=== PATIENT | female | born 1950 | race Caucasian/White ===

== ENCOUNTER 2019-10-03 09:49 | Outpatient (CLI) | payer MEDICARE, SELFPAY ==
--- NOTE | 2019-10-03 10:06 | ECG_ITS ---
Measurements Intervals [place] Rate: 62 P: 72 KS: 206 QRS: -22 QRSD: 94 T: 24 QT: 408 QTc: 417 Interpretive Statements SINUS RHYTHM BORDERLINE AV CONDUCTION DELAY BORDERLINE ST-T WAVE ABNORMALITY- ANT/INF LEADS BASELINE ARTIFACT- I, II, AVR BORDERLINE ECG Electronically Signed On 10-03-2019 10:35:05 DIRECTOR OPERATING ROOM by Mario Encarnacion D.O.
== END 2019-10-03 09:50 | disposition home or self-care (01) ==
PROVIDERS: PCP Family Medicine; Visit Provider Family Medicine
DX: R07.89 Other chest pain (principal); I45.9 Conduction disorder, unspecified
CPT/HCPCS: 93005

== ENCOUNTER 2020-03-27 08:29 | Outpatient (CLI) | payer MEDICARE, SELFPAY ==
--- NOTE | ~2020-03-27 | MM_ITS ---
EXAMINATION: MM screening genesis BI w frank HISTORY: Screening mammogram TECHNIQUE: Craniocaudal and mediolateral oblique 3-D tomosynthesis images were obtained and synthetic 2-D images were generated. CAD analysis was submitted and interpreted. COMPARISON: 6 01/19/2019, 12/24/2017, 11/30/2016 bilateral digital screening mammogram examinations BREAST PARENCHYMAL COMPOSITION: There are scattered areas of fibroglandular density. FINDINGS: Stable mild fibroglandular asymmetry. There is no evidence of suspicious mass, calcificatio n, or architectural distortion to suggest malignancy in either breast. There has been no suspicious i nterval change. IMPRESSION: 1. No mammographic evidence of malignancy. 2. Recommend routine screening mammography in one year. BI-RADS Category 2: Benign finding(s). Reviewed, dictated and finalized at location A.
--- NOTE | ~2020-03-27 | DEXA_ITS ---
Bone Density Report Name: Cornelia Busby Age: 70 Sex: Female Ethnicity: White Date of : 1950 Indication: postmenopausal; Referring Provider: CHRISTIANA JOSEPH Study: Bone densitometry was performed. Exam Date: March 27, 2020 Accession number: [id number] Bone Density: Region BMD T-score Z-score Classification AP Spine (L1-L4) 0.912 -1.2 1.0 Osteopenia Femoral Neck (Left) 0.687 -1.5 0.5 Osteopenia Total Hip (Left) 0.894 -0.4 1.2 Normal Total Hip Bilateral Avg 0.923 -0.2 1.5 Normal Femoral Neck (Right) 0.731 -1.1 0.9 Osteopenia Total Hip (Right) 0.951 0.1 1.7 Normal World Health Organization criteria for BMD impression classify patients as: Normal (T-score at or above -1.0), Osteopenia (T-score between -1.0 and -2.5), or Osteoporosis (T-score at or below -2.5). 10-year Fracture Risk(1): Major Osteoporotic Fracture 9.9% Hip Fracture 1.5% Reported Risk Factors: [place] (), Neck BMD=0.687, BMI=31.0 (1) FRAX(R) Version 3.08. Fracture probability calculated for an untreated patient. Fracture probability may be lower if the patient has received treatment. Previous Exams: Region Exam Age BMD T-score BMD Change BMD Change Date g/cm2 vs Baseline vs Previous AP Spine(L1-L4) 03/27/2020 70 0.912 -1.2 -0.131(-12.6%) -0.077(-7.8%)* 11/30/2016 66 0.989 -0.5 -0.054(-5.2%)# 0.062(6.7%)# 08/22/2013 63 0.927 -1.1 -0.116(-11.1%) 0.027(3.0%)* 07/20/2011 61 0.900 -1.3 -0.143(-13.7%) -0.060(-6.3%)# 05/07/2008 58 0.960 -0.8 -0.083(-7.9%)* -0.083(-7.9%)* 02/23/2005 55 1.043 0.0 Total Hip(Left) 03/27/2020 70 0.894 -0.4 -0.042(-4.5%)# -0.050(-5.3%)* 11/30/2016 66 0.944 0.0 0.009(0.9%)# 0.004(0.4%)# 08/22/2013 63 0.940 0.0 0.005(0.5%)# -0.011(-1.2%) 07/20/2011 61 0.952 0.1 0.016(1.7%)# 0.035(3.9%)# 05/07/2008 58 0.916 -0.2 -0.019(-2.1%) -0.019(-2.1%) 02/23/2005 55 0.935 -0.1 Total Hip(Right) 03/27/2020 70 0.951 0.1 -0.009(-0.9%)# -0.035(-3.6%)* 11/30/2016 66 0.987 0.4 0.026(2.7%)# 0.005(0.5%)# 08/22/2013 63 0.982 0.3 0.021(2.2%)# 0.006(0.6%) 07/20/2011 61 0.976 0.3 0.015(1.6%)# 0.035(3.8%)# 05/07/2008 58 0.941 0.0 -0.020(-2.1%) -0.020(-2.1%) 02/23/2005 55 0.961 0.2 *Denotes significance at 95% confidence level, LSC for AP Spine = 0.022 g/cm2, LSC for Total Hip = 0.027 g/cm2 Clinical Information Provided by Patient: Has used the following medications: V
== END 2020-03-27 08:30 | disposition home or self-care (01) ==
LOC: ANHIMG 08:30
PROVIDERS: PCP Family Medicine; Visit Provider Family Medicine
DX: Z12.31 Encounter for screening mammogram for malignant neoplasm of breast (principal); Z78.0 Asymptomatic menopausal state; M85.88 Other specified disorders of bone density and structure, other site; M85.852 Other specified disorders of bone density and structure, left thigh; M85.851 Other specified disorders of bone density and structure, right thigh
CPT/HCPCS: 77063; 77067; 77080

== ENCOUNTER 2021-06-03 09:56 | Outpatient (CLI) | payer MEDICARE, SELFPAY ==
--- NOTE | ~2021-06-03 | MM_ITS ---
EXAMINATION: MM screening genesis BI w frank HISTORY: Screening mammogram TECHNIQUE: Craniocaudal and mediolateral oblique 3-D tomosynthesis images were obtained and synthetic 2-D images were generated. CAD analysis was submitted and interpreted. COMPARISON: 03/27/2020, 01/19/2019, 12/14/2017 bilateral digital screening mammogram examinations BREAST PARENCHYMAL COMPOSITION: There are scattered areas of fibroglandular density. FINDINGS: There is no evidence of suspicious mass, calcification, or architectural distortion to sugg est malignancy in either breast. There has been no suspicious interval change. IMPRESSION: 1. No mammographic evidence of malignancy. 2. Recommend routine screening mammography in one year. BI-RADS Category 1: Negative Reviewed, dictated and finalized at location A.
== END 2021-06-03 09:57 | disposition home or self-care (01) ==
LOC: ANHIMG 09:58
PROVIDERS: PCP Family Medicine; Visit Provider Family Medicine
DX: Z12.31 Encounter for screening mammogram for malignant neoplasm of breast (principal)
CPT/HCPCS: 77063; 77067

== ENCOUNTER 2021-09-30 09:32 | Outpatient (CLI) | payer MEDICARE, SELFPAY ==
--- NOTE | ~2021-09-30 | XR_ITS ---
EXAMINATION: XR hip RT min 3V w AP pelvis INDICATION: Right hip pain TECHNIQUE: AP view of the pelvis and three views of the right hip are obtained. COMPARISON: 11/21/2012 FINDINGS: Bone alignment is normal. There is no fracture. There is moderate osteoarthritis of the hip s. The soft tissues are unremarkable. IMPRESSION: 1. Moderate osteoarthritis of the hips. Reviewed, dictated and finalized at location F. TED HISTORY TOUR GUIDE
== END 2021-09-30 09:33 | disposition home or self-care (01) ==
LOC: ANHIMG 09:33
PROVIDERS: PCP Family Medicine; Visit Provider Family Medicine
DX: M16.0 Bilateral primary osteoarthritis of hip (principal)
CPT/HCPCS: 73502

== ENCOUNTER 2022-09-08 09:44 | Outpatient (CLI) | payer MEDICARE, SELFPAY ==
--- NOTE | ~2022-09-08 | MM_ITS ---
EXAMINATION: MM screening genesis BI w frank HISTORY: Screening TECHNIQUE: Craniocaudal and mediolateral oblique 3-D tomosynthesis images were obtained and synthetic 2-D images were generated. CAD analysis was submitted and interpreted. COMPARISON: Comparison to multiple prior studies sequentially, with oldest reviewed study dated 09/20. BREAST PARENCHYMAL COMPOSITION: Breast composed of scattered areas of fibroglandular density FINDINGS: There is a new partially obscured low density mass in the central aspect of the right breas t. The left breast is stable without evidence for malignancy. IMPRESSION: 1. New obscured right breast mass located centrally. 2. Additional mammographic views and possible breast ultrasound are recommended. BI-RADS Category 0: Incomplete: Needs additional imaging evaluation. Reviewed, dictated and finalized at location A. LEIZER IMPRESSION: 1. New obscured right breast mass located centrally. 2. Additional mammographic views and possible breast ultrasound are recommended . BI-RADS Category 0: Incomplete: Needs additional imaging evaluation.
== END 2022-09-08 09:45 | disposition home or self-care (01) ==
PROVIDERS: PCP Family Medicine; Visit Provider Family Medicine
DX: Z12.31 Encounter for screening mammogram for malignant neoplasm of breast (principal); R92.8 Other abnormal and inconclusive findings on diagnostic imaging of breast
CPT/HCPCS: 77063; 77067

== ENCOUNTER 2022-09-25 12:40 | Outpatient (CLI) | payer MEDICARE, SELFPAY ==
--- NOTE | ~2022-09-25 | MMUS_ITS ---
EXAMINATION: MM diagnostic genesis RT w frank, US breast RT complete HISTORY: New obscured right central breast mass reported on 09/08/2022 screening mammogram TECHNIQUE: Additional 3-D tomosynthesis images of the right breast were performed and synthetic 2-D i mages were generated. CAD analysis was submitted and interpreted. High resolution complete right iron st ultrasound examination including all 4 quadrants and subareolar area was performed. COMPARISON: 09/08/2022 bilateral screening mammogram BREAST PARENCHYMAL COMPOSITION: The breasts are heterogeneously dense, which may obscure small masses . FINDINGS: MAMMOGRAPHIC FINDINGS: No suspicious mass, architectural distortion, malignant calcification, skin thickening or retraction is detected. The heterogeneously dense stroma may obscure a mass. Ultrasound examination therefore was performed. ULTRASOUND: No suspicious mass or shadowing, cyst or other significant sonographic finding is noted in the right breast. IMPRESSION: 1. No mammographic evidence of right breast malignancy 2. Routine annual mammographic screening is recommended BI-RADS Category 1: Negative Reviewed, dictated and finalized at location A. CHASER IMPRESSION: 1. No mammographic evidence of right breast malignancy 2. Routine annual mammographic screening is recommended BI-RADS Category 1: Negative
== END 2022-09-25 12:41 | disposition home or self-care (01) ==
LOC: ANHIMG 12:41
PROVIDERS: PCP Family Medicine; Visit Provider Physician Assistant
DX: R92.8 Other abnormal and inconclusive findings on diagnostic imaging of breast (principal)
CPT/HCPCS: 76641; 77061; 77065; G0279

== ENCOUNTER 2023-10-30 15:58 | Emergency (ER) | payer MEDICARE, SELFPAY ==
[2023-10-30 16:07] VITALS: BP 133/62; PULSE 71; RESP 16; TEMP 36.2; O2SAT 100
--- NOTE | 2023-10-30 16:19 | ED.FEMALEGU ---
HPI - Female Genitourinary General Chief complaint: Urogenital-Female Stated complaint: uti Time Seen by Provider: 10/30/23 16:08 Source: patient and RN notes reviewed Mode of arrival: ambulatory Limitations: no limitations History of Present Illness HPI Narrative: Patient presents today complaining of lower abdominal pressure and urinary frequency. Symptoms began today. Denies any additional symptoms to include dysuria, hematuria, back pain, fever. No ogkd-bbh-dliyrag treatment prior to arrival. Related Data Home Medications Medication Instructions Recorded Confirmed biotin-chromium 2 mg-600 mcg 1 cap PO DAILY 11/11/21 10/30/23 capsule famotidine 20 mg tablet 20 mg PO BID 02/22/23 10/30/23 magnesium 250 mg tablet 250 mg PO DAILY 02/22/23 10/30/23 losartan 25 mg tablet 25 mg PO DAILY 07/07/23 10/30/23 amitriptyline 25 mg tablet 25 mg PO DAILY 10/30/23 10/30/23 Allergies Allergy/AdvReac Type Severity Reaction Status Date / Time hydrocodone AdvReac Intermediate Hyperactive Verified 10/30/23 16:15 Review of Systems Review of Systems: CONSTITUTIONAL: Denies body aches, fever, chills, or sweats. EYES: Denies visual changes, redness, or discharge. ENT: Denies rhinorrhea, congestion, sore throat, or otalgia. CARDIOVASCULAR: Denies chest pain, palpitations, or edema. RESPIRATORY: Denies cough or dyspnea. GASTROINTESTINAL: Denies abdominal pain, nausea, vomiting, or diarrhea. GENITOURINARY: Denies dysuria or hematuria.+ frequency, lower abdominal pressure SKIN: Denies rash, itching, or wounds. MUSCULOSKELETAL: Denies back pain, joint pain, or myalgia. NEUROLOGIC: Denies headache, numbness, tingling, or weakness. PSYCH: Denies depression or anxiety. [facility] Past Medical History Medical History Anxiety Arthritis of shoulder region, right Chronic cholecystitis with calculus Encounter for immunization Essential (primary) hypertension Gastroesophageal reflux disease Insomnia Pure hypercholesterolemia Vitamin D deficiency Surgical History Surgical History History of bilateral tubal ligation History of cholecystectomy History of tonsillectomy Family History Family History Father Hypertension Family history of thyroid disease Family history of coronary artery disease Mother Hypertension Family history of diabetes mellitus in first degree relative Family history of malignant neoplasm of brain Family history of heart disease in male family member before age 55 Diabetes mellitus Family history of hypercholesterolemia Family history of coronary artery disease, Onset Age: 70 Sibling Patient's sister is in good health Patient's brother is in good health Social History Social History Smoking status: Never smoker Second hand tobacco smoke exposure: No Alcohol intake: current Alcohol use details: rare Substance use: never Substance use type: does not use Lack of Transportation: No Lack of Food: Never True Current Housing: I Have Housing Concerned About Future Housing: No Difficulty Paying Gas/Electric Bills: No Difficulty Paying for Meds: Decline to Answer Currently Unemployed: No Education: Associate Degree Difficulty w/ Childcare or Family Care: No Living arrangements: with family Occupation/Education: retired Gender identity (if verbalized by the patient): Female Sexual Orientation (if Verbalized by the Patient): Straight or Heterosexual Spiritual care concerns: No Agree to blood products: Yes Comments At time of signature, I have reviewed and agree with nursing past medical, surgical, social and family history unless otherwise noted. Please see nursing chart for further information. There is no relevant family histo
== END 2023-10-30 16:21 | disposition home or self-care (01) ==
PROVIDERS: Emergency Provider Nurse Practitioner; PCP Family Medicine
DX: N39.0 Urinary tract infection, site not specified (principal); B96.20 Unspecified Escherichia coli [E. coli] as the cause of diseases classified elsewhere; I10 Essential (primary) hypertension; K21.9 Gastro-esophageal reflux disease without esophagitis; E78.00 Pure hypercholesterolemia, unspecified; M19.011 Primary osteoarthritis, right shoulder
CPT/HCPCS: 81003; 87077; 87086; 87088; 87186; 99213; G0463

== ENCOUNTER 2024-01-14 08:48 | Outpatient (CLI) | payer MEDICARE, SELFPAY ==
--- NOTE | ~2024-01-14 | MM_ITS ---
EXAMINATION: MM screening genesis BI w frank HISTORY: Screening TECHNIQUE: Craniocaudal and mediolateral oblique 3-D tomosynthesis images were obtained and synthetic 2-D images were generated. CAD analysis was submitted and interpreted. COMPARISON: Comparison to multiple prior studies sequentially, with oldest reviewed study dated 03/2018. BREAST PARENCHYMAL COMPOSITION: The breasts are heterogeneously dense, which may obscure small masses . FINDINGS: There is no evidence of suspicious mass, calcification, or architectural distortion to sugg est malignancy in either breast. There has been no suspicious interval change. IMPRESSION: 1. No mammographic evidence of malignancy. 2. Recommend routine screening mammography in one year. BI-RADS Category 1: Negative Reviewed, dictated and finalized at location B.
== END 2024-01-14 08:49 | disposition home or self-care (01) ==
PROVIDERS: PCP Family Medicine; Visit Provider Physician Assistant Medical
DX: Z12.31 Encounter for screening mammogram for malignant neoplasm of breast (principal)
CPT/HCPCS: 77063; 77067

== ENCOUNTER 2024-03-18 08:44 | Outpatient (CLI) | payer MEDICARE, SELFPAY ==
--- NOTE | ~2024-03-18 | DEXA_ITS ---
Bone Density Report Name: NABOR JAVED Age: 74 Sex: Female Ethnicity: White Date of : 1950 Indication: osteopenia; Referring Provider: CHRISTIANA JOSEPH Study: Bone densitometry was performed. Exam Date: March 18, 2024 Accession number: [id number] Bone Density: Region BMD T-score Z-score Classification AP Spine(L1-L4) 0.973 -0.7 1.8 Normal Femoral Neck (Left) 0.714 -1.2 0.9 Osteopenia Total Hip (Left) 0.901 -0.3 1.5 Normal Femoral Neck (Right) 0.719 -1.2 1.0 Osteopenia Total Hip (Right) 0.947 0.0 1.9 Normal Total Hip Mean 0.924 -0.2 1.7 Normal World Health Organization criteria for BMD impression classify patients as: Normal (T-score at or above -1.0), Osteopenia (T-score between -1.0 and -2.5), or Osteoporosis (T-score at or below -2.5). 10-year Fracture Risk(1): Major Osteoporotic Fracture 10% Hip Fracture 1.8% Reported Risk Factors: [place] (), Neck BMD=0.714, BMI=31.6 (1) FRAX(R) Version 3.08. Fracture probability calculated for an untreated patient. Fracture probability may be lower if the patient has received treatment. Previous Exams: Region Exam Age BMD T-score BMD Change BMD Change Date g/cm2 vs Baseline vs Previous AP Spine (L1-L4) 03/18/2024 74 0.973 -0.7 0.046 (5.0%)# 0.061 (6.7%)* 03/27/2020 70 0.912 -1.2 -0.015 (-1.6%) -0.077 (-7.8%) 11/30/2016 66 0.989 -0.5 0.062 (6.7%)# 0.062 (6.7%)# 08/22/2013 63 0.927 -1.1 Total Hip(Left) 03/18/2024 74 0.901 -0.3 -0.039 (-4.1%) 0.008 (0.9%) 03/27/2020 70 0.894 -0.4 -0.047 (-4.9%) -0.050 (-5.3%) 11/30/2016 66 0.944 0.0 0.004 (0.4%)# 0.004 (0.4%)# 08/22/2013 63 0.940 0.0 Total Hip(Right) 03/18/2024 74 0.947 0.0 -0.035 (-3.6%) -0.005 (-0.5%) 03/27/2020 70 0.951 0.1 -0.030 (-3.1%) -0.035 (-3.6%) 11/30/2016 66 0.987 0.4 0.005 (0.5%)# 0.005 (0.5%)# 08/22/2013 63 0.982 0.3 *Denotes significance at 95% confidence level, LSC for AP Spine = 0.022 g/cm2, LSC for Total Hip = 0.027 g/cm2 # Denotes dissimilar scan types or analysis methods Clinical Information Provided by Patient: Has used the following medications: Vitamin D, Calcium Patient maximum height was 63 Menopause Age: 53 Drinks caffeinated beverages Onset of menses at age 13 Number of children 4 Impression: The patient has low bone mass, based on the Left Femoral Neck T-score. The patient has an estimate
== END 2024-03-18 08:45 | disposition home or self-care (01) ==
LOC: ANHIMG 08:45
PROVIDERS: PCP Family Medicine; Visit Provider Family Medicine
DX: Z78.0 Asymptomatic menopausal state (principal); M85.852 Other specified disorders of bone density and structure, left thigh; M85.851 Other specified disorders of bone density and structure, right thigh
CPT/HCPCS: 77080

== ENCOUNTER 2024-08-21 08:02 | Emergency (ER) | payer MEDICARE, SELFPAY ==
--- NOTE | 2024-08-21 08:06 | ED.FEMALEGU ---
HPI - Female Genitourinary General Chief complaint: Urogenital-Female Stated complaint: uti symptoms Time Seen by Provider: 08/21/24 08:05 Source: patient, RN notes reviewed and old records reviewed Mode of arrival: ambulatory Limitations: no limitations History of Present Illness HPI Narrative: patient presents with complaints of urinary frequency and burning. She reports that she began with some pressure and frequency couple of days ago, but awakened this morning with increased pressure and dysuria. Reports that she last had a UTI over the summer, does not get them frequently. She denies any back pain or belly pain. She denies any fever, chills, sweats. She denies any nausea or vomiting. Denies any jaqueline hematuria Related Data Home Medications ?Medication ?Instructions ?Recorded ?Confirmed ?Last Taken ?Type famotidine 20 mg tablet 20 mg PO BID 02/22/23 10/30/23 Unknown History losartan 25 mg tablet 25 mg PO DAILY 07/07/23 10/30/23 Unknown History amitriptyline 25 mg tablet 25 mg PO DAILY 10/30/23 10/30/23 Unknown History melatonin 1 mg tablet 1 mg PO DAILY 08/21/24 Unknown History Allergies Allergy/AdvReac Type Severity Reaction Status Date / Time hydrocodone AdvReac Intermediate Hyperactive Verified 08/21/24 08:54 shrimp AdvReac Intermediate Nausea Verified 08/21/24 08:54 Review of Systems Review of Systems: All systems reviewed & are unremarkable except as noted in HPI and below Constitutional: Constitutional: Reports no additional constitutional complaints ENT: Reports system reviewed and no additional complaints, except as documented Cardiovascular: Cardiovascular: Reports no additional cardiovascular complaints Respiratory: Respiratory: Reports no additional respiratory complaints Gastrointestinal: Gastrointestinal: Reports no additional gastrointestinal complaints Genitourinary: Genitourinary: Reports nocturia, Reports dysuria, Reports urinary hesitancy and Reports urinary urgency [facility] Past Medical History Medical History Insomnia Encounter for immunization Arthritis of shoulder region, right Anxiety Chronic cholecystitis with calculus Essential (primary) hypertension Gastroesophageal reflux disease Pure hypercholesterolemia Vitamin D deficiency Surgical History Surgical History History of bilateral tubal ligation History of tonsillectomy History of cholecystectomy Family History Family History Father Hypertension Family history of thyroid disease Family history of coronary artery disease Mother Hypertension Family history of diabetes mellitus in first degree relative Family history of malignant neoplasm of brain Family history of heart disease in male family member before age 55 Diabetes mellitus Family history of hypercholesterolemia Family history of coronary artery disease, Onset Age: 70 Sibling Patient's sister is in good health Patient's brother is in good health Social History Social History Smoking status: Never smoker Second hand tobacco smoke exposure: No Alcohol intake: current Alcohol use details: rare Substance use: never Substance use type: does not use Lack of Transportation: No Lack of Food: Never True Current Housing: I Have Housing Concerned About Future Housing: No Difficulty Paying Gas/Electric Bills: No Difficulty Paying for Meds: Decline to Answer Currently Unemployed: No Education: Associate Degree Difficulty w/ Childcare or Family Care: No Living arrangements: with family Occupation/Education: retired Gender identity (if verbalized by the patient): Female Sexual Orientation (if Verbalized by the Patient): Straight or Heterosexual Spiritual care concerns: No Agree to blood products: Yes Comments At the time of my signature, I reviewed and agree with the nursing past medical, surgical, social, and family history. There is no relevant family history pertinent to the patient complaint. Exam Const: General: cooperative, no acute distress, alert and awake Orientation/consciousness: oriented to person, oriented to place and oriented to time HENMT: Head: normal to inspection Resp: Effort & Inspection: normal respiratory effort and able to speak in complete sentences Auscultation: clear to auscultation bilaterally, no crackles, no rales, no rhonchi and no wheezes Cardio: Palpation: normal PMI Rate: regular rate Rhythm: regular rhythm Heart sounds: S1 normal heart sound present and S2 normal heart sound present : General: Yes bladder normal to palpation and Yes no CVA tenderness Neuro: General: oriented to person, oriented to place and oriented to time Cranial nerves: Yes CN's II-XII intact bilaterally Psych: Appearance: grossly normal Thought process: Normal thought process present Insight: Good insight present (Psych) Judgement: Good judgement present (Psych) Course Course Level of Care: Express Care Visit Vital Signs Vital signs: Reviewed MDM - Female Genitourinary MDM Narrative Medical decision making narrative: UA concerning for UTI. Treat with Macrobid, culture sent. Patient nontoxic appearing stable for discharge home on p.o. antibiotic therapy. Discharge instructions reviewed with patient, as well as provided in writing per nursing staff. The instructions also include specific and strict return/GO TO THE ER as well as f/u information. All questions have been answered, and the patient deny any further questions with discharge and discharge plan. Some parts of this dictation were generated by voice recognition software and may contain typographical and/or grammatical inaccuracies. Differential Diagnosis Differential diagnosis: Likely urinary tract infection and cystitis Medical Records Attestation: I reviewed the patient's medical records. Lab Data Attestation: I reviewed the patient's lab results. Discharge Plan Discharge Clinical Impression: UTI (urinary tract infection), bacterial Patient Disposition: Home, Self-Care Condition: Stable Instructions: Antibiotic Form, Urinary Tract Infection in Women (ED) Additional Instructions: take medications as prescribed. Follow-up with primary care provider. Emergency department for any new or worsening symptoms Patient Language: Kinyarwanda Prescriptions: New nitrofurantoin monohyd/m-cryst [Macrobid] 100 mg capsule 100 mg PO Q12H 5 Days Qty: 10 0RF Rx Instructions: must administer with a meal/food No Action amitriptyline 25 mg tablet 25 mg PO DAILY metoprolol succinate 25 mg tablet extended release 24 hr 25 mg PO DAILY Qty: 90 3RF famotidine 20 mg tablet 20 mg PO BID magnesium 250 mg tablet 250 mg PO DAILY tramadol 50 mg tablet 50 mg PO Q6H PRN (Reason: pain) Qty: 20 0RF calcium citrate-vitamin D3 [Calcium Citrate + D] 315-200 mg-unit tablet 1 tablet PO DAILY Qty: 30 0RF biotin-chromium 2-600 mg-mcg capsule 1 cap PO DAILY zolpidem [Ambien] 5 mg tablet 2.5 mg PO QHS PRN (Reason: insomnia) Qty: 30 1RF losartan 25 mg tablet 25 mg PO DAILY fluoxetine 10 mg capsule 10 mg PO DAILY Qty: 90 2RF Rx Instructions: in the evening ergocalciferol (vitamin D2) 1,250 mcg (50,000 unit) capsule 1,250 mcg PO WEEKLY Qty: 12 3RF simvastatin 20 mg tablet See Rx Instructions .ROUTE .COMPLEX Qty: 90 3RF Dose Instruction: TAKE 1 TABLET BY MOUTH EVERY DAY IN THE EVENING Rx Instructions: TAKE 1 TABLET BY MOUTH EVERY DAY IN THE EVENING Follow-up/Referrals: Meera Hurt MD [Primary Care Provider] - 2 Weeks Time of Disposition: 08:57
[2024-08-21 08:12] VITALS: BP 147/74; PULSE 82; RESP 18; TEMP 36.4; O2SAT 100
[2024-08-21 08:49] LABS: EDUAAPPEAR Cloudy; EDUABILI Negative (Negative); EDUABLOOD 2+ (Negative); EDUACOLOR1 Light/Pale; EDUAGLUCOSE Negative (Negative); EDUAKETONE Negative (Negative); EDUALEUKO 3+ (Negative); EDUANITRATE Negative (Negative); EDUAPROTEIN Negative (Negative); EDUASPGRAVITY 1.015; EDUAUROBILI 0.2
== END 2024-08-21 09:02 | disposition home or self-care (01) ==
PROVIDERS: Emergency Provider Nurse Practitioner Family; PCP Family Medicine
DX: N39.0 Urinary tract infection, site not specified (principal); B96.20 Unspecified Escherichia coli [E. coli] as the cause of diseases classified elsewhere; I10 Essential (primary) hypertension; K21.9 Gastro-esophageal reflux disease without esophagitis; E78.00 Pure hypercholesterolemia, unspecified; M19.011 Primary osteoarthritis, right shoulder
CPT/HCPCS: 81003; 87086; 87186; 99213; G0463

== ENCOUNTER 2025-02-13 08:28 | Outpatient (CLI) | payer MEDICARE, SELFPAY ==
--- NOTE | ~2025-02-13 | MM_ITS ---
EXAMINATION: MM screening genesis BI w frank HISTORY: Screening TECHNIQUE: Craniocaudal and mediolateral oblique 3-D tomosynthesis images were obtained and synthetic 2-D images were generated. CAD analysis was submitted and interpreted. COMPARISON: Comparison to multiple prior studies sequentially, with oldest reviewed study dated 01/19. BREAST PARENCHYMAL COMPOSITION: Dense: The breasts are heterogeneously dense, which may obscure small masses FINDINGS: The right breast is stable without evidence for malignancy. There is a new cluster of pleom orphic calcifications in the upper outer quadrant of the left breast, posterior third. IMPRESSION: 1. New cluster of pleomorphic calcifications upper outer quadrant of the left breast posterior third. 2. Magnification views are recommended. BI-RADS Category 0: Incomplete: Needs additional imaging evaluation. Reviewed, dictated and finalized at location A. IMPRESSION: 1. New cluster of pleomorphic calcifications upper outer quadrant of the left b reast posterior third. 2. Magnification views are recommended. BI-RADS Category 0: Incomplete: Needs additional imaging evaluation.
--- OUTSIDE RECORDS SUMMARY | 2025-02-13 08:30 | XMS_ITS | Encounter Summary ---
Author Organization [facility] Address [facility] access hospital[address] [place] [address] Care Team Providers Care Transit Man Name Role Phone Meera Hurt MD Primary Care Provider [phone] Felipe Day MD Unavailable [phone] Encounter Details Date Type Department Care Team (Late st Contact Info) Description 12/06/2019 Abstract [facility], [address] [address] Jan Quintana MA Social History Tobacco Use Types Packs/Day Years Used Date Smoking Tobacco: Never Smokeless Tobacco: Never Alcohol Use Standard Drinks/Week Comments No 0 (1 standard drink = 0.6 oz pur e alcohol) AUDIT-C Answer Date Recorded Frequency of Alcohol Consumption Never 08/16/2018 Average Number of Drinks Not on file 019 Frequency of Binge Drinking Not on file 03/2019 Comments No Sex and Gender Information Value Date Recorded Sex Assigned at Not on file Legal Sex Female 8:24 PM CDT Gender Identity Not on file Sexual Orientation Not on file COVID-19 Exposure Response Date Recorded In the last month, have you been in contact with someone who was confirmed or suspected to have Coronavirus / COVID-19? No / Unsure 12/04/2019 2:49 PM CDT documented as of this encounter Plan of Treatment Upcoming Encounters Date Type Department Care Team (Late st Contact Info) Description 03/09/2025 11:45 AM CDT Office Visit [facility] [address] [place] [phone] Albaro Drew MD [address] [facility] [address] [place] [address] documented as of this encounter Procedures Procedure Name Priority Date/Time Associated Diagnosis Comments CBC (OUTSIDE LAB) Routine 11/09/2019 COMPREHENSIVE METABOLIC PANEL Routine 11/09/2019 LIPID PANEL Routine 11/09/2019 THYROID STIM HORMONE TSH Routine 11/09/2019 VITAMIN D, 25 OH Routine 11/09/2019 documented in this encounter Results * VITAMIN D, 25 OH (11/09/2019) VITAMIN D 25 HYDROXY S/P/B 37 11/09/2019 [facility] LABORATORY Final Result * THYROID STIM HORMONE, TSH (11/09/2019) TSH 2.10 11/09/2019 us [facility] LABORATORY Final Result * CBC (OUTSIDE LAB) (11/09/2019) WBC 4.6 HGB 13.6 HCT 40.7 PLT 249 11/09/2019 us [facility] Abstract LAB-OUTSIDE/ABSTRACTED Final Result * (ABNORMAL) COMPREHENSIVE METABOLIC PANEL (11/09/2019) SODIUM S/P/B 139 POTASSIUM S/P/B 4.1 CO2 25 CHLORIDE S/P/B 102 GLUCOSE 102 mg/dL CALCIUM S/P/B 9.5 BUN 11 CREATININE S/P/B 0.66 0.5 - 1.0 EGFR AFR. AMER. 103(A) <=90 EGFR NON-AFR. AMER. 89 <=90 ALKALINE PHOSPHATASE S/P/B 65 ALT 13 AST 16 BILIRUBIN TOTAL S/P/B 1.1 ALBUMIN S/P/B 4.4 3.5 - 5.0 TOTAL PROTEIN S/P/B 6.6 GLOBULIN 2.2 11/09/2019 us [facility] LAB[facility]AT[facility] Final Result * LIPID PANEL (11/09/2019) CHOLESTEROL 175 HDL 54 TRIGLYCERIDES 104 LDL (CALCULATED) 101 11/09/2019 [facility] LAB[facility]AT[facility] Final Result documented in this encounter Visit Diagnoses Not on filedocumented in this encounter Care Teams Transit Man Relationship Specialty Start Date End Date Meera Hurt MD PCP - General FAMILY PRACTICE 07/12/18 Felipe Day MD GASTROENTEROLOGY 08/16/18 documented as of this encounter
--- OUTSIDE RECORDS SUMMARY | 2025-02-13 08:30 | XMS_ITS | Encounter Summary ---
Author Organization [facility] Address [facility] [place] [address] Care Team Providers Care Health Science Writer Name Role Phone Meera Hrut MD Primary Care Provider [phone] Felipe Day MD Unavailable [phone] Encounter Details Date Type Department Care Team (Late st Contact Info) Description 05/26/2017 Abstract [facility] [address] [facility] [place] [address] , Shyanne Barbour MD Social History Tobacco Use Types Packs/Day Years Used Date Smoking Tobacco: Never Assessed Comments Unknown Sex and Gender Information Value Date Recorded Sex Assigned at Not on file Legal Sex Female 8:24 PM CDT Gender Identity Not on file Sexual Orientation Not on file documented as of this encounter Plan of Treatment Upcoming Encounters Date Type Department Care Team (Late st Contact Info) Description 03/09/2025 11:45 AM CDT Office Visit [facility] [address] [facility] [place] [phone] Albaro Drew MD [address] [address] documented as of this encounter Visit Diagnoses Not on filedocumented in this encounter Care Teams Health Science Writer Relationship Specialty Start Date End Date Meera Hurt MD PCP - General FAMILY PRACTICE 07/12/18 Felipe Day MD GASTROENTEROLOGY 08/16/18 documented as of this encounter
--- OUTSIDE RECORDS SUMMARY | 2025-02-13 08:30 | XMS_ITS | Encounter Summary ---
Author Organization [facility] Address [facility] [place] [address] Care Team Providers Care Airplane Refueler Name Role Phone Meera Hurt MD Primary Care Provider [phone] Felipe Day MD Unavailable [phone] Encounter Details Date Type Department Care Team (Late st Contact Info) Description 05/09/2013 Abstract [facility] CONVERSION [address] [place] [address] , Shyanne Barbour MD Social History Tobacco [...] Description 03/09/2025 11:45 AM CDT Office Visit [facility] [address] [place] [phone] Albaro Drew MD [address] [address] documented as of this encounter Visit Diagnoses Not on filedocumented in this encounter Care Teams Airplane Refueler Relationship Specialty Start Date End Date Meera Hurt MD PCP - General FAMILY PRACTICE 07/12/18 Felipe Day MD GASTROENTEROLOGY 08/16/18 documented as of this encounter
--- OUTSIDE RECORDS SUMMARY | 2025-02-13 08:30 | XMS_ITS | Encounter Summary ---
Author Organization [facility] Address [facility] [place] [address] Care Team Providers Care Sheetmetal Worker Name Role Phone Meera Hurt MD Primary Care Provider [phone] Felipe Day MD Unavailable [phone] Encounter Details Date Type Department Care Team (Latest Contact Info) Description 01/07/2023 [employer] Message Enc [facility] - [facility] [address] [facility] [place] [phone] Annamarie Lugo NP [address] [facility] [place] [address] Medication update Social History Tobacco Use Types Packs/Day Years Used Date Smoking Tobacco: Never Smokeless Tobacco: Never Alcohol Use Standard Drinks/Week Comments No 0 (1 standard drink = 0.6 oz pur e alcohol) AUDIT-C Answer Date Recorded Frequency of Alcohol Consumption Never 08/16/2018 Average Number of Drinks Not on file 019 Frequency of Binge Drinking Not on file 03/2019 PHQ-2 Answer Date Recorded Patient Health Questionnaire-2 Score 1 11/25/2022 Comments No Sex and Gender Information Value Date Recorded Sex Assigned at Not on file Legal Sex Female 8:24 PM CDT Gender Identity Not on file Sexual Orientation Not on file documented as of this encounter Plan of Treatment Upcoming Encounters Date Type Department Care Team (Late st Contact Info) Description 03/09/2025 11:45 AM CDT [facility] [address] [place] [phone] Albaro Drew MD [facility]. [facility] [address] [place] [address] documented as of this encounter Visit Diagnoses Not on filedocumented in this encounter Care Teams Sheetmetal Worker Relationship Specialty Start Date End Date Meera Hurt MD PCP - General FAMILY PRACTICE 07/12/18 Felipe Day MD GASTROENTEROLOGY 08/16/18 documented as of this encounter
--- OUTSIDE RECORDS SUMMARY | 2025-02-13 08:30 | XMS_ITS | Clinical Summary ---
Author Organization [facility] Address [address] [place] [address] Care Team Providers Care Rf Manager Name Role Phone Meera Hurt MD Primary Care Provider [phone] Felipe Day MD Unavailable [phone] Allergies Active Allergy Reactions Criticality Noted Date Comments Hydrocodone-Acetaminophen Hyperactive 0 Couldn't sleep Lisinopril Cough 07/24/2022 Shellfish Allergy Nausea and Vomiting 0 Medications simvastatin 20 MG tablet Take 1 tablet (20 mg total) by mouth daily. 2 06/04/2018 Active calcium carbonate-vitami n D 600-400 MG-UNIT tabletIndication s:PT HOLDING 01-04-2020 Take 1 tablet by mouth 2 (two) times daily. Indications: PT HOLDING 01-04-2020 Active melatonin 1 MG tablet Take 2 tablets (2 mg total) by mouth nightly at bedtime. Active vitamin D2, ergocalciferol, (DRISDOL) 1.25 mg capsule Take 1 capsule (1.25 mg total) by mouth once a week. 02/05/2024 Active metoprolol succinate ER (TOPROL-XL) 25 MG 24 hr tablet TAKE 1 TABLET (25 MG TOTAL) BY MOUTH DAILY. 90 tablet 3 05/15/2024 Active losartan (COZAAR) 25 MG tablet TAKE 1 TABLET (25 MG TOTAL) BY MOUTH DAILY. 90 tablet 2 07/10/2024 Active amitriptyline (ELAVIL) 25 MG tabletIndication s:Gastroesophage al reflux disease, unspecified whether esophagitis present,Epigastr ic pain Take 1 tablet (25 mg total) by mouth nightly at bedtime. 90 tablet 1 10/09/2024 Active famotidine (PEPCID) 20 MG tabletIndication s:Epigastric pain TAKE 1 TABLET BY MOUTH 2 TIMES DAILY NEEDED FOR HEARTBURN. 180 tablet 1 10/09/2024 Active Active Problems Problem Noted Date Diagnosed Date Class 1 obesity due to exces s calories without serious comorbidity with body mass index (BMI) of 31.0 to 31.9 in adult 02/18/2024 Assessment & Plan (02/18/2024 9:51 AM CDT): She is obese with a Body mass index is 31 kg/m . She was educated on lifestyle modifications including diet and exercise. She exercises 4-5 hours a week doing land and water aerobics. Encouraged continuation of workout regimen Gastroesophageal reflux dise ase, unspecified whether esophagitis present 09/23/2023 Epigastric pain 09/23/2023 Esophageal pain 09/23/2023 Bile salt gastritis 09/23/2023 Low back pain 07/19/2023 Bilateral hip pain 07/19/2023 Essential (primary) hypertension 07/18/2021 Assessment & Plan (02/18/2024 9:47 AM CDT): Blood pressure well controlled at 126/70 mmHg in office today. Patient monitors blood pressure every few days at home with consistent readings. Continue losartan 25 mg and toprol-XL 25 mg daily. Assessment & Plan (07/24/2022 9:18 AM CORPORATE COMMUNICATIONS SPECIALIST): Well controlled on current regimen Although due to cough - could be due to lisinopril - we will switch to losartan Assessment & Plan (07/18/2021 10:12 AM CORPORATE COMMUNICATIONS SPECIALIST): Her blood pressure is well controlled according to her home readings, even though her blood pressure in the office today is elevated. Continue lisinopril 10 mg daily. Palpitations 07/18/2021 Assessment & Plan (07/24/2022 8:49 AM CORPORATE COMMUNICATIONS SPECIALIST): Well controlled No issues Assessment & Plan (07/18/2021 10:12 AM CORPORATE COMMUNICATIONS SPECIALIST): Her palpitations are well controlled. Continue metoprolol succinate 25 mg daily. Hyperlipidemia, mixed 07/18/2021 Assessment & Plan (02/18/2024 9:49 AM CDT): Recent lipid panel in August with LDL of 93. Continue Simvastatin 20mg. Assessment & Plan (07/24/2022 9:19 AM CORPORATE COMMUNICATIONS SPECIALIST): 06/12/22 Total cholesterol 154 Triglycerides 1822 HDL 48 LDL 78 Continued on simvastatin 20mg daily Assessment & Plan (07/18/2021 10:13 AM CORPORATE COMMUNICATIONS SPECIALIST): Her total cholesterol has been between 160 and 180 per her report. We can continue to monitor and pursue lifestyle changes. She is currently not on statin therapy. Impingement syndrome of right shoulder Assessment & Plan (05/13/2021 11:52 AM CDT): Celebrex was giving relatively good relief until she forgot to take it for 3 days. She also stopped doing her exercises. Increased shoulder discomfort. Patient will get back on her Celebrex. Would like to avoid steroid injections. If pain increases consider steroid injection. Further evaluation with MRI if needed. Assessment & Plan (04/01/2021 10:04 AM CDT): We discussed the risks, benefits and alternatives. She is already been through 2 rounds of formal physical therapy. Would still encourage her to continue with home excise. Even with her history of a duodenal ulcer we will try a short round 1 month of Celebrex as an anti-inflammatory. She would like to avoid steroids at this time. Although we did offer injection versus Medrol Dosepak. We will also try to get her set up for a TENS unit to help with the discomfort. If there is no significant improvement may consider MRI of the shoulder. She does have a history of neck pain without numbness and tingling. If no significant pathology noted in the shoulder may need to consider further work-up of the cervical spine. Neck pain 04/01/2021 Assessment & Plan (04/01/2021 10:05 AM CDT): Hopefully more aggravation with the impingement syndrome of the shoulder than it is pathology to the cervical spine. History of duodenal ulcer 04/01/2021 Assessment & Plan (04/01/2021 10:05 AM CDT): Therefore we will only do a short round of nonsteroidal anti-inflammatories Right shoulder pain 07/09/2020 Chest pain in adult 11/24/2019 Other tear of meniscus of ri ght knee as current injury, unspecified meniscus, initial encounter 09/04/2019 Tear of meniscus of right knee 05/12/2019 Knee pain, right 01/25/2019 Overview (01/25/2019): Physical Therapy Visit Note: Patient Name: Cornelia Busby Diagnosis: No primary diagnosis found. SUBJECTIVE OBJECTIVE Treatment provided today: ASSESSMENT PLAN Arthritis Resolved Problems Problem Noted Date Diagnosed Date Resolved Date Encounter for screening colonoscopy 09/23/2023 09/27/2023 Encounter for screening colonoscopy 09/23/2023 10/18/2023 Encounter for screening colonoscopy 09/23/2023 11/08/2023 Immunizations Immunization Administration Dates Next Due Fluzone High Dose - >Age 65 (Prefilled Syringe) 05/07/2020,05/26/2019,05/02/2017,2015,05/28/2015 MODERNA COVID-19 (12+) MRNA, LNP-S, PF, 100 MCG/ 0.5 ML DOSE 10/03/2020,09/05/2020 Pneumococcal (Pneumovax 23) 05/24/2019 Pneumococcal (Prevnar 13) 05/23/2018 Shingrix 02/22/2020,10/10/2019 Zoster (Zostavax) 47528 Unt/0.65Ml 03/04/2013 Family History Medical History Relation Comments Heart Attack Mother Open Heart Mother glioblastoma Mother Relation Status Comments Brother 1 (Age 70) Brother 2 Alive Father (Age 86) Maternal Grandfather Maternal Grandmother Mother (Age 86) Paternal Grandfather Paternal Grandmother Sister 1 Alive Sister 2 Alive Social History Tobacco Use Types Packs/Day Years Used Date Smoking Tobacco: Never Smokeless Tobacco: Never Tobacco Cessation:Counseling Given: No Alcohol Use Standard Drinks/Week Comments No 0 (1 standard drink = 0.6 oz pur e alcohol) AUDIT-C Answer Date Recorded Frequency of Alcohol Consumption Never 08/16/2018 Average Number of Drinks Not on file 019 Frequency of Binge Drinking Not on file 03/2019 PHQ-2 Answer Date Recorded Patient Health Questionnaire-2 Score 0 10/09/2024 Comments No Sex and Gender Information Value Date Recorded Sex Assigned at Not on file Legal Sex Female 8:24 PM CDT Gender Identity Not on file Sexual Orientation Not on file Last Filed Vital Signs Vital Sign Reading Time Taken Comments Blood Pressure 121/70 10/09/2024 3:25 PM CORPORATE COMMUNICATIONS SPECIALIST Pulse 78 10/09/2024 3:25 PM CORPORATE COMMUNICATIONS SPECIALIST Temperature 36.4 C (97.6 F) 10/09/2024 3:25 PM CORPORATE COMMUNICATIONS SPECIALIST Respiratory Rate 18 10/09/2024 3:25 PM CORPORATE COMMUNICATIONS SPECIALIST Oxygen Saturation 98% 10/09/2024 3:25 PM CORPORATE COMMUNICATIONS SPECIALIST Inhaled Oxygen Concentration - - Weight 77.1 kg (170 lb) 10/09/2024 3:25 PM CORPORATE COMMUNICATIONS SPECIALIST Height 160 cm (5' 3) 10/09/2024 3:25 PM CORPORATE COMMUNICATIONS SPECIALIST Body Mass Index 30.11 10/09/2024 3:25 PM CORPORATE COMMUNICATIONS SPECIALIST Plan of Treatment Upcoming Encounters Date Type Department Care Team (Late st Contact Info) Description 03/09/2025 11:45 AM CDT [facility] [address] [place] [id number] Albaro Drew MD [facility]. [address] [phone] Health Maintenance Due Date Last Done Comments Hepatitis C 01/12/1966 DTaP, Tdap and Td Vaccines ( 1 - Tdap) 01/12/1967 Annual Medicare Wellness Visit 01/12/2013 Dexa Scan (General) 01/12/2013 RSV Immunization or 60+ Years (1 - 1-dose 75+ series) 01/12/2023 COVID-19 Vaccine (2023- 5 season) 2024 10/03/2020, 09/05/2020 Pneumococcal Vaccine: 50+ Years Completed 05/24/2019, 05/23/2018 Zoster Vaccines Completed 02/22/2020, 10/10/2019, 03/04/2013 Colorectal Cancer Screening Colonoscopy (10 Years) Discontinued 11/03/2023 PHQ-2 (Physician [place]) Completed 10/09/2024 Meningococcal B Vaccine Aged Out No l onger eligible based on patient's age to complete this topic Meningococcal Vaccine Aged Out No sheila catina eligible based on patient's age to complete this topic RSV Immunizations Under 20 Months Aged Out No longer eligible based on patient's age to complete this topic Insurance MEDICARE [facility] INSURANCE MEDICARE [facility] INSURANCE Care Teams Rf Manager Relationship Specialty Start Date End Date Meera Hurt MD PCP - General FAMILY PRACTICE 07/12/18 Felipe Day MD GASTROENTEROLOGY 08/16/18
--- OUTSIDE RECORDS SUMMARY | 2025-02-13 08:30 | XMS_ITS | Encounter Summary ---
Author Organization [facility] Address [facility] [place] [address] Care Team Providers Care Patient Care Specialist Name Role Phone Meera Hurt MD Primary Care Provider [phone] Felipe Day MD Unavailable [phone] Encounter Details Date Type Department Care Team (Latest Contact Info) Description 03/15/2024 [place] Message Enc [facility] Multispecialty [facility] - [facility] [address] [facility], [address] [place] [phone] Oj Bills MD [address] [facility] [address] [place] [address] Refill Famotidine Social History Tobacco Use Types Packs/Day Years [...] Date Recorded Patient Health Questionnaire-2 Score 0 10/13/2023 Comments No Sex and Gender Information Value Date Recorded Sex Assigned at Not on file Legal Sex Female 8:24 PM CDT Gender Identity Not on file Sexual Orientation Not on file documented as of this encounter Plan of Treatment Upcoming Encounters Date Type Department Care Team (Late st Contact Info) Description 03/09/2025 11:45 AM CDT [facility] [address] [place] [address] Albaro Drew MD [facility]. [facility] [address] [place] [address] documented as of this encounter Visit Diagnoses Not on filedocumented in this encounter Care Teams Patient Care Specialist Relationship Specialty Start Date End Date Meera Hurt MD PCP - General FAMILY PRACTICE 07/12/18 Felipe Day MD GASTROENTEROLOGY 08/16/18 documented as of this encounter
--- OUTSIDE RECORDS SUMMARY | 2025-02-13 08:30 | XMS_ITS | Data Portability ---
Author Organization [facility] [place] Address [address] [place] [address] [place] [address] Assessment Encounter Date Assessment Date Assessment LastModified by Organization Details LastModified Time 07/24/2020 07/24/2020 Annual gynecological exam performed. Patient will come back in a year unless there are new symptoms. Not available 07/24/2020 10:55:52 Plan of Treatment Reminders Order Date Submit Date Provider Last Modified By Organization Details Last Modified Time Details Appointments SURG Total Lap Hyst 2024 07:30A Kristan OROZCO MD Not available Not available Not available Lab None recorded. Referral None recorded. Procedures None recorded. Surgeries None recorded. Imaging DEXA, axial skeleton + vertebral fracture assessmen t 2019 [facility], [address], [place], [address], 12/12/2020 12:09:46 Medication Orders Premarin 0.625 mg/gram vaginal cream 2019 020 [id number], [address] [place] [address], [id number], 12/26/2024 09:48:28 alclometa sone 0.05 % topical ointment 2019 020 [id number], [address] [place] [address], [id number], 12/26/2024 09:46:21 Patient TargetsNo targets recorded. Patient Instructions Encounter Date Encounter Id Patient Instructions Last Modified By Organization Details Last Modified Time 07/24/2020 [id number] [email or web address] Not available 11:15:57 Reason for Referral None Reported. Problems Name Problem SNOMED Code Status Onset Date Resolution Date Notes Provider Name and Address Organization Details Recorded Time Adult health examinati on Active 2012 Routine general medical examinatio n at a health care facility;P ractice ID: 0001 Not Available [facility] 0 21:52:50 Specializ ed medical examinati on Active 2012 Routine gynecologi lakeisha examinatio n;Practice ID: 0001 Not Available [facility] 0 21:52:50 Screening for malignant neoplasm of cervix Active 2012 Pap Smear;Prac gavin ID: 0001 Not Available [facility] 0 21:52:50 Screening for malignant neoplasm of rectum Active 2012 Screening for malignant neoplasms of the rectum;Pra ctice ID: 0001 Not Available [facility] 0 21:52:50 Vaginitis and vulvovagi nitis Active 2012 Vaginitis and vulvovagin itis, unspecifie d;Practice ID: 0001 Not Available [facility] 0 21:52:50 Atrophic vaginitis 89346156 Active 2013 Vaginitis Atrophic Perimenopa usal;Pract ice ID: 0001 Not Available [facility] 0 21:52:[address] Concept Active 2015 Encntr for general adult medical exam w/o abnormal findings;P ractice ID: 0001 Not Available [facility] 0 21:52:[address] Concept Active 2015 Encntr for policy advisor exam (general) (routine) w abnormal findings;P ractice ID: 0001 [facility] Available [facility] Concept Active 2015 Encntr for policy advisor exam (general) (routine) w/o abn findings;P ractice ID: 0001 Not Available [facility] 0 21:52:50 Abdominal bloating 156467111 Active 2017 Abdominal distension (gaseous); Recorded Elsewhere: No Locatio n: [facility] rce: EHR Chroni c: N Practice ID: 0001 Billa ble Time: 08:45:00 AM Not Available [facility] 0 21:52:51 Microscop ic hematuria 661130631 Active 2011 MICROSCOPI C HEMATURIA; Recorded Elsewhere: No Locatio n: [facility] rce: EHR Chroni c: N Practice ID: 0001 Billa ble Time: 08:45:00 AM Not Available [facility] 0 21:52:51 Michael hematuria 610419080 Active 2012 GROSS HEMATURIA; Recorded Elsewhere: No Locatio n: [facility] rce: EHR Chroni c: N Practice ID: 0001 Billa ble Time: 11:15:00 AM Not Available [facility] 0 21:52:52 Leukocyto sis 375199177 Active 2012 LEUKOCYTOS IS NOS;Record ed Elsewhere: No Locatio n: [facility] rce: EHR Chroni c: N Practice ID: 0001 Billa ble Time: 11:15:00 AM Not Available [facility] 0 21:52:52 Problem Notes None recorded. Procedures Surgical History Date Name Laterality Status Provider Name and Address Organization Details Recorded Time 07/09/20 24 Date of Last Mammogram completed Judy [facility] 12/26/2024 09:49:47 09/09/19 23 Date of Last Colonoscopy completed Judy [facility] 12/26/2024 09:50:34 12/20/19 19 Date of Last Pap Smear completed Judy Schwab [facility] 12/26/2024 10:00:30 08/09/19 19 arthroscopy of knee completed Judy Schwab [facility] 12/26/2024 09:56:34 09/17/19 18 Cholecystectomy completed Layla Nino [facility] 07/24/2020 10:56:35 01/01/19 80 Dilation and Curettage completed Judy Stallingser [facility] 12/26/2024 09:55:33 [facility] 09:55:49 Imaging Results None recorded. Procedure Notes None recorded. Medical Equipment None Reported. Allergies Allergen ID Allergen Name Allergen Category Reaction Reaction Severity Criticality Documentation Date Start Date Code Code System Note Provider Name and Address Organization Details Recorded Time 65454 Iodine and/or iodine compound (substanc e) Not available Not available Not available Not available 07/26/2020 79628 6004 SNOMED Comme nt: [facility]at [facility]; Not Available [facility] 0 14:20:48 2988 shrimp allergeni c extract food Not available Not available Not available 07/24/2020 93531 2 RxNorm Layla jackson [facility] 0 10:57:10 Medications Name Sig Start Date Stop Date Status Note LastModified by Organization Details LastModified Time celecoxib 200 mg capsule TAKE 1 CAPSULE BY MOUTH EVERY DAY 12/26 completed Not Available Not Available Not Available Prometriu m 200 mg capsule take 1 capsule by oral route every day for 10 days. If bleeding occurs, pt. is to contact office. If no bleeding , pt. will repeat in 6-8 mos 08/28 completed Prescrib ed Elsewher e: No [facility] odify By: austyn morris DateTime : 08/17/19 19 05:18:19 PM Not Available Not Available Not Available amoxicill in 500 mg capsule take 1 capsule (500MG) by oral route 3 times every day for 10 days 09/04 completed Prescrib ed Elsewher e: No Locat ion: Fernando torres [facility] odify By: marianna Padilla er DateTime : 08/26/19 13 02:37:38 PM Not Available Not Available Not Available vitamin E 670 mg (1,000 unit) capsule 06/02 completed Prescrib ed Elsewher e: Yes Loca tion: Fernando torres [facility] odify By: mikal chambers DateTime : 05/30/20 11 03:36:51 PM Not Available Not Available Not Available Cholestyr amine 4 g oral powder Take 1 scoop every day by oral route. 12/26 completed Not Available Not Available Not Available meloxicam 15 mg tablet take 1 tablet (15MG) by oral route every day 06/21 completed Prescrib ed Elsewher e: Yes Loca tion: Fernando torres [facility] odify By: andrés morris DateTime : 06/13/20 10:30:00 AM Not Available Not Available Not Available alclometa sone 0.05 % topical cream apply by topical route every day a thin layer to the affected area(s) 12/26 completed Prescrib ed Elsewher e: No Locat ion: Fernando torres [facility] odify By: melvihappel l Sol morris DateTime : 12/22/19 04:04:29 PM Not Available Not Available Not Available clobetaso l 0.05 % topical cream apply by topical route every day a thin layer to the affected area(s) 09/03 completed Prescrib ed Elsewher e: No Locat ion: Fernando torres [facility] odify By: dayna chambers DateTime : 09/06/19 10:59:57 AM Not Available Not Available Not Available Zithromax Z-Mario 250 mg tablet take 2 tablet (500MG) by oral route every day for 1 day then 1 tablet (250 mg) by oral route once daily for 4 days 08/29 completed Prescrib ed Elsewher e: No Locat ion: Fernando torres [facility] odify By: cmedical Encount er DateTime : 08/25/19 02:55:32 PM Not Available Not Available Not Available tramadol 50 mg tablet TAKE 1 TABLET BY MOUTH EVERY 6 HOURS NEEDED FOR PAIN 12/26 completed Not Available Not Available Not Available ketorolac 0.5 % eye drops PLACE 1 DROP INTO SURGICAL EYE 3 TIMES DAILY STARTING 2 DAYS BEFORE AND CONTINUE 2 WEEKS AFTER 12/26 completed Not Available Not Available Not Available Metrogel Vaginal 0.75 % (37.5 mg/5 gram) insert 1 applicat orful (37.5MG) by vaginal route every day at bedtime 06/13 completed Prescrib ed Elsewher e: No Locat ion: Fernando torres [facility] odify By: andrés morris DateTime : 08/25/19 13 02:55:32 PM Not Available Not Available Not Available famotidin e 20 mg tablet TAKE 1 TABLET BY MOUTH 2 TIMES DAILY NEEDED FOR HEARTBUR N. active Not Available Not Available No t Available amitripty line 25 mg tablet TAKE 1 TABLET BY MOUTH NIGHTLY AT BEDTIME. active Not Available Not Available No t Available prednisol one acetate 1 % eye drops,kelechi pension INSERT 1 DROP 3X PER DAY STARTING AFTER SURGERY, CONTINUE FOR 3 WEEKS 12/26 completed Not Available Not Available Not Available lorazepam 0.5 mg tablet TAKE 1 TABLET BY MOUTH TWICE A DAY NEEDED FOR ANXIETY 12/26 completed Not Available Not Available Not Available ranitidin e 75 mg tablet take 1 tablet by oral route 2 times every day with glass of water 12/26 completed Prescrib ed Elsewher e: Yes Loca tion: [facility] odify By: [email or web address] chambers DateTime : 12/20/19 19 01:00:00 PM Not Available Not Available Not Available ciproflox acin 0.3 % eye drops INSTILL 1 DROP 3 TIMES PER DAY STARTING 2 DAYS PRIOR TO SURGERY, CONTINUE FOR 1 WEEK AFTER SURGERY 12/26 completed Not Available Not Available Not Available simvastat in 20 mg tablet TAKE 1 TABLET BY MOUTH EVERY DAY IN THE EVENING 12/26 completed Not Available Not Available Not Available lisinopri l 10 mg tablet TAKE 1 TABLET BY MOUTH EVERY DAY 12/26 completed Not Available Not Available Not Available losartan 25 mg tablet TAKE 1 TABLET (25 MG TOTAL) BY MOUTH DAILY. active Not Available Not Available No t Available magnesium 100 mg capsule 11/18 completed Prescrib ed Elsewher e: Yes Loca tion: [facility] odify By: lsloan Melissa ncounter DateTime : 08/22/19 13 11:15:00 AM Not Available Not Available Not Available hydrochlo rothiazid e 12.5 mg capsule take 2 capsule by oral route every day 06/21 completed Prescrib ed Elsewher e: Yes Loca tion: Fernando torres [facility] odify By: andrés morris DateTime : 06/13/20 13 10:30:00 AM Not Available Not Available Not Available Glucosami ne 500 mg tablet 11/18 completed Prescrib ed Elsewher e: Yes Loca tion: Fernando torres [facility] odify By: dayna chambers DateTime : 05/30/20 11 03:36:51 PM Not Available Not Available Not Available Prevalite 4 gram powder for suspensio n in a packet TAKE 1 PACKET BY MOUTH 2 TIMES DAILY WITH MEALS 12/26 completed Not Available Not Available Not Available docusate sodium 100 mg capsule TAKE 1 CAPSULE BY MOUTH TWICE A DAY NEEDED FOR CONSTIPA TION 12/26 completed Not Available Not Available Not Available omeprazol e 20 mg capsule,d elayed release TAKE 1 CAPSULE BY MOUTH EVERY DAY 12/26 completed Not Available Not Available Not Available aspirin 81 mg chewable tablet CHEW AND SWALLOW 1 TABLET BY MOUTH DAILY 12/26 completed Not Available Not Available Not Available Provera 10 mg tablet take 1 tablet by oral route every day for 10 days and repeat every 3 months 11/18 completed Prescrib ed Elsewher e: No Locat ion: Fernando [facility] odify By: dayna chambers DateTime : 07/05/20 17 03:14:11 PM Not Available Not Available Not Available metoprolo l succinate ER 25 mg tablet,ex tended release 24 hr TAKE 1 TABLET (25 MG TOTAL) BY MOUTH DAILY. active Not Available Not Available No t Available ergocalci ferol (vitamin D2) 1,250 mcg (50,000 unit) capsule TAKE 1 CAPSULE BY MOUTH WEEKLY active Not Available Not Available No t Available alclometa sone 0.05 % topical ointment APPLY A THIN LAYER TO THE AFFECTED AREA(S) BY TOPICAL ROUTE 2 TIMES PER DAY as needed. Use sparingl y 12/26 completed Not Available Not Available Not Available estradiol 0.01% (0.1 mg/gram) vaginal cream INSERT (1G) BY VAGINAL ROUTE EVERY WEEK 12/26 completed Not Available Not Available Not Available Zocor 5 mg tablet take 1 tablet by oral route every day in the evening 08/22 completed Prescrib ed Elsewher e: Yes Loca tion: Fernando torres [facility] odify By: andrés morris DateTime : 05/30/20 03:36:51 PM Not Available Not Available Not Available ondansetr on 4 mg disintegr ating tablet DISSOLVE 1 TABLET ON THE TONGUE EVERY 6 HOURS NEEDED FOR NAUSEA/V OMITING 12/26 completed Not Available Not Available Not Available glucosami ne-chondr oitin 500 mg-400 mg tablet 12/26 completed Prescrib ed Elsewher e: Yes Loca tion: Fernando torres [facility] odify By: finesse Torres ncounter DateTime : 12/20/19 01:00:00 PM Not Available Not Available Not Available Tums 200 mg (as calcium carbonate 500 mg) chewable tablet 12/26 completed Prescrib ed Elsewher e: Yes Loca tion: Fernando torres [facility] odify By: finesse Torres ncounter DateTime : 12/20/19 01:00:00 PM Not Available Not Available Not Available Calcium Citrate + D 315 mg-5 mcg (200 unit) tablet active Not Available Not Available Not Available Bactrim DS 800 mg-160 mg tablet take 1 tablet by oral route every 12 hours 06/13 completed Prescrib ed Elsewher e: No Locat ion: Fernando [facility] odify By: andrés morris DateTime : 09/21/19 09:38:30 AM Not Available Not Available Not Available Vitamin D3 25 mcg (1,000 unit) tablet 12/26 completed Prescrib ed Elsewher e: Yes Loca tion: Fernando [facility] odify By: finesse Torres ncounter DateTime : 12/20/19 01:00:00 PM Not Available Not Available Not Available Premarin 0.625 mg/gram vaginal cream Insert 0.5 g every 2 weeks by vaginal route for 30 days. 12/26 completed Not Available Not Available Not Available cholestyr amine (with sugar) 4 gram oral powder TAKE 1 SCOOPFUL BY MOUTH 2 TIMES DAILY WITH MEALS. 12/26 completed Not Available Not Available Not Available melatonin 1 mg tablet 2 tablets every 24 hours by oral route. active Not Available Not Available No t Available melatonin 1 mg/4 mL oral drops 11/18 completed Prescrib ed Elsewher e: Yes Loca tion: Fernando torres [facility] odify By: dayna chambers DateTime : 08/22/19 13 11:15:00 AM Not Available Not Available Not Available Azo 95 mg tablet 06/21 completed Prescrib ed Elsewher e: Yes [facility] By: andrés morris DateTime : 06/13/20 13 10:30:00 AM Not Available Not Available Not Available nitrofura ntoin monohydra te/macroc rystals 100 mg capsule TAKE 1 CAPSULE ORALLY EVERY 12 HOURS FOR 5 DAYS MUST ADMINIST ER WITH A MEAL/MARIA ESTHER D 12/26 completed Not Available Not Available Not Available Infuvite Adult 3300 unit-150 mcg/10 mL intraveno us solution 11/18 completed Prescrib ed Elsewher e: Yes Loca tion: Lee melissa [facility] odify By: dayna chambers DateTime : 05/30/20 11 03:36:51 PM Not Available Not Available Not Available Vitamin D3 10 mcg (400 unit) capsule 08/22 completed Prescrib ed Elsewher e: Yes [facility] odify By: andrés morris DateTime : 06/02/20 11 09:30:00 AM Not Available Not Available Not Available diclofena c 1 % topical gel APPLY 4 GM TO SINGLE KNEE, ANKLE, OR FOOT (INCLUDI NG SOLE/TOE S/TOP OF FOOT) 4 TIMES A DAY 12/26 completed Not Available Not Available Not Available Fish Oil 360 mg-1,200 mg capsule 11/18 completed Prescrib ed Elsewher e: Yes [facility] By: dayna chambers DateTime : 06/02/20 11 09:30:00 AM Not Available Not Available Not Available Citracal Plus Bone Density Builder 300 mg-200 unit-13.5 mg tablet 11/18 completed Prescrib ed Elsewher e: Yes Loca tion: [facility] odify By: dayna chambers DateTime : 05/30/20 11 03:36:51 PM Not Available Not Available Not Available Zolpimist 5 mg/spray (0.1 mL) oral spray spray 2 spray by translin gual route every day into the mouth, over the tongue at bedtime 12/19 completed Prescrib ed Elsewher e: Yes Loca tion: [facility] odify By: finesse chambers DateTime : 06/02/20 11 09:30:00 AM Not Available Not Available Not Available Vitamin D3 50 mcg (2,000 unit) capsule Take 1 capsule every day by oral route. 12/26 completed Not Available Not Available Not Available turmeric root extract 12/26 completed Not Available Not Available Not Available Shingrix (PF) 50 mcg/0.5 mL intramusc ular suspensio n, kit TO BE ADMINIST ERED BY PHARMACI ST FOR IMMUNIZA TION 12/26 completed Not Available Not Available Not Available Fluzone High-Dose Quad (PF) 240 mcg/0.7 mL IM syringe PHARMACI ST ADMINIST ERED IMMUNIZA TION ADMINIST ERED AT TIME OF DISPENSI NG 12/26 completed Not Available Not Available Not Available Vitals Date Recorded Body height Body mass index (BMI) Body weight Systolic And Diastolic Provider Name and Address Organization Details Last Updated DateTime 12/26/2024 161.29 cm 29.8 kg/m2 03832.3 g 138/75 mm[Hg] Judy Schwab [facility] 12/26/2024 09:46:02 Date Recorded Body height Body mass index (BMI) Body weight Systolic And Diastolic Provider Name and Address Organization Details Last Updated DateTime 07/24/2020 160.02 cm 31.4 kg/m2 87411.85 g 125/74 mm[Hg] Layla Nino [facility] 07/24/2020 10:56:17 Social History Question Answer Notes LastModified by Organizat ion Details LastModified Time Tobacco Smoking Status Never Smoker Judy Schwab [facility], [facility] 12/26/2024 09:53:27 Do You Have An Advance Directive? Yes Information n ot available 07/24/2020 Are You Blind Or Do You Have Difficulty Seeing? No Information n ot available 12/26/2024 What Is Your Level Of Caffeine Consumption? Moderate Information not available 12/26/2024 In The 14 Days Before Symptom Onset, Have You Had Close Contact With A Laboratory-confirm ed COVID-19 While That Case Was Ill? No Information n ot available 12/26/2024 In The 14 Days Before Symptom Onset, Have You Had Close Contact With A Person Who Is Under Investigation For COVID-19 While That Person Was Ill? No Information not available 12/26/2024 Have You Been To An Area Known To Be High Risk For COVID-19? No Information not available 12/26/2024 Are You Deaf Or Do You Have Serious Difficulty Hearing? No Information not available 12/26/2024 What Type Of Diet Are You Following? REGULAR Information n ot available 12/26/2024 What Is The Highest Grade Or Level Of School You Have Completed Or The Highest Degree You Have Received? [id number] Information not available 12/26/2024 Are There Any Guns Present In Your Home? No Information not available 12/26/2024 Do You Use Your Seat Belt Or Car Seat Routinely? Yes Information not available 12/26/2024 Are You Sexually Active? No Information not available 12/26/2024 Do You Have Smoke And Carbon Monoxide Detectors In Your Home? Yes Information not available 12/26/2024 Do You Use Sunscreen Routinely? Yes Information not available 12/26/2024 Do You Have Difficulty Walking Or Climbing Stairs? No Information not available 12/26/2024 Sex: Unknown Functional Status Question Answer Note LastModified by Organizat ion Details LastModified Time Do you use any illicit or recreational drugs? No Information not available 12/26/2024 What is your level of alcohol consumption? Occasional Information not available 12/26/2024 Are you currently employed? No Information not available 12/26/2024 Are you able to walk? YESWOREST Information not available 12/26/2024 Are you able to care for yourself? Yes Information n ot available 12/26/2024 Do you have difficulty dressing or bathing? No Information not available 12/26/2024 What is your exercise level? Moderate Information not available 12/26/2024 Mental Status Question Answer Note LastModified by Organization D etails LastModified Time Do you feel stressed (tense, restless, nervous, or anxious, or unable to sleep at night)? [id number] Information not available 12/26/2024 Family History Relationship Description Onset Age of this Age Resolved Age Notes LastModified by Organization Details LastModified Time Maternal Grandmother Heart disease [email or web address] Not available 2019 10:56:48 Maternal Grandmother Hypertensive disorder [email or web address] Not available 2019 10:56:48 Mother Myocardial infarction [email or web address] Not available 07/24 10:56:48 Mother Hypercholest erolemia [email or web address] Not available 2019 10:56:48 Mother Hypertensive disorder [email or web address] Not available 2019 10:56:48 Mother Diabetes mellitus [email or web address] Not available 2019 10:56:48 Mother Heart disease [email or web address] Not available 2019 10:56:48 Maternal Grandfather Diabetes mellitus [email or web address] Not available 2019 10:56:48 Maternal Grandfather Hypercholest erolemia [email or web address] Not available 2019 10:56:48 Brother Hypercholest erolemia [email or web address] Not available 2019 10:56:48 Brother Heart disease [email or web address] Not available 2019 10:56:48 Notes:Brother: Hypertension, Hyperlipidemia Father: Thyroid disease, Hypertension, arrythmia Maternal grandfather: Hypertension, Diabetes mellitus Maternal grandmother: Hypertension Mother: Hyperlipidemia, gleoblastoma, Hypertension, brain cancer, Diabetes mellitus Paternal grandfather: Hyperlipidemia Medical History Condition Response Acid Reflux (GERD) Y Arthritis Y Hypertension Y GI Problems Y High Cholesterol Y Gynecological History Statement/Question Response Abnormal Pap N Date of Last Mammogram 07/09/2024 Was last menstrual period normal Y STIs/STDs N HPV Vaccine N Current Control Method Menopause If Post Menopausal, Age at Menopause 51 Are cycles usually normal Y Date of Last Colonoscopy 09/09/2022 Sexually Active? N Menses Monthly N Date of DEXA bone scan Age of first menstrual cycle 10 Date of Last Pap Smear 12/19/2018 Sexual Problems? N LMP Unknown Obstetrics History GPAL:G 6 P 0 0 2 4 Type Value Spontaneous 2 Living 4 Total 6 Past Encounters Encounter ID Performer Location Encounter Start Date Encounter Closed Date Diagnosis/Indication Diagnosis SNOMED-CT Code Diagnosis ICD10 Code Diagnosis Note [id number] Sofia Peguero , [facility] [address] [address] 07/24/2020 10:45:30 07/24/2020 11:17:12 Gynecologic examination 09533171 Z01.419 Take Calcium with Vitamin D 12-1500mg daily. Do monthly self breast exams. It is advised to get annual flu shot in the fall and she could obtain at [facility] or [facility] care clinic. If you haven't received the Tdap vaccine in the last 10 years you should obtain one as well. Have mammogram yearly, bone density every 2-3 years and colonoscop y every 5-10 years depending on findings and history. Engage in daily exercise of low impact aerobic exercise 45-60 minutes 4-5 times weekly. Avoid tobacco and illicit drugs as well as using moderation with alcohol intake less than 1-2 8 oz beverages daily. This lifestyle behavior pattern will lead to less health conditions and longer life span. If BMI greater than 25 weight watchers or dietary consult advised. Questions have been answered. Patient appears to understand instructio ns, but if you have any further questions call or respond to this email Normal pap/hpv hx Monogamous x 50yrs Not current SA spouse has dementia [place] [id number] Dexa wnl per pt 01/2020 PCP: dr. jhonathan Hurt UTD colonoscop y USPSTF recommends against screening for cervical cancer in women older than 65yo who have had adequate prior screening & are not otherwise at high risk for cervical cancer. Pt verbalized understand ing and agreeable. RTO for med check yearly. Postmenopa usal osteopenia [id number] M85.80 Atrophic vaginitis 24310 000 N95.2 [id number] Alvarado Orozco MD [facility] [address] [address] 12/26/2024 09:08:40 12/26/2024 10:29:01 Prolapse of female genital organs [id number] N81.9 this patient is a 74-year-ol d female who reports a bulge at the introitus of her vagina. She also reports some urinary symptoms. She has trouble emptying her bladder. She has a low force of stream and makes frequent trips to the bathroom during the day. She denies any trouble with bowel movements. She was examined. There is a grade 3 cystocele. There is a grade 1 rectocele and little vaginal apical descent. She will be referred to Urogynecol bertha. This may require sacral colpopexy. We will likely cooperate with Dr. Winston on that surgery. Health Concerns Section Related Observation LastModified by Organization Detai ls LastModified Time None Recorded Concern Status LastModified by Organization Details LastModified Time None Recorded Advance Directives Directive Y: Payers Insurance Date Sequence Insurance Name Policy Number Policy Malin Covered Member ID Malin Member ID Guarantor Name 12/26/2024 1 [place] Cornelia Busby [id number] 12/26/2024 2 COUNTRY [employer]AN[employer] (MEDICARE SUPPLEMENT) Cornelia Busby [id number] 12/26/2024 1 [place] Cornelia Busby [id number] Notes Date Note Type Note Provider Name and Address Organization Details Recorded Time 07/24/2020 text/html Annual GYNReport ed bypatient.History: no gynecologic complaints Menstrual cycle:postmenopaus al Urinary symptoms:No hematuria; No incontinence Vulva:No genital lesion Vagina:Normal vaginal discharge Breast:No breast pain; No breast lump; No nipple discharge Current Contraception:Castro gamous relationship Sexual complaints:No sexual complaints; No pain during intercourse; Normal libido Menopausal Symptoms:No menopausal symptoms; Normal vaginal lubrication Psychological symptoms:No depression; No anxiety; No PMDD Preventive measures:Encourage self breast examination; Encourage regular exercise; Encourage no tobacco use; Encourage regular mammograms starting age 40; Mammogram performed within the past year; Up to date on colonoscopy screening Sofia Peguero [facility] [address], [place], [address], [facility] 07/24/2020 11:17:10 12/26/2024 text/html this patient is a 74-year-old female who reports a bulge at the introitus of her vagina. She also reports some urinary symptoms. She has trouble emptying her bladder. She has a low force of stream and makes frequent trips to the bathroom during the day. She denies any trouble with bowel movements. She was examined. There is a grade 3 cystocele. There is a grade 1 rectocele and little vaginal apical descent. She will be referred to Urogynecology. This may require sacral colpopexy. We will likely cooperate with Dr. Winston on that surgery. Alvarado Orozco MD [address], [place], [address], [facility] 12/26/2024 10:26:01 OBGyn Episode Ob Episode Information Episode Created Date Number of Fetuses Patient Bloodtype Patient rh Status Prepregnancy Weight lbs Domestic Partner Domestic Partner Phone Father Name Cloth Calender Status 12/27/19 25 1 CLOSED Fetus Data First Name Last Name Admitted to NICU Weight (g) Sex Living Outcome Pediatric Complications Fetus ID Race Codes Race Delivery Type Full Term [id number] Vaginal Delivery Romie Calculation Initial Romie Date Initial Exam Date Initial Exam Provider Initial Ultrasound Date Last Menstrual Period Date Ultra Sound Weeks Gestation 0 Eighteen To Twenty Week Romie Update Ultra Sound Date Fundal Height At Umbil Quickening Date Ultra Sound Latest Weeks Gestation Final Romie Confirmed By Final Romie Confirmed Date Final Romie Date Ultra Sound Latest Days Gestation 0 0 Menstrual History Last Menstrual Date Menses Monthly On Bcp Conception Prior Menses Frequency Hcg Plus Date Menarche Onset Age Delivery Information Delivery Date Delivery Type Labor Anesthesia Weeks Gestation Incision Type Labor Labor Length Hrs Delivered By Post Complications Tubal Sterilization Discharge Date Comments 2 Discharge Information Feeding Method Contraceptive Method Maternal HG B and HCT Levels Ob Episode Information Episode Created Date Number of Fetuses Patient Bloodtype Patient rh Status Prepregnancy Weight lbs Domestic Partner Domestic Partner Phone Father Name Cloth Calender Status 12/27/19 1 CLOSED Fetus Data First Name Last Name Admitted to NICU Weight (g) Sex Living Outcome Pediatric Complications Fetus ID Race Codes Race Delivery Type Full Term [id number] Vaginal Delivery Romie Calculation Initial Romie Date Initial Exam Date Initial Exam Provider Initial Ultrasound Date Last Menstrual Period Date Ultra Sound Weeks Gestation 0 Eighteen To Twenty Week Romie Update Ultra Sound Date Fundal Height At Umbil Quickening Date Ultra Sound Latest Weeks Gestation Final Romie Confirmed By Final Romie Confirmed Date Final Romie Date Ultra Sound Latest Days Gestation 0 0 Menstrual History Last Menstrual Date Menses Monthly On Bcp Conception Prior Menses Frequency Hcg Plus Date Menarche Onset Age Delivery Information Delivery Date Delivery Type Labor Anesthesia Weeks Gestation Incision Type Labor Labor Length Hrs Delivered By Post Complications Tubal Sterilization Discharge Date Comments 2 Discharge Information Feeding Method Contraceptive Method Maternal HG B and HCT Levels Ob Episode Information Episode Created Date Number of Fetuses Patient Bloodtype Patient rh Status Prepregnancy Weight lbs Domestic Partner Domestic Partner Phone Father Name Cloth Calender Status 12/27/19 1 CLOSED Fetus Data First Name Last Name Admitted to NICU Weight (g) Sex Living Outcome Pediatric Complications Fetus ID Race Codes Race Delivery Type Full Term [id number] Vaginal Delivery Romie Calculation Initial Romie Date Initial Exam Date Initial Exam Provider Initial Ultrasound Date Last Menstrual Period Date Ultra Sound Weeks Gestation 0 Eighteen To Twenty Week Romie Update Ultra Sound Date Fundal Height At Umbil Quickening Date Ultra Sound Latest Weeks Gestation Final Romie Confirmed By Final Romie Confirmed Date Final Romie Date Ultra Sound Latest Days Gestation 0 0 Menstrual History Last Menstrual Date Menses Monthly On Bcp Conception Prior Menses Frequency Hcg Plus Date Menarche Onset Age Delivery Information Delivery Date Delivery Type Labor Anesthesia Weeks Gestation Incision Type Labor Labor Length Hrs Delivered By Post Complications Tubal Sterilization Discharge Date Comments 5 Discharge Information Feeding Method Contraceptive Method Maternal HG B and HCT Levels Ob Episode Information Episode Created Date Number of Fetuses Patient Bloodtype Patient rh Status Prepregnancy Weight lbs Domestic Partner Domestic Partner Phone Father Name Cloth Calender Status 12/27/19 1 CLOSED Fetus Data First Name Last Name Admitted to NICU Weight (g) Sex Living Outcome Pediatric Complications Fetus ID Race Codes Race Delivery Type , [place] [id number] Romie Calculation Initial Romie Date Initial Exam Date Initial Exam Provider Initial Ultrasound Date Last Menstrual Period Date Ultra Sound Weeks Gestation 0 Eighteen To Twenty Week Romie Update Ultra Sound Date Fundal Height At Umbil Quickening Date Ultra Sound Latest Weeks Gestation Final Romie Confirmed By Final Romie Confirmed Date Final Romie Date Ultra Sound Latest Days Gestation 0 0 Menstrual History Last Menstrual Date Menses Monthly On Bcp Conception Prior Menses Frequency Hcg Plus Date Menarche Onset Age Delivery Information Delivery Date Delivery Type Labor Anesthesia Weeks Gestation Incision Type Labor Labor Length Hrs Delivered By Post Complications Tubal Sterilization Discharge Date Comments 0 Discharge Information Feeding Method Contraceptive Method Maternal HG B and HCT Levels Ob Episode Information Episode Created Date Number of Fetuses Patient Bloodtype Patient rh Status Prepregnancy Weight lbs Domestic Partner Domestic Partner Phone Father Name Cloth Calender Status 12/27/19 25 1 CLOSED Fetus Data First Name Last Name Admitted to NICU Weight (g) Sex Living Outcome Pediatric Complications Fetus ID Race Codes Race Delivery Type Full Term [id number] Vaginal Delivery Romie Calculation Initial Romie Date Initial Exam Date Initial Exam Provider Initial Ultrasound Date Last Menstrual Period Date Ultra Sound Weeks Gestation 0 Eighteen To Twenty Week Romie Update Ultra Sound Date Fundal Height At Umbil Quickening Date Ultra Sound Latest Weeks Gestation Final Romie Confirmed By Final Romie Confirmed Date Final Romie Date Ultra Sound Latest Days Gestation 0 0 Menstrual History Last Menstrual Date Menses Monthly On Bcp Conception Prior Menses Frequency Hcg Plus Date Menarche Onset Age Delivery Information Delivery Date Delivery Type Labor Anesthesia Weeks Gestation Incision Type Labor Labor Length Hrs Delivered By Post Complications Tubal Sterilization Discharge Date Comments 4 Discharge Information Feeding Method Contraceptive Method Maternal HG B and HCT Levels Ob Episode Information Episode Created Date Number of Fetuses Patient Bloodtype Patient rh Status Prepregnancy Weight lbs Domestic Partner Domestic Partner Phone Father Name Cloth Calender Status 12/27/19 25 1 CLOSED Fetus Data First Name Last Name Admitted to NICU Weight (g) Sex Living Outcome Pediatric Complications Fetus ID Race Codes Race Delivery Type , [place] [id number] Romie Calculation Initial Romie Date Initial Exam Date Initial Exam Provider Initial Ultrasound Date Last Menstrual Period Date Ultra Sound Weeks Gestation 0 Eighteen To Twenty Week Romie Update Ultra Sound Date Fundal Height At Umbil Quickening Date Ultra Sound Latest Weeks Gestation Final Romie Confirmed By Final Romie Confirmed Date Final Romie Date Ultra Sound Latest Days Gestation 0 0 Menstrual History Last Menstrual Date Menses Monthly On Bcp Conception Prior Menses Frequency Hcg Plus Date Menarche Onset Age Delivery Information Delivery Date Delivery Type Labor Anesthesia Weeks Gestation Incision Type Labor Labor Length Hrs Delivered By Post Complications Tubal Sterilization Discharge Date Comments 0 Discharge Information Feeding Method Contraceptive Method Maternal HG B and HCT Levels
--- OUTSIDE RECORDS SUMMARY | 2025-02-13 08:30 | XMS_ITS | Encounter Summary ---
Author Organization [facility] Address [facility] [place] [address] Care Team Providers Care Deli Associate Name Role Phone Meera Hurt MD Primary Care Provider Felipe Day MD Unavailable [phone] Encounter Details Date Type Department Care Team (Late st Contact Info) Description 10/11/2023 [email or web address] Message Enc [facility] Multispecialty Care - [facility] [address], [address] [place] [id number] Oj Bills MD [address] [facility] [address] [place], [place] [id number] Medication Social History Tobacco Use Types Packs/Day Years [...] as of this encounter Functional Status * Over the past 2 weeks, how often have you been bothered by any of the following problems? Question Answer Date of Assessment Author Status Little interest or pleasure in doing things Not at all 10/13/2023 8:47 AM Emi Lala MA Active Feeling down, depressed, or hopeless Not at all 10/13/2023 8:47 AM Mendy Lala MA Active Patient Health Questionnaire-2 Score 0 10/13/2023 8:47 AM Bartolo Lala MA Active documented as of this encounter Plan of Treatment Upcoming Encounters Date Type Department Care Team (Late st Contact Info) Description 03/09/2025 11:45 AM CDT Office Visit [facility] [address] [place] [id number] Albaro Drew MD [address] [address] documented as of this encounter Visit Diagnoses Not on filedocumented in this encounter Care Teams Deli Associate Relationship Specialty Start Date End Date Meera Hurt MD PCP - General FAMILY PRACTICE 07/12/18 Felipe Day MD GASTROENTEROLOGY 08/16/18 documented as of this encounter
--- OUTSIDE RECORDS SUMMARY | 2025-02-13 08:30 | XMS_ITS | Clinical Summary ---
Author Organization [facility] Address [address] [place] [address] Care Team Providers Care Educational Manager Name Role Phone Meera Hurt MD Primary Care Provider [phone] Source Comments [facility],non-owned Affiliates and Associated Physician Practices is amultiple site organization consisting of ambulatory clinics and hospital sitesin [place], [place], [place] and [place]. This disclosure is being madepursuant to the Care Everywhere program and may not contain all information available regarding this patient. Last updated 18.[facility] Allergies Active Allergy Reactions Criticality Noted Date Comments Lisinopril Cough 07/24/2022 Shellfish Allergy Nausea and/or Vomiting 2019 Hydrocodone-Acetaminoph en Other 08/15/2019 Couldn't sleep Medications * Be aware that medications may not be up to date on this document. Alwaysverify current medications with the patient. simvastatin (ZOCOR) 20 MG tablet Take 1 tablet by mouth at bedtime 3 9 Active metoprolol succinate XL 24hr (TOPROL XL) 25 MG tablet Take 25 mg by mouth once daily 9 Active melatonin 1 MG tablet Take 1 mg by mouth at bedtime Active zolpidem (AMBIEN) 2.5 MG tablet Take 5 mg by mouth nightly as needed for Insomnia Active ondansetron, disintegrating, (ZOFRAN ODT) 4 MG tablet Take 1 tablet by mouth every 6 hours as needed for Nausea/Vomiting Allow tablet to dissolve on the tongue 10 tablet 0 Active diclofenac sodium (VOLTAREN) 1 % gel diclofenac 1 % topical gel APPLY 4 GM TO SINGLE KNEE, ANKLE, OR FOOT (INCLUDING SOLE/TOES/TOP OF FOOT) 4 TIMES A DAY Active vitamin D, ergocalciferol, (DRISDOL) 1.25 MG (01243 UT) capsule 1 Active famotidine (PEPCID) 20 MG tablet Take 20 mg by mouth once daily as needed 1 Active Influenza Vac High-Dose Quad (FLUZONE HIGH-DOSE QUADRIVALENT) 0.7 ML CLAUDY injection Fluzone High-Dose Quad (PF) 240 mcg/0.7 mL IM syringe PHARMACIST ADMINISTERED IMMUNIZATION ADMINISTERED AT TIME OF DISPENSING Active lisinopril (PRINIVIL; ZESTRIL) 10 MG tablet lisinopril 10 mg tablet TAKE 1 TABLET BY MOUTH EVERY DAY 1 Active LORazepam (ATIVAN) 0.5 MG tablet lorazepam 0.5 mg tablet TAKE 1 TABLET BY MOUTH TWICE A DAY NEEDED FOR ANXIETY Active zoster vaccine recombinant adjuvanted (SHINGRIX) 50 MCG/0.5ML SUSR injection Shingrix (PF) 50 mcg/0.5 mL intramuscular suspension, kit TO BE ADMINISTERED BY PHARMACIST FOR IMMUNIZATION Active celecoxib (CELEBREX) 200 MG capsuleIndicati ons:Left knee pain, unspecified chronicity Take 1 (one) capsule by mouth once daily 30 capsule 5 1 Active losartan (Cozaar) 25 MG tablet Take 1 (one) tablet by mouth once daily 2 Active Active Problems Problem Noted Date Diagnosed Date Trochanteric bursitis of left hip 07/21/2021 Primary osteoarthritis of left knee 07/21/2021 Essential (primary) hypertension 07/18/2021 Overview (07/21/2021): Last Assessment & Plan: Her blood pressure is well controlled according to her home readings, even though her blood pressure in the office today is elevated. Continue lisinopril 10 mg daily. Hyperlipidemia, mixed 07/18/2021 Overview (07/21/2021): Last Assessment & Plan: Her total cholesterol has been between 160 and 180 per her report. We can continue to monitor and pursue lifestyle changes. She is currently not on statin therapy. Palpitations 07/18/2021 Overview (07/21/2021): Last Assessment & Plan: Her palpitations are well controlled. Continue metoprolol succinate 25 mg daily. History of duodenal ulcer 04/01/2021 Overview (07/21/2021): Last Assessment & Plan: Therefore we will only do a short round of nonsteroidal anti-inflammatories Impingement syndrome of right shoulder Overview (07/21/2021): Last Assessment & Plan: Celebrex was giving relatively good relief until she forgot to take it for 3 days. She also stopped doing her exercises. Increased shoulder discomfort. Patient will get back on her Celebrex. Would like to avoid steroid injections. If pain increases consider steroid injection. Further evaluation with MRI if needed. Tear of meniscus of right knee 05/12/2019 Social History Tobacco Use Types Packs/Day Years Used Date Smoking Tobacco: Never Smokeless Tobacco: Never Alcohol Use Standard Drinks/Week Comments Yes 0 (1 standard drink = 0.6 oz pur e alcohol) rare Comments Unknown Sex and Gender Information Value Date Recorded Sex Assigned at Not on file Legal Sex Female 2:05 PM COMPRESSOR OPERATOR ADJUSTER Gender Identity Not on file Sexual Orientation Not on file Last Filed Vital Signs Vital Sign Reading Time Taken Comments Blood Pressure 149/81 08/15/2019 9:41 AM COMPRESSOR OPERATOR ADJUSTER Pulse 67 08/15/2019 9:41 AM COMPRESSOR OPERATOR ADJUSTER Temperature 36.3 C (97.4 F) 08/15/2019 9:41 AM COMPRESSOR OPERATOR ADJUSTER Respiratory Rate 18 08/15/2019 9:41 AM COMPRESSOR OPERATOR ADJUSTER Oxygen Saturation 98% 08/15/2019 9:41 AM COMPRESSOR OPERATOR ADJUSTER Inhaled Oxygen Concentration - - Weight 77.6 kg (171 lb) 08/15/2019 5:58 AM COMPRESSOR OPERATOR ADJUSTER Height 162.6 cm (5' 4) 08/15/2019 5:58 AM COMPRESSOR OPERATOR ADJUSTER Body Mass Index 29.35 08/15/2019 5:58 AM COMPRESSOR OPERATOR ADJUSTER Plan of Treatment Health Maintenance Due Date Last Done Comments BONE DENSITY TESTING 1950 MEDICARE AWV 12 MONTHS 1950 HEPATITIS C SCREENING 01/08/1966 DTAP/TDAP/TD VACCINES (1 - Tdap) 01/12/1967 PNEUMOCOCCAL VACCINE 50+ (1 of 1 - PCV) 01/12/1998 ZOSTER VACCINE (1 of 2) 01/12/1998 Respiratory Syncytial Virus (RSV) Vaccine Pt: or over 60 yrs (1 - 1-dose 75+ series) 01/12/2023 COVID-19 VACCINE (3 - 2023-2 5 season) 2024 10/03/2020, 09/05/2020 DEPRESSION SCREENING 08/09/2024 INFLUENZA VACCINE (Season Ended) 2025 05/26/2019 HEPATITIS B VACCINE Aged Out No longe r eligible based on patient's age to complete this topic HIB VACCINE Aged Out No longer eligi ble based on patient's age to complete this topic HPV VACCINE Aged Out No longer eligi ble based on patient's age to complete this topic MENINGOCOCCAL (Group B) VACCINE SHARED DECISION-MAKING Aged Out No longer eligible based on patient's age to complete this topic MENINGOCOCCAL GROUPS A/C/Y/W VACCINE Aged Out No longer eligible b ased on patient's age to complete this topic Insurance MEDICARE SUPPLEMENT PAYOR GENERIC MEDICARE MEDICARE Care Teams Educational Manager Relationship Specialty Start Date End Date Meera Hurt MD [address] [place] [address] PCP - General Family Medicine 05/09/19
--- OUTSIDE RECORDS SUMMARY | 2025-02-13 08:30 | XMS_ITS | Encounter Summary ---
Author Organization [facility] Address [facility] [place] [address] Care Team Providers Care Marketing Proposal Coordinator Name Role Phone Meera Hurt MD Primary Care Provider [phone] Felipe Day MD Unavailable [phone] Encounter Details Date Type Department Care Team (Late st Contact Info) Description 07/22/2021 Abstract [facility] [address] Jan Quintana MA Social History Tobacco Use [...] have Coronavirus / COVID-19? No / Unsure 07/17/2021 10:19 AM MANAGER SITE documented as of this encounter Plan of Treatment Upcoming Encounters Date Type Department Care Team (Late st Contact Info) Description 03/09/2025 11:45 AM CDT Office Visit [facility] [address] [place] [phone] Albaro Drew MD [facility]. [facility] [address] [place] [address] documented as of this encounter Procedures Procedure Name Priority Date/Time Associated Diagnosis Comments COMPREHENSIVE METABOLIC PANEL Routine 08/17/2023 LIPID PANEL Routine 08/17/2023 CBC, MANUAL DIFF Routine 08/17/2023 THYROID STIM HORMONE TSH Routine 08/17/2023 VITAMIN D, 25 OH Routine 08/17/2023 COMPREHENSIVE METABOLIC PANEL Routine 06/12/2022 LIPID PANEL Routine 06/12/2022 THYROID STIM HORMONE TSH Routine 06/12/2022 VITAMIN D, 25 OH Routine 06/12/2022 CBC (OUTSIDE LAB) Routine 05/23/2021 COMPREHENSIVE METABOLIC PANEL Routine 05/23/2021 documented in this encounter Results * VITAMIN D, 25 OH (08/17/2023) VITAMIN D 25 HYDROXY S/P/B 97 08/17/2023 us Default History Genericprovider LABORATORY Final Result * COMPREHENSIVE METABOLIC PANEL (08/17/2023) SODIUM S/P/B 138 GLUCOSE 107 mg/dL AST 15 BUN 10 CREATININE S/P/B 0.58 0.5 - 1.0 CALCIUM S/P/B 9.4 POTASSIUM S/P/B 3.8 CHLORIDE S/P/B 102 ALT 14 GFR ESTIMATE 94 us Default History Genericprovider LABORATORY Final Result * LIPID PANEL (08/17/2023) Pathologist [facility] CHOLESTEROL 166 TRIGLYCERIDES 157 HDL 48 LDL (CALCULATED) 93 NON HDL CHOLESTEROL 118 Default History Genericprovider LABORATORY Final Result * CBC, MANUAL DIFF (08/17/2023) [facility] WBC 5.2 HGB 13.5 HCT 40.2 PLT 248 Default History Genericprovider LABORATORY Final Result * THYROID STIM HORMONE TSH (08/17/2023) [facility] TSH 1.94 Default History Genericprovider LABORATORY Final Result * VITAMIN D, 25 OH (06/12/2022) [facility] VITAMIN D 25 HYDROXY S/P/B 70 06/12/2022 Default History Genericprovider LABORATORY Final Result * THYROID STIM HORMONE, TSH (06/12/2022) [facility] TSH 1.67 06/12/2022 Default History Genericprovider LABORATORY Final Result * (ABNORMAL) COMPREHENSIVE METABOLIC PANEL (06/12/2022) [facility] SODIUM S/P/B 136 POTASSIUM S/P/B 4.6 CO2 29 CHLORIDE S/P/B 100 GLUCOSE 91 mg/dL CALCIUM S/P/B 9.5 BUN 17 CREATININE S/P/B 0.69 0.5 - 1.0 EGFR NON-AFR. AMER. 91(A) <=90 ALKALINE PHOSPHATASE S/P/B 54 ALT 14 AST 14 BILIRUBIN TOTAL S/P/B 0.8 ALBUMIN S/P/B 4.3 3.5 - 5.0 TOTAL PROTEIN S/P/B 6.4 GLOBULIN 2.1 06/12/2022 us Default History Genericprovider LABORATORY Final Result * LIPID PANEL (06/12/2022) CHOLESTEROL 154 HDL 48 TRIGLYCERIDES 182 NON HDL CHOLESTEROL 106 LDL (CALCULATED) 78 06/12/2022 us Default History Genericprovider LABORATORY Edited Result - Final * CBC (OUTSIDE LAB) (05/23/2021) Pathologist [facility] WBC 5.5 HGB 13.4 HCT 40.1 PLT 222 05/23/2021 us Doc [facility] Abstract LAB-OUTSIDE/ABSTRACTED Final Result * (ABNORMAL) COMPREHENSIVE METABOLIC PANEL (05/23/2021) Pathologist [facility] SODIUM S/P/B 138 POTASSIUM S/P/B 4.1 CO2 28 CHLORIDE S/P/B 100 GLUCOSE 97 mg/dL CALCIUM S/P/B 9.3 BUN 14 CREATININE S/P/B 0.63 0.5 - 1.0 EGFR AFR. AMER. 103(A) <=90 EGFR NON-AFR. AMER. 89 <=90 ALKALINE PHOSPHATASE S/P/B 61 ALT 14 AST 16 BILIRUBIN TOTAL S/P/B 1.2 ALBUMIN S/P/B 4.4 3.5 - 5.0 TOTAL PROTEIN S/P/B 6.3 GLOBULIN 1.9 05/23/2021 us Doc [facility] LABORATORY Final Result documented in this encounter Visit Diagnoses Not on filedocumented in this encounter Care Teams Marketing Proposal Coordinator Relationship Specialty Start Date End Date Meera Hurt MD PCP - General FAMILY PRACTICE 07/12/18 Felipe Day MD GASTROENTEROLOGY 08/16/18 documented as of this encounter
== END 2025-02-13 08:29 | disposition home or self-care (01) ==
LOC: ANHIMG 08:28
PROVIDERS: PCP Family Medicine; Visit Provider Family Medicine
DX: Z12.31 Encounter for screening mammogram for malignant neoplasm of breast (principal); R92.8 Other abnormal and inconclusive findings on diagnostic imaging of breast
CPT/HCPCS: 77063; 77067

== ENCOUNTER 2025-03-06 12:51 | Outpatient (CLI) | payer MEDICARE, SELFPAY ==
--- NOTE | ~2025-03-06 | MM_ITS ---
EXAMINATION: MM diagnostic genesis LT w frank HISTORY: Follow-up left breast calcifications TECHNIQUE: Additional 3-D tomosynthesis images of the left breast were performed and synthetic 2-D im ages were generated. CAD analysis was submitted and interpreted. COMPARISON: Comparison to multiple prior studies sequentially, with oldest reviewed study dated Flavio rison to multiple prior studies sequentially, with oldest reviewed study dated 03/27/2020. . BREAST PARENCHYMAL COMPOSITION: Not dense: There are scattered areas of fibroglandular density. FINDINGS: There is a pleomorphic cluster of calcifications upper outer quadrant of the left breast, p osterior third. There are no suspicious masses or architectural distortion. IMPRESSION: 1. Clustered pleomorphic branching calcification upper outer quadrant of the left breast posteriorly. 2. Stereotactic left breast biopsy recommended. BI-RADS category 4, suspicious findings. Reviewed, dictated and finalized at location B. IMPRESSION: 1. Clustered pleomorphic branching calcification upper outer quadrant of the le ft breast posteriorly. 2. Stereotactic left breast biopsy recommended. BI-RADS category 4, suspicious findings.
--- OUTSIDE RECORDS SUMMARY | 2025-03-06 12:59 | XMS_ITS | Data Portability ---
Author Organization [facility] [place] Address [address] [place] [address] Assessment Encounter Date Assessment Date Assessment LastModified [...] skeleton + vertebral fracture assessmen t 2019 [facility], [address], [place], [address], 12/12/2020 12:09:46 Medication Orders Premarin 0.625 mg/gram vaginal cream 2019 020 [id number], [address] [place] [address], [id number], 12/26/2024 09:48:28 alclometa sone 0.05 % topical ointment 2019 020 [id number], [address] [place] [address], [id number], 12/26/2024 09:46:21 Patient TargetsNo targets recorded. Patient Instructions Encounter Date Encounter Id Patient Instructions Last Modified By Organization Details Last Modified Time 07/24/2020 [id number] [email or web address] Not available 11:15:57 Reason for Referral None Reported. Problems Name Problem SNOMED Code Status Onset Date Resolution Date Notes Provider Name and Address Organization Details Recorded Time Microscop ic hematuria 561740870 Active 2011 MICROSCOPI C HEMATURIA; Recorded Elsewhere: No Locatio n: [facility] rce: EHR Chroni c: N Practice ID: 0001 Billa ble Time: 08:45:00 AM Not Available [facility] 0 21:52:51 Michael hematuria 560275829 Active 2012 GROSS HEMATURIA; Recorded Elsewhere: No Locatio n: [facility] rce: EHR Chroni c: N Practice ID: 0001 Billa ble Time: 11:15:00 AM Not Available [facility] 0 21:52:52 Leukocyto sis 676433909 Active 2012 LEUKOCYTOS IS NOS;Record ed Elsewhere: No Locatio n: [facility] rce: EHR Chroni c: N Practice ID: 0001 Billa ble Time: 11:15:00 AM Not Available [facility] 0 21:52:52 Adult health examinati on Active 2012 Routine general medical examinatio n at a health care facility;Brandt badillo ID: 0001 Not Available [facility] 0 21:52:50 Specializ ed medical examinati on Active 2012 Routine gynecologi lakeisha examinatio n;Practice ID: 0001 Not Available [facility] 0 21:52:50 Screening for malignant neoplasm of cervix Active 2012 Pap Smear;Prac gavin ID: 0001 Not Available [facility] 0 21:52:50 Screening for malignant neoplasm of rectum Active 2012 Screening for malignant neoplasms of the rectum;Pra ctice ID: 0001 Not Available [facility] 0 21:52:50 Vaginitis and vulvovagi nitis Active 2012 Vaginitis and vulvovagin itis, unspecifie d;Practice ID: 0001 Not Available [facility] 0 21:52:50 Atrophic vaginitis 94202506 Active 2013 Vaginitis Atrophic Perimenopa usal;Pract ice ID: 0001 Not Available [facility] 0 21:52:[address] Concept Active 2015 Encntr for general adult medical exam w/o abnormal findings;P ractice ID: 0001 Not Available [facility] 0 21:52:[address] Concept Active 2015 Encntr for obstetrics gyn physician exam (general) (routine) w abnormal findings;P ractice ID: 0001 Not Available [facility] 0 21:52:[address] Concept Active 2015 Encntr for obstetrics gyn physician exam (general) (routine) w/o abn findings;P ractice ID: 0001 Not Available [facility] 0 21:52:50 Abdominal bloating 127630058 Active 2017 Abdominal distension (gaseous); Recorded Elsewhere: No Locatio n: [facility] Diane rce: EHR Chroni c: N Practice ID: 0001 Billa ble Time: 08:45:00 AM Not Available [facility] 0 21:52:51 Problem Notes None recorded. Procedures Surgical History Date Name Laterality Status Provider Name and Address Organization Details Recorded Time 07/09/20 24 [facility] 12/26/2024 09:49:47 09/09/19 23 Date of Last Colonoscopy completed Judy [facility] 12/26/2024 09:50:34 12/20/19 19 Date of Last Pap Smear completed Judy [facility] 12/26/2024 10:00:30 08/09/19 19 arthroscopy of knee completed Judy [facility] 12/26/2024 09:56:34 09/17/19 18 Cholecystectomy completed Layla Nino [facility] 07/24/2020 10:56:35 01/01/19 80 Dilation and Curettage completed Judy Stallingser [facility] 12/26/2024 09:55:33 [facility] 12/26/2024 09:55:49 Imaging Results None recorded. Procedure Notes None recorded. Medical Equipment None Reported. Allergies Allergen ID Allergen Name Allergen Category Reaction Reaction Severity Criticality Documentation Date Start Date Code Code System Note Provider Name and Address Organization Details Recorded Time 69996 Iodine and/or iodine compound (substanc e) Not available Not available Not available Not available 07/26/2020 62661 6004 SNOMED Comme nt: [facility]at [facility]; Not Available [facility] 0 14:20:48 2988 shrimp allergeni c extract food Not available Not available Not available 07/24/2020 91594 2 RxNorm Layla jackson [facility] 0 10:57:10 Medications Name Sig Start [...] Elsewher e: No [facility] odify By: austyn morris DateTime : 08/17/19 19 05:18:19 PM Not Available Not Available Not Available amoxicill in 500 mg capsule take 1 capsule (500MG) by oral route 3 times every day for 10 days 09/04 completed Prescrib ed Elsewher e: No Locat ion: Fernando torres [facility] odify By: marianna Padilla er DateTime : 08/26/19 13 02:37:38 PM Not Available Not Available Not Available vitamin E 670 mg (1,000 unit) capsule 06/02 completed Prescrib ed Elsewher e: Yes Loca tion: Fernando torres [facility] odify By: mikal chambers DateTime : 05/30/20 11 03:36:51 PM Not Available Not Available Not Available Cholestyr amine 4 g oral powder Take 1 scoop every day by oral route. 12/26 completed Not Available Not Available Not Available meloxicam 15 mg tablet take 1 tablet (15MG) by oral route every day 06/21 completed Prescrib ed Elsewher e: Yes Loca tion: Fernando torres [facility] odify By: andrés morris DateTime : 06/13/20 10:30:00 AM Not Available Not Available Not Available alclometa sone 0.05 % topical cream apply by topical route every day a thin layer to the affected area(s) 12/26 completed Prescrib ed Elsewher e: No Locat ion: Fernando torres [facility] odify By: melvihappel l Sol morris DateTime : 12/22/19 04:04:29 PM Not Available Not Available Not Available clobetaso l 0.05 % topical cream apply by topical route every day a thin layer to the affected area(s) 09/03 completed Prescrib ed Elsewher e: No Locat ion: Fernando torres [facility] odify By: dayna chambers DateTime : 09/06/19 10:59:57 AM Not Available Not Available Not Available Zithromax Z-Mario 250 mg tablet take 2 tablet (500MG) by oral route every day for 1 day then 1 tablet (250 mg) by oral route once daily for 4 days 08/29 completed Prescrib ed Elsewher e: No Locat ion: Fernando torres [facility] odify By: cmedical Encount er DateTime [...] Elsewher e: No Locat ion: Fernando torres [facility] odify By: andrés morris DateTime : [...] Prescrib ed Elsewher e: Yes Loca tion: [facility] odify By: amkdiallo chambers DateTime : [...] Prescrib ed Elsewher e: Yes Loca tion: [facility] odify By: lsloan Melissa ncounter DateTime : 08/22/19 13 11:15:00 AM Not Available Not Available Not Available hydrochlo rothiazid e 12.5 mg capsule take 2 capsule by oral route every day 06/21 completed Prescrib ed Elsewher e: Yes Loca tion: Fernando torres [facility] odify By: andrés morris DateTime : 06/13/20 13 10:30:00 AM Not Available Not Available Not Available Glucosami ne 500 mg tablet 11/18 completed Prescrib ed Elsewher e: Yes Loca tion: Fernando torres [facility] odify By: dayna chambers DateTime : [...] Elsewher e: Yes Loca tion: Fernando torres [facility] odify By: andrés morris DateTime : 05/30/20 03:36:51 PM Not Available Not Available Not Available ondansetr on 4 mg disintegr ating tablet DISSOLVE 1 TABLET ON THE TONGUE EVERY 6 HOURS NEEDED FOR NAUSEA/V OMITING 12/26 completed Not Available Not Available Not Available glucosami ne-chondr oitin 500 mg-400 mg tablet 12/26 completed Prescrib ed Elsewher e: Yes Loca tion: Fernando torres [facility] odify By: finesse Torres ncounter DateTime : 12/20/19 01:00:00 PM Not Available Not Available Not Available Tums 200 mg (as calcium carbonate 500 mg) chewable tablet 12/26 completed Prescrib ed Elsewher e: Yes Loca tion: Fernando torres [facility] odify By: finesse Torres ncounter DateTime [...] Elsewher e: Yes Loca tion: Fernando torres [facility] odify By: dayna chambers DateTime : 08/22/19 13 11:15:00 AM Not Available Not Available Not Available Azo 95 mg tablet 06/21 completed Prescrib ed Elsewher e: Yes [facility] By: andrés morris DateTime : [...] Elsewher e: Yes Loca tion: Lee melissa [facility] odify By: dayna chambers DateTime : 05/30/20 11 03:36:51 PM Not Available Not Available Not Available Vitamin D3 10 mcg (400 unit) capsule 08/22 completed Prescrib ed Elsewher e: Yes Loca [facility]ion: [facility] odify By: andrés morris DateTime : [...] Prescrib ed Elsewher e: Yes [facility] By: dayna chambers DateTime : 06/02/20 11 09:30:00 AM Not Available Not Available Not Available Citracal Plus Bone Density Builder 300 mg-200 unit-13.5 mg tablet 11/18 completed Prescrib ed Elsewher e: Yes Loca tion: [facility] odify By: dayna chambers DateTime : 05/30/20 11 03:36:51 PM Not Available Not Available Not Available Zolpimist 5 mg/spray (0.1 mL) oral spray spray 2 spray by translin gual route every day into the mouth, over the tongue at bedtime 12/19 completed Prescrib ed Elsewher e: Yes Loca tion: [facility] odify By: finesse chambers DateTime : [...] Updated DateTime 12/26/2024 161.29 cm 29.8 kg/m2 52690.3 g 138/75 mm[Hg] Judy Schwab [facility] 12/26/2024 09:46:02 Date Recorded Body height Body mass index (BMI) Body weight Systolic And Diastolic Provider Name and Address Organization Details Last Updated DateTime 07/24/2020 160.02 cm 31.4 kg/m2 73403.85 g 125/74 mm[Hg] Layla Nino [facility] 07/24/2020 10:56:17 Social History Question Answer Notes LastModified by Organizat ion Details LastModified Time Tobacco Smoking Status Never Smoker Judy Schwab [facility], [facility] 12/26/2024 09:53:27 Do You Have An [...] Or The Highest Degree You Have Received? [id number] Information not available 12/26/2024 Are There Any [...] 12/26/2024 Are you able to care for yourself independently? Yes Information not available 12/26/2024 Do you have difficulty dressing, bathing, grooming, or toileting? No Information not available 12/26/2024 What is your exercise level? Moderate Information not available 12/26/2024 Mental Status Question Answer Note LastModified by Organization D etails LastModified Time Do you feel stressed (tense, restless, nervous, or anxious, or unable to sleep at night)? [id number] Information not available 12/26/2024 Family History Relationship [...] Paternal grandfather: Hyperlipidemia Medical History Condition Response Arthritis Y Acid Reflux (GERD) Y High Cholesterol Y GI Problems Y Hypertension Y Gynecological History Statement/Question Response Abnormal Pap [...] SNOMED-CT Code Diagnosis ICD10 Code Diagnosis Note [id number] Sofia Peguero [facility] [address] [address] 07/24/2020 10:45:30 07/24/2020 11:17:12 Gynecologic examination 70513959 Z01.419 Take Calcium with Vitamin D 12-1500mg daily. Do monthly self breast exams. It is advised to get annual flu shot in the fall and she could obtain at [facility] or [facility] clinic. If you haven't received the Tdap [...] current SA spouse has dementia [place]ammo w[place] 54037 Dexa wnl per pt 01/2020 PCP: dr. jhonathan Hurt UTD colonoscop y USPSTF recommends against screening for cervical cancer in women older than 65yo who have had adequate prior screening & are not otherwise at high risk for cervical cancer. Pt verbalized understand ing and agreeable. RTO for med check yearly. Postmenopa usal osteopenia 438150441 M85.80 Atrophic vaginitis 13440 000 N95.2 [id number] Alvarado Orozco MD [place] [address] [address] 12/26/2024 09:08:40 12/26/2024 10:29:01 Prolapse of female genital organs 30854734 N81.9 this patient is a 74-year-ol d [...] Name 12/26/2024 1 [place] Cornelia Busby [id number] 12/26/2024 2 [employer]TRY [employer]CIAL (MEDICARE SUPPLEMENT) Cornelia Busby [id number] 12/26/2024 1 [place] Cornelia Busby [id number] OBGyn Episode Ob Episode Information Episode Created Date Number of Fetuses Patient Bloodtype Patient rh Status Prepregnancy Weight lbs Domestic Partner Domestic Partner Phone Father Name Sewer Pipe Sorter Status 12/27/19 25 1 CLOSED Fetus Data First Name Last Name Admitted to NICU Weight (g) Sex Living Outcome Pediatric Complications Fetus ID Race Codes Race Delivery Type Full Term 08395 Vaginal Delivery Romie Calculation Initial Romie Date [...] Domestic Partner Domestic Partner Phone Father Name Sewer Pipe Sorter Status 12/27/19 25 1 CLOSED Fetus Data First Name Last Name Admitted to NICU Weight (g) Sex Living Outcome Pediatric Complications Fetus ID Race Codes Race Delivery Type Full Term 10009 Vaginal Delivery Romie Calculation Initial Romie Date [...] Domestic Partner Domestic Partner Phone Father Name Sewer Pipe Sorter Status 12/27/19 25 1 CLOSED Fetus Data First Name Last Name Admitted to NICU Weight (g) Sex Living Outcome Pediatric Complications Fetus ID Race Codes Race Delivery Type Full Term 46081 Vaginal Delivery Romie Calculation Initial Romie Date [...] Domestic Partner Domestic Partner Phone Father Name Sewer Pipe Sorter Status 12/27/19 1 CLOSED Fetus Data First Name Last Name Admitted to NICU Weight (g) Sex Living Outcome Pediatric Complications Fetus ID Race Codes Race Delivery Type , Spontane ous 20403 Romie Calculation Initial Romie Date Initial Exam [...] Domestic Partner Domestic Partner Phone Father Name Sewer Pipe Sorter Status 12/27/19 1 CLOSED Fetus Data First Name Last Name Admitted to NICU Weight (g) Sex Living Outcome Pediatric Complications Fetus ID Race Codes Race Delivery Type Full Term 87317 Vaginal Delivery Romie Calculation Initial Romie Date [...] Domestic Partner Domestic Partner Phone Father Name Sewer Pipe Sorter Status 12/27/19 1 CLOSED Fetus Data First Name Last Name Admitted to NICU Weight (g) Sex Living Outcome Pediatric Complications Fetus ID Race Codes Race Delivery Type , Spontane ous 65567 Romie Calculation Initial Romie Date Initial Exam [...]
--- OUTSIDE RECORDS SUMMARY | 2025-03-06 12:59 | XMS_ITS | Clinical Summary ---
Author Organization [facility] Address [address] [place] [address] Care Team Providers Care Corn Picker Name Role Phone Meera Hurt MD Primary Care Provider [phone] Source Comments [facility],non-owned Affiliates and Associated Physician Practices is amultiple site organization consisting of ambulatory clinics and hospital sitesin [place], [place], [place] and [place]. This disclosure is being madepursuant to the Care Everywhere program and may not contain all information available regarding this patient. Last updated 04/29/18.[facility] Allergies Active Allergy Reactions Criticality Noted Date [...] Active vitamin D, ergocalciferol, (DRISDOL) 1.25 MG (87550 UT) capsule 1 Active famotidine (PEPCID) 20 [...] on file Legal Sex Female 2:05 PM [employer] [facility] Gender Identity Not on file Sexual Orientation Not on file Last Filed Vital Signs Vital Sign Reading Time Taken Comments Blood Pressure 149/81 08/15/2019 9:41 AM [facility] Pulse 67 08/15/2019 9:41 AM [facility] Temperature 36.3 C (97.4 F) 08/15/2019 9:41 AM [facility] Respiratory Rate 18 08/15/2019 9:41 AM [facility] Oxygen Saturation 98% 08/15/2019 9:41 AM [facility] Inhaled Oxygen Concentration - - Weight 77.6 kg (171 lb) 08/15/2019 5:58 AM [facility] Height 162.6 cm (5' 4) 08/15/2019 5:58 AM [facility] Body Mass Index 29.35 08/15/2019 5:58 AM [facility] Plan of Treatment Health Maintenance Due Date [...] 10/03/2020, 09/05/2020 DEPRESSION SCREENING 08/09/2024 INFLUENZA VACCINE (#1) 2025 05/26/2019 HEPATITIS B VACCINE Aged Out [...] SUPPLEMENT PAYOR GENERIC MEDICARE MEDICARE Care Teams Corn Picker Relationship Specialty Start Date End Date Meera Hurt MD [address] [place] [address] PCP - General Family Medicine 05/09/19
== END 2025-03-06 12:52 | disposition home or self-care (01) ==
LOC: ANHIMG 12:52
PROVIDERS: PCP Family Medicine; Visit Provider Family Medicine
DX: R92.8 Other abnormal and inconclusive findings on diagnostic imaging of breast (principal)
CPT/HCPCS: 77061; 77065; G0279

== ENCOUNTER 2025-05-17 11:50 | Outpatient (CLI) | payer MEDICARE, SELFPAY ==
--- NOTE | 2025-05-17 12:50 | ECG_ITS ---
Test Date: 2025-05-17 13:00:59 Measurements Intervals Blanch Rate: 69 P: 54 MO: 200 QRS: -40 QRSD: 91 T: 17 QT: 392 QTc: 422 Interpretive Statements SINUS RHYTHM LEFT AXIS DEVIATION INCOMPLETE RIGHT BUNDLE BRANCH BLOCK LOW QRS VOLTAGE IN PRECORDIAL LEADS PATTERN CONSISTENT WITH PULMONARY DISEASE BORDERLINE T WAVE ABNORMALITY- ANT/INF LEADS BORDERLINE ECG No previous ECG available for comparison Electronically Signed On 05-17-2025 14:08:45 CDT by Mario Encarnacion D.O.
[2025-05-17 13:21] LABS: INR 1.1; Partial Thromboplastin Time 30.4 Seconds (22.3-36.8); Prothrombin Time 13.9 Seconds (11.1-14.7)
== END 2025-05-17 11:51 | disposition home or self-care (01) ==
LOC: ANHSURGERY 11:55
PROVIDERS: PCP Family Medicine; Visit Provider Urology
DX: N81.4 Uterovaginal prolapse, unspecified (principal); I10 Essential (primary) hypertension; Z01.818 Encounter for other preprocedural examination
CPT/HCPCS: 36415; 85610; 85730; 86850; 86900; 86901; 93005

== ENCOUNTER 2025-05-28 02:20 | Day surgery (SDC) | payer MEDICARE, SELFPAY ==
--- NOTE | 2025-05-17 11:54 | PC.NURSE ---
[facility] has started construction of its new state of the art ER which will open Spring 2026. With this, we anticipate parking may be a challenge for some our surgical patients and families. Parking spaces are limited but are available for all Surgical, obstetrics, and ER patients sharing this lot. If you arrive and find you are having a hard time finding a parking space, please note that we understand the challenges, please drive around the hospital and park near Hospital Entrance 1. When you enter this entrance, you can ask a volunteer to direct or take you back to the surgical waiting area to check in. We appreciate everyone?s understanding of these expected challenges while we build for your future. Report to the Outpatient Waiting Room, entrance under the green pavilion located off [address], at time __6 am on date _05/28/25 . Planned Procedure Time: __7:30 am .? Time changes happen often and if your time is changed the preop area will call you the afternoon before. - You and your visitor will be asked to self-screen and do not enter if you have any COVID symptoms. Please call surgeon if you need to reschedule. - A mask is optional within the hospital at this time. Patients may have clear liquids (water, carbonated beverages, clear teas, apple juice) until 3 hours prior to surgery ( 4:30 am) with a maximum of 20 ounces. - No food from midnight until time of surgery and no smoking, or chewing tobacco (or any form of nicotine). No chewing gum, candy or mints. - Take only the following medications with a SIP of water on the morning of surgery: ____METOPROLOL DO NOT STOP ANY OF YOUR OTHER PRESCRIPTION MEDICATIONS PRIOR TO SURGERY EXCEPT THE FOLLOWING Hold all vitamins and supplements for 3 days per anesthesiologist.LAST DOSE 05/24/25 Medications to discontinue per physician NONE Please no make-up, nail syrian, hairspray, perfume, deodorant, or body powder the day of surgery.? No jewelry (including any body piercings) or valuables the day of surgery, leave them at home.? Please take a shower or bath the night before, or the morning of, surgery with an antibacterial soap.? Wear comfortable, loose fitting clothing.? Children are encouraged to wear pajamas. - Jewelry must be removed prior to entering the operating room.? Rings and piercings that are not removed may be cut off. - The hospital will not accept responsibility for valuables.? - Please leave all valuables, including medications, at home the day of surgery. If you are going home after surgery, a licensed route cdl driver must drive you home.? - NO public transportation without another adult if you receive anesthesia. - We recommend that an adult stay with you for 24 hours following discharge. - We also recommend that you do not drive, make important decision, drink alcoholic beverages, or take any drugs that were not prescribed by your health care provider for at least 24 hours after your discharge time. For Pediatric surgeries, we recommend two adults accompany the child home. Follow any additional instructions given to you from your surgeon. VERBAL AND WRITTEN instructions given to ___PATIENT and asked if any additional questions and then verbalized understanding. Patient advised to call surgeon office or pre surgery nurse liaison [phone] if any additional questions.
[2025-05-17 11:58] VITALS: BMI 31.5
[2025-05-17 12:37] VITALS: BP 139/69; PULSE 72; RESP 18; TEMP 36.9; O2SAT 99
--- NOTE | 2025-05-25 08:55 | PM.IMHP ---
H&P: HPI History of Present Illness Date/Time: 05/25/25 08:55 Chief Complaint: surgery Narrative: uterine prolapse occult MEKA Review of Systems Review of Systems: All systems reviewed & are unremarkable except as noted in HPI and below PMFSH Past Medical History Medical History Insomnia Encounter for immunization Arthritis of shoulder region, right Anxiety Chronic cholecystitis with calculus Essential (primary) hypertension Gastroesophageal reflux disease Pure hypercholesterolemia Vitamin D deficiency Surgical History Surgical History History of bilateral tubal ligation History of tonsillectomy History of cholecystectomy Family History Family History Father Hypertension Family history of thyroid disease Family history of coronary artery disease Mother Hypertension Family history of diabetes mellitus in first degree relative Family history of malignant neoplasm of brain Family history of heart disease in male family member before age 55 Diabetes mellitus Family history of hypercholesterolemia Family history of coronary artery disease, Onset Age: 70 Sibling Patient's sister is in good health Patient's brother is in good health Social History Social History Smoking status: Never smoker Second hand tobacco smoke exposure: No Alcohol intake: current Alcohol use details: rare Substance use: never Substance use type: does not use Lack of Transportation: No Lack of Food: Never True Current Housing: I Have Housing Concerned About Future Housing: No Difficulty Paying Gas/Electric Bills: No Difficulty Paying for Meds: Decline to Answer Currently Unemployed: No Education: Associate Degree Difficulty w/ Childcare or Family Care: No Living arrangements: alone Occupation/Education: retired Gender identity (if verbalized by the patient): Female Sexual Orientation (if Verbalized by the Patient): Straight or Heterosexual Spiritual care concerns: No Agree to blood products: Yes Meds Home Medications and Allergies Home Medications ?Medication ?Instructions ?Recorded ?Confirmed ?Type calcium 315 mg (as 1 tablet PO DAILY #30 tabs 09/28/19 05/17/25 Rx citrate)-vitamin D3 5 mcg (200 unit) tablet (Calcium Citrate + D) metoprolol succinate 25 mg 25 mg PO DAILY #90 tabs 03/29/20 05/17/25 Rx tablet,extended release 24 hr losartan 25 mg tablet 25 mg PO DAILY 07/07/23 05/17/25 History melatonin 1 mg tablet 1 mg PO DAILY 08/21/24 05/17/25 History ergocalciferol (vitamin D2) 1,250 1,250 mcg PO WEEKLY #12 caps 10/12/24 05/17/25 Rx mcg (50,000 unit) capsule simvastatin 20 mg tablet See Rx Instructions .Route 10/12/24 05/17/25 Rx .COMPLEX #90 tabs famotidine 20 mg tablet 20 mg PO BID #180 tabs 03/08/25 05/17/25 Rx amitriptyline 25 mg tablet 25 mg PO HS 05/17/25 05/17/25 History Allergies Allergy/AdvReac Type Severity Reaction Status Date / Time hydrocodone AdvReac Intermediate Hyperactive Verified 05/17/25 12:00 shrimp AdvReac Intermediate Nausea Verified 05/17/25 12:00 lisinopril AdvReac Unknown Cough Verified 05/17/25 12:00 Exam Narrative: + urethral mobility apex -1 Assessment and Plan Assessment and plan (1) Uterine prolapse: Code(s): N81.4 - Uterovaginal prolapse, unspecified Status: Acute (2) MEKA (stress urinary incontinence, female): Code(s): N39.3 - Stress incontinence (female) (male) Status: Acute Plan robotic colpopexy, urethral sling
[2025-05-28] VITALS (14 sets, daily range): BP systolic 107–154; BP diastolic 53–83; PULSE 67–88; RESP 10–17; TEMP 36.1–36.6; O2SAT 94–100; BMI 30.8
[2025-05-28] MEDS: ACETAMINOPHEN 500 MG TABLET 1000 MG PO (07:00)
--- NOTE | 2025-05-28 07:00 | WPDANESEPPF ---
Anes - Initial Pre Proc Eval Procedure: Operation Date: 05/28/25 07:30 Proposed Procedures p Robotic Sacrocolpopexy, Urethral Sling - David Winston MD s Robotic Assisted Laparoscopic Supracervical Hysterectomy with Bilateral Salpingo-Oophorectomy - Alvarado Orozco MD Date/Time: 05/28/25 07:00 Surgeon: David Winston MD Pre Op Diagnosis: complete uterovaginal prolapse Patient Data Age: 75 Gender: F Height: 1.61 m Weight: 82.1 kg Last Vital Signs Temp 36.9 C 05/17/25 12:37 Pulse 72 05/17/25 12:37 Resp 18 05/17/25 12:37 BP 139/69 05/17/25 12:37 Pulse Ox 99 05/17/25 12:37 O2 Del Method Room Air 05/17/25 12:37 Allergies Allergy/AdvReac Type Severity Reaction Status Date / Time hydrocodone AdvReac Intermediate Hyperactive Verified 05/17/25 12:00 shrimp AdvReac Intermediate Nausea Verified 05/17/25 12:00 lisinopril AdvReac Unknown Cough Verified 05/17/25 12:00 Home Medications ?Medication ?Instructions ?Recorded ?Confirmed ?Type calcium 315 mg (as 1 tablet PO DAILY #30 tabs 09/28/19 05/17/25 Rx citrate)-vitamin D3 5 mcg (200 unit) tablet (Calcium Citrate + D) metoprolol succinate 25 mg 25 mg PO DAILY #90 tabs 03/29/20 05/17/25 Rx tablet,extended release 24 hr losartan 25 mg tablet 25 mg PO DAILY 07/07/23 05/17/25 History melatonin 1 mg tablet 1 mg PO DAILY 08/21/24 05/17/25 History ergocalciferol (vitamin D2) 1,250 1,250 mcg PO WEEKLY #12 caps 10/12/24 05/17/25 Rx mcg (50,000 unit) capsule simvastatin 20 mg tablet See Rx Instructions .Route 10/12/24 05/17/25 Rx .COMPLEX #90 tabs famotidine 20 mg tablet 20 mg PO BID #180 tabs 03/08/25 05/17/25 Rx amitriptyline 25 mg tablet 25 mg PO HS 05/17/25 05/17/25 History Patient hx anesthesia problems: none Family hx anesthesia problems: none Results Review: All pre-operative results and documents have been reviewed as part of the pre-operative evaluation. [facility] Past Medical History Medical History Insomnia Encounter for immunization Arthritis of shoulder region, right Anxiety Chronic cholecystitis with calculus Essential (primary) hypertension Gastroesophageal reflux disease Pure hypercholesterolemia Vitamin D deficiency Surgical History Surgical History History of bilateral tubal ligation History of tonsillectomy History of cholecystectomy Family History Family History Father Hypertension Family history of thyroid disease Family history of coronary artery disease Mother Hypertension Family history of diabetes mellitus in first degree relative Family history of malignant neoplasm of brain Family history of heart disease in male family member before age 55 Diabetes mellitus Family history of hypercholesterolemia Family history of coronary artery disease, Onset Age: 70 Sibling Patient's sister is in good health Patient's brother is in good health Social History Social History Smoking status: Never smoker Second hand tobacco smoke exposure: No Alcohol intake: current Alcohol use details: rare Substance use: never Substance use type: does not use Lack of Transportation: No Lack of Food: Never True Current Housing: I Have Housing Concerned About Future Housing: No Difficulty Paying Gas/Electric Bills: No Difficulty Paying for Meds: Decline to Answer Currently Unemployed: No Education: Associate Degree Difficulty w/ Childcare or Family Care: No Living arrangements: with family Occupation/Education: retired Gender identity (if verbalized by the patient): Female Sexual Orientation (if Verbalized by the Patient): Straight or Heterosexual Spiritual care concerns: No Agree to blood products: Yes Anes - Eval Final PreProcedure Day of Procedure 05/28/25 07:00 Patient weight: obese Heart: regular rate and rhythm Lungs: clear to auscultation Airway: Mallampati scale class II Neurological: alert and oriented Last oral intake: >/= 8 hours ASA classification: III Emergent: no Anesthetic plan: proceed Anesthesia type and monitoring: general ETT and standard monitoring Results Review: All pre-operative results and documents have been reviewed as part of the pre-operative evaluation. Informed Consent: The patient's anesthetic plan and its attendant risks and benefits were discussed with the patient/family/POA. Questions were solicited and answers provided to the satisfaction of the patient/family/POA.
[2025-05-28] MEDS: KETOROLAC 15 MG/ML VIAL (*BKC) IV PUSH ×2 (07:05→12:48)
[2025-05-28] MEDS: LACTATED RINGERS 1,000 ML 30 ML IV CONT ×2 (07:05→09:53)
--- NOTE | 2025-05-28 07:09 | WPDHPUPDATE1 ---
History and Physical Update Update Date/Time: 05/28/25 07:09 History and Physical has been reviewed, including an updated exam of the patient. There are NO changes in the patient's condition. Risks, benefits, and alternatives have been discussed and questions answered. Patient agrees to proceed with procedure.
--- NOTE | 2025-05-28 07:17 | WPDHPUPDATE1 ---
History and Physical Update Update Date/Time: 05/28/25 07:17 History and Physical has been reviewed, including an updated exam of the patient. There are NO changes in the patient's condition. Risks, benefits, and alternatives have been discussed and questions answered. Patient agrees to proceed with procedure.
[2025-05-28] MEDS: ceFAZolin 2 GM in SODIUM CHLORIDE 0.9% IV 50 ML 100 ML IVPB (07:28)
[2025-05-28] MEDS: metroNIDAZOLE 500 MG/ISO 100ML 500 MG/100 ML BAG 100 MG IVPB ×3 (07:28→20:44)
--- NOTE | 2025-05-28 08:33 | W.PM.PROC2 ---
Procedure Note - Detailed Date of Procedure 05/28/25 Pre-op Diagnosis complete uterovaginal prolapse Post-op Diagnosis Same Procedure Performed Robotic assisted supracervical hysterectomy with bilateral salpingo-oophorectomy Surgeon Alvarado Orozco MD Anesthesia General Indications pelvic organ prolapse Findings Normal appearing uterus, fallopian tubes, ovaries. Nonspecific uterovaginal prolapse. Description of Procedure This patient was taken to the operating room. She was prepped and draped in the dorsal lithotomy position after induction of general anesthesia. the robot trocars and docking was performed by Dr. Winston. a tenaculum was applied to the vaginal mucosa at the cervicovaginal juncture posteriorly. This was done with a speculum and tenaculum. The speculum was placed. The cervix was grasped with a tenaculum. Trocars were placed by Dr. Winston. The location of the ureters was identified at the pelvic brim. The ovaries were grasped and raised. The infundibulopelvic ligaments were cauterized and transected with LigaSure cautery. This was all done in a bilateral fashion. The para ovarian tissue was cauterized and transected with LigaSure cautery bilaterally. Moving around the ovary into the broad ligament the tissue was cauterized transected with The vessel sealer cautery. The round ligaments were cauterized transected with the vessel sealer cautery this was all done in a bilateral fashion. In a stepwise fashion along the lateral aspects of the uterus the round ligament and broad ligaments were cauterized transected down to the level of the uterine arteries. The cervix was transected using unipolar cautery. the uterus was bifurcated down to the level the cervix. The uterus and bilateral tubes and ovaries were laid off to the side for Dr. Winston to remove later. The remainder of the procedure was performed by Dr. Winston, again he finished the surgery. Drains Yes Packing No Pathology Yes Complications No immediate complications Condition Stable Disposition Floor
--- NOTE | 2025-05-28 09:31 | S_PTH ---
PATIENT: Cornelia Busby LOC: [facility] U#:[id number] AGE/SX: 75/F ROOM: RE05/28/[address]: David Winston MD : 1950 BED: DIS: 05/29/2025 SPEC #: [id number] RECD: 05/28/25 10:15 STATUS: KARSON REQ #: [id number] MI: 05/28/25 09:[address]: David Winston DEPT: [facility] Surgical RECD BY: Nancy Talavera ENTERED: 05/28/25 10:16 SP TYPE: Surgical OTHR DR: Meera HurtMD Tissues: A - Uterus Procedures: Hematoxylin and Eosin Stain Gross and Microscopic Level 5 P53 MLH1 MSH2 MSH6 PMS2 P16
--- NOTE | 2025-05-28 09:54 | W.PM.PROC2 ---
Procedure Note - Detailed Date of Procedure 05/28/25 Pre-op Diagnosis complete uterovaginal prolapse Stress incontinence- occult Post-op Diagnosis Same Procedure Performed Robotic assisted laparoscopic sacral colpopexy Urethral sling Cystoscopy Surgeon David Winston MD Anesthesia General Indications a woman with uterine prolapse as well as stress incontinence noted on urodynamics. She desires surgical correction. She is here for the above. She understands risks of bleeding, infection, diskitis, damage to surrounding organs, bowel injury, bowel obstruction, mesh related complications including exposure and extrusion, postoperative voiding dysfunction including incontinence and retention, need for ancillary procedures, dyspareunia, recurrence of prolapse, and other perioperative intraoperative postoperative complications. She agrees to proceed. Findings See below Description of Procedure She was correctly identified. Informed consent obtained. She from the operating room. She was given general anesthesia. She was given appropriate perioperative antibiotics. She was placed a low lithotomy position. Pressure points were padded. A time-out performed. I marked out the skin 3 fingerbreadths cephalad to the umbilicus. I anesthetized the skin. I incised the skin. I dissected down to the fascia. I grasped the fascia with Aly clamps. I entered the fascia sharply in a Polanco type technique. I placed sutures for later fascial closure. I placed a midline trocar. I examined the abdomen. There is no sign of any injury. Under direct vision I placed 2 additional trocars in the right upper quadrant and 2 additional trocars the left upper quadrant. She was placed in steep Trendelenburg. The robot was docked. Her office services clerk completed their portion of the procedure. Please see that operative report for details. I then sat at the console. The Sizer in the vagina created plane on the anterior and posterior vaginal wall. I took great care not to injure the vagina, bladder, or rectum. I introduced the mesh into the abdomen. I sewed the anterior leaflet of mesh on the anterior vaginal wall. I sewed the posterior leaflet of mesh on the posterior vaginal wall. This was done with several sutures of 2 0 [place]. I reflected the colon laterally. I opened the posterior peritoneum over the sacral promontory. I carried this into the cul-de-sac. I freed up the edges for later retroperitonealization. I located the anterior longitudinal ligament the sacrum. I cleaned off all fatty tissues. I then tensioned my mesh appropriately. I did a vaginal exam the bedside. I assured prolapse reduction without undue tension. I then sewed the proximal leaflet of mesh onto the anterior longitudinal ligament of the sacrum with 3 sutures of 2 0 [place]. I then used a 2 0 Monocryl to completely and meticulously retroperitonealized all mesh. I allowed the colon to go back to its normal anatomic location. There is no sign of any impingement. The specimen was then removed. All ports removed. Fascia was tied down. an additional [id number] suture was used to fully close the fascia appear. Skin was closed with Monocryl and surgical glue. She was repositioned and prepped for urethral sling. she had marked atrophic changes and changes of lichen sclerosis. These changes were on the outer vulva. I marked out the inner thigh incisions. I anesthetized the skin and made the incisions. I then anesthetized the anterior vaginal wall at the mid urethra. I made a 1 cm incision. I dissected out laterally taking great care not to injure the refilled vaginal wall. I passed the helical trocars. I did this 1st on the left and then on the right. This was done from the thigh incision towards the vaginal incision. Sling was connected to the trocars and brought out the thigh incision. I tensioned the sling appropriately. I cut and the plastic sheaths. I closed the incision with 2 0 Vicryl. I then performed cystoscopy. There was no tumors or surgical artifact. Both ureters were seen to excrete clear yellow urine. There is no surgical artifact in the bladder or urethra. I cut the excess sling material. Close incision with glue. She was awakened and transferred to PACU in stable condition. Implants Sacral colpopexy mesh Urethral sling Estimated Blood Loss 30 Packing No Pathology None sent Complications No immediate complications Condition Stable Disposition PACU
[2025-05-28] MEDS: BUPIVACAINE/EPINEPHRINE 0.5% 50 ML VIAL 38 ML INFILTRATE (10:27)
[2025-05-28] MEDS: KCL 20 MEQ/D5/0.45% SOD CHL 1,000 ML 100 ML IV CONT (12:36)
[2025-05-28] MEDS: ceFAZolin 1 GM in SODIUM CHLORIDE 0.9% IV 50 ML 100 ML IVPB ×2 (15:15→23:47)
[2025-05-28] MEDS: MORPHINE SULFATE (*CRX) 4 MG/ML INJ 2 MG IV PUSH (15:39)
[2025-05-28] MEDS: ACETAMINOPHEN 325 MG TABLET 650 MG PO ×2 (16:33→20:44)
--- NOTE | 2025-05-28 16:53 | OBPPTRN ---
1000- Patient transferred to LD room #112. Support person present. Oriented to unit, room, security measures. Patient verbalizes understanding.
--- NOTE | 2025-05-28 16:54 | PC.NURSE ---
1600- Pt c/o BART hose being too tight when this nurse was applying them. BART hose removed, call central supply for larger size knee high TEDS.
[2025-05-28] MEDS: FAMOTIDINE 20 MG TABLET PO (19:24)
[2025-05-28] MEDS: SIMVASTATIN 20 MG TABLET PO (19:24)
[2025-05-28] MEDS: AMITRIPTYLINE HCL 25 MG TABLET PO (20:44)
[2025-05-29] MEDS: traMADol HCL (*CRX) 50 MG TABLET PO ×2 (00:03→09:22)
[2025-05-29 04:30] VITALS: BP 129/55; PULSE 66; RESP 14; TEMP 36.3; O2SAT 97
[2025-05-29] MEDS: metroNIDAZOLE 500 MG/ISO 100ML 500 MG/100 ML BAG 100 MG IVPB (04:34)
[2025-05-29] MEDS: SIMETHICONE 80 MG TAB.CHEW PO (05:38)
[2025-05-29] MEDS: CEPHALEXIN 500 MG CAPSULE PO (05:38)
--- NOTE | 2025-05-29 08:28 | PM.GYNPNOP ---
MARKETING SUPPORT ASSISTANT - A/P Postoperative Procedures: Procedures Operation Date: 05/28/25 07:30 Actual Procedure Side Surgeon p Robotic Sacrocolpopexy, Urethral Sling David Winston MD s Robotic Assisted Laparoscopic Supracervical Hysterectomy with Bilateral Salpingo-Oophorectomy Alvarado Orozco MD Postoperative day: 1 Postoperative status: doing well Postoperative plan: see orders Time Spent With Patient Time: Total time spent is greater than 50% in coordination of care (as documented) at patient's floor/unit and/or counseling patient: Time with patient: less than 15 minutes MARKETING SUPPORT ASSISTANT- PN:Subj Post-Op Subjective Date/time seen: 05/29/25 08:28 Subjective: patient reports feeling better, patient has no complaints and pain is well controlled Exam Const: General: healthy appearing, comfortable and no acute distress Resp: Auscultation: clear to auscultation bilaterally, no rales, no rhonchi and no wheezes Cardio: Rate: regular rate Heart sounds: no click, no murmurs and no rubs GI: Inspection: non-distended Auscultation: normal bowel sounds Extrem: General: normal to inspection, no pedal edema and no calf tenderness MARKETING SUPPORT ASSISTANT - PN: Obj Data Vital Signs Vital Signs: Vital Signs - 24 hr 05/28/25 09:53 05/28/25 10:05 05/28/25 10:20 Temperature 97.0 F L Pulse Rate 74 71 70 Respiratory Rate 17 10 L 12 Blood Pressure 130/69 137/73 139/76 Pulse Oximetry 100 100 100 Oxygen Delivery Simple Face Mask Simple Face Mask Simple Face Mask Oxygen Flow Rate 10 10 10 05/28/25 10:35 05/28/25 10:45 05/28/25 10:50 Temperature Pulse Rate 70 76 69 Respiratory Rate 12 14 12 Blood Pressure 143/77 H 149/77 H 138/77 Pulse Oximetry 100 100 100 Oxygen Delivery Simple Face Mask Simple Face Mask Simple Face Mask Oxygen Flow Rate 10 10 10 05/28/25 11:05 05/28/25 11:20 05/28/25 11:35 Temperature Pulse Rate 73 71 67 Respiratory Rate 12 12 12 Blood Pressure 151/78 H 148/80 H 154/83 H Pulse Oximetry 97 94 94 Oxygen Delivery Room Air Room Air Room Air Oxygen Flow Rate 05/28/25 12:16 05/28/25 17:00 05/28/25 19:25 Temperature 97.9 F 97.9 F 97 F L Pulse Rate 74 71 82 Respiratory Rate 14 14 15 Blood Pressure 146/73 H 140/63 107/58 L Pulse Oximetry 96 98 95 Oxygen Delivery Oxygen Flow Rate 05/28/25 19:25 05/28/25 23:45 05/28/25 23:45 Temperature 97.4 F L Pulse Rate 74 Respiratory Rate 14 Blood Pressure 110/53 L Pulse Oximetry 95 Oxygen Delivery Room Air Room Air Oxygen Flow Rate 05/29/25 04:30 05/29/25 04:30 Temperature 97.4 F L Pulse Rate 66 Respiratory Rate 14 Blood Pressure 129/55 L Pulse Oximetry 97 Oxygen Delivery Room Air Oxygen Flow Rate Intake/Output Intake/Output: Intake & Output 05/26/25 05/27/25 05/28/25 05/29/25 23:59 23:59 23:59 23:59 Intake Total 3060 1550 Output Total 2575 1550 Balance 485 0 Meds/Results Medications: Active Medications Generic Name Dose Route Start Last Admin Trade Name Freq PRN Reason Stop Dose Admin Acetaminophen 650 mg 05/28/25 11:54 05/28/25 20:44 Acetaminophen 325 Mg Tablet PO 650 mg Q4H PRN Administration Mild Pain (1-3) or Fever Amitriptyline HCl 25 mg 05/28/25 21:00 05/28/25 20:44 Amitriptyline Hcl 25 Mg Tablet PO 25 mg HS GRISELDA Administration Cephalexin HCl 500 mg 05/29/25 06:00 05/29/25 05:38 Cephalexin 500 Mg Capsule PO 500 mg Q6HR GRISELDA Administration Diphenhydramine HCl 25 mg 05/28/25 11:54 Diphenhydramine Hcl Inj 50 Mg/Ml Vial IV PUSH Q6H PRN Itching Docusate Sodium 100 mg 05/29/25 09:00 Docusate Sodium 100 Mg Capsule PO DAILY GRISELDA Enoxaparin Sodium 30 mg 05/29/25 09:00 Enoxaparin 30 Mg/0.3 Ml Syringe SUB-Q DAILY GRISELDA Famotidine 20 mg 05/28/25 21:00 05/28/25 19:24 Famotidine 20 Mg Tablet PO 20 mg Q12HR GRISELDA Administration Potassium Chloride/Dextrose/Sod Cl 1,000 mls @ 100 mls/hr 05/28/25 11:54 05/29/25 02:56 Kcl 20 Meq/D5/0.45% Sod Chl IV CONT Not Given .Q10H GRISELDA Metronidazole 500 mg in 100 mls @ 100 mls/hr 05/28/25 16:00 05/29/25 04:34 Flagyl 500 Mg/Iso Soln 100 Ml IVPB 100 mls/hr Q8H GRISELDA Administration Ketorolac Tromethamine 15 mg 05/28/25 11:54 05/28/25 12:48 Ketorolac 15 Mg/Ml Vial (*Bkc) IV PUSH 15 mg Q8H PRN Administration Pain Rated 5 or Less Losartan Potassium 25 mg 05/29/25 09:00 Losartan Potassium 25 Mg Tablet PO DAILY [facility] Metoprolol Succinate 25 mg 05/29/25 09:00 Metoprolol Succinate Ext Rel 25 Mg Tabcr PO DAILY [facility] Morphine Sulfate 2 mg 05/28/25 11:54 05/28/25 15:39 Morphine Sulfate (*Crx) 4 Mg/Ml Inj IV PUSH 2 mg Q2H PRN Administration Pain Rated 6 or Greater Ondansetron HCl 4 mg 05/28/25 11:54 Ondansetron Inj 4 Mg/2 Ml Vial IV PUSH Q6H PRN Nausea And Vomiting Simethicone 80 mg 05/29/25 05:03 05/29/25 05:38 Simethicone 80 Mg Tab.Chew PO 80 mg Q2H PRN Administration Gas Simvastatin 20 mg 05/28/25 18:00 05/28/25 19:24 Simvastatin 20 Mg Tablet PO 20 mg QPM GRISELDA Administration Tramadol HCl 50 mg 05/28/25 11:54 05/29/25 00:03 Tramadol Hcl (*Crx) 50 Mg Tablet PO 50 mg Q6H PRN Administration Pain Rated 4-6 Zolpidem Tartrate 5 mg 05/28/25 11:54 Zolpidem Tartrate (*Crx) 5 Mg Tablet PO HS PRN Insomnia
[2025-05-29 08:39] VITALS: BP 146/80; PULSE 73; RESP 18; TEMP 36.4; O2SAT 99
[2025-05-29 09:19] VITALS: PULSE 73
[2025-05-29] MEDS: METOPROLOL SUCCINATE EXT REL 25 MG TABCR PO (09:19)
[2025-05-29] MEDS: FAMOTIDINE 20 MG TABLET PO (09:20)
[2025-05-29] MEDS: LOSARTAN POTASSIUM 25 MG TABLET PO (09:20)
[2025-05-29] MEDS: DOCUSATE SODIUM 100 MG CAPSULE PO (09:21)
[2025-05-29] MEDS: ENOXAPARIN 30 MG/0.3 ML SYRINGE SUB-Q (09:47)
[2025-05-29] MEDS: INFLUENZA VACCINE HIGH DOSE (>64) 180 MCG/0.5 ML SYRINGE IM (10:25)
== END 2025-05-29 10:53 | disposition home or self-care (01) ==
LOC: ANHSURGERY 10:01 → ANHOBPP 12:04
PROVIDERS: Obstetrics & Gynecology; PCP Family Medicine; Visit Provider Urology
PROC: (CPT 57425; principal; 2025-05-28 07:30)
PROC: 0UT94ZZ Resection of Uterus, Percutaneous Endoscopic Approach (ICD-10-PCS; CPT 57425; 2025-05-28 07:30)
DX: N81.4 Uterovaginal prolapse, unspecified (principal); N39.3 Stress incontinence (female) (male); C54.1 Malignant neoplasm of endometrium; D27.1 Benign neoplasm of left ovary; N83.12 Corpus luteum cyst of left ovary; N83.11 Corpus luteum cyst of right ovary; N80.03 Adenomyosis of the uterus; N88.8 Other specified noninflammatory disorders of cervix uteri; I10 Essential (primary) hypertension; K21.9 Gastro-esophageal reflux disease without esophagitis; E78.00 Pure hypercholesterolemia, unspecified; M19.011 Primary osteoarthritis, right shoulder; F41.9 Anxiety disorder, unspecified; E55.9 Vitamin D deficiency, unspecified; G47.00 Insomnia, unspecified; K80.10 Calculus of gallbladder with chronic cholecystitis without obstruction; E66.9 Obesity, unspecified; Z68.30 Body mass index [BMI] 30.0-30.9, adult; Z98.890 Other specified postprocedural states; Z90.49 Acquired absence of other specified parts of digestive tract; Z98.51 Tubal ligation status; Z23 Encounter for immunization; Z85.3 Personal history of malignant neoplasm of breast; Z80.8 Family history of malignant neoplasm of other organs or systems; Z82.49 Family history of ischemic heart disease and other diseases of the circulatory system
CPT/HCPCS: 58542; 57425; S2900 ×2; 88307; 88342; 90471; 90662; 99199; J0690; A9270; C1771; C1781; G0008; J1100; J1171; J1650; J1836; J1885; J2003; J2250; J2270; J2405; J2704; J3010; J3480; J7030; J7120

== ENCOUNTER 2025-07-02 14:31 | Emergency (ER) | payer MEDICARE, SELFPAY ==
--- OUTSIDE RECORDS SUMMARY | 2017-12-13 23:00 | XMS_ITS | Encounter Summary ---
Author Organization [facility] Healthcare Address [address] [place] [address] Care Team Providers Care Engineering Program Manager Name Role Phone Unavailable Primary Care Provider Unavailabl e Reason for Referral * Diagnostic Imaging (Routine) - Pending Review Specialty Diagnoses / Procedures Referred By Contac t Referred To Contact Procedures Breast Imaging Screening Outside Reference Transcribed Order, Provider Referral ID Status Reason Start Date Expiration Date V isits Requested Visits Authorized [id number] Pending Review 04/17/2025 05/17/2026 1 1 Reason for Visit * Diagnostic Imaging (Routine) - Pending Review Specialty Diagnoses / Procedures Referred By Contac t Referred To Contact Procedures Breast Imaging Screening Outside Reference Transcribed Order, Provider Referral ID Status Reason Start Date Expiration Date V isits Requested Visits Authorized [id number] Pending Review 04/17/2025 05/17/2026 1 1 Encounter Details Date Type Department Care Team (Late st Contact Info) Description 12/14/2017 Hospital Encounter [facility] [address] [place] [id number] Social History Tobacco Use Types Packs/Day Years Used Date Smoking Tobacco: Never Passive Smoke Exposure: Never Smokeless Tobacco: Never Alcohol Use Standard Drinks/Week Comments Yes 0 (1 standard drink = 0.6 oz pur e alcohol) AUDIT-C Answer Date Recorded Q1: How often do you have a drink containing alc ohol? Monthly or less 06/18/2025 Q2: How many drinks containi ng alcohol do you have on a typical day when you are drinking? 1 or 2 06/18/2025 Q3: How often do you have si x or more drinks on one occasion? Never 06/18/2025 Personal Safety Answer Date Recorded Have you ever been in or are you currently in a harmful physical or emotional relationship or is someone making you feel afraid or unsafe? 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 Gender Identity Not on file Sexual Orientation Not on file documented as of this encounter Functional Status * Difference in Last Two Christoph Scores Answer Date of Assessment Author -1 06/18/2025 10:00 AM Bessie Tapia RN * Question Answer Date of Assessment Author BP Method Automatic 06/18/2025 8:30 AM Christie Cruz RN MAP (mmHg) 98 06/18/2025 9:50 AM Bessie Garcia RN * Graves Fall Risk Question Answer Date of Assessment Author History of Falling 0 06/18/2025 8:33 AM Christie Charles RN Secondary Diagnosis 15 06/18/2025 8:33 AM Christie Charles RN Ambulatory Aids 0 06/18/2025 8:33 AM Christie Null RN Intravenous Therapy/Heparin/Saline Lock 20 06/18/2025 8:33 AM Christie Fung RN Gait/Transferring 0 06/18/2025 8:33 AM Christie Fung RN Mental Status 0 06/18/2025 8:33 AM Christie Gallegos RN Graves Fall Risk Score (Score >= 45 places fall precaution order) 35 06/18/2025 8:33 AM Gabriela Fung RN Prior Fall Event (Autopopulated from EMR) None found 06/18/2025 8:33 AM David Fung RN * Christoph Scale Question Answer Date of Assessment Author Sensory Perceptions 4 06/18/2025 10:00 AM Bessie Butler RN Moisture 4 06/18/2025 10:00 AM Bessie Lewis RN Activity 4 06/18/2025 10:00 AM Bessie Lewis RN Mobility 4 06/18/2025 10:00 AM Bessie Lewis RN Nutrition 4 06/18/2025 10:00 AM Bessie Lewis RN Friction and Shear 3 06/18/2025 10:00 AM Bessie Dolan RN Christoph Scale Score 23 06/18/2025 10:00 AM Bessie Dolan RN * BP Location Answer Date of Assessment Author Right arm 06/25/2025 10:35 AM Batsheva Ann * Fall Risk Interventions Question Answer Date of Assessment Author All Low Fall Interventions Applied Yes 06/18/2025 8:33 AM Christie Fung RN All Moderate Fall Interventions Applied No 06/18/2025 8:33 AM Christie Fung RN All Moderate Fall Risk Interventions EXCEPT: PT eval requested or obtained;OT eval requested or obtained;Fall risk sign with education 06/18/2025 8:33 AM Christie Fung RN Reason For Exception(s) PACU 06/18/20 25 8:33 AM Christie Fung RN * Pressure Injury Prevention Question Answer Date of Assessment Author Pressure Ulcer Prevention Interventions Keep skin clean and dry (Sensory Perception/Moisture ) 06/18/2025 10:00 AM Bessie Tapia RN * AUDIT-C Score Answer Date of Assessment Author 1 06/18/2025 6:18 AM Austin Terrell RN * Alcohol Use Question Answer Date of Assessment Author Q1: How often do you have a drink containing alcohol? Monthly or less 06/18/2025 6:18 AM Lupe Terrell Ma, RN Q2: How many drinks containing alcohol do you have on a typical day when you are drinking? 1 or 2 06/18/2025 6:18 AM Lupe Terrell RN Q3: How often do you have six or more drinks on one occasion? Never 06/18/2025 6:18 AM Lupe Terrell Ma, RN * Integumentary Question Answer Date of Assessment Author Skin Color Appropriate for ethnicity 06/18/2025 8:30 AM Christie Fung RN Skin Condition/Temp Warm;Dry 06/18/2025 8 :30 AM Christie Fung, MAGDALENA Skin Integrity Surgical incision 06/18/2025 10: 00 AM Bessie Tapia, MAGDALENA Skin Turgor Non-tenting 06/18/2025 8:30 AM Christie Fung, MAGDALENA Integumentary Additional Assessments Yes-Christoph 06/18/2025 8:30 AM Christie Fung RN Integumentary (WDL) X 06/18/2025 1 0:00 AM Bessie Tapia RN Skin Location left breast 06/18/2025 10:00 AM Bessie Tapia, MAGDALENA * Christoph Scale Question Answer Date of Assessment Author Christoph Scale Used Christoph 06/18/2025 8:30 AM Christie Fung, MAGDALENA * Question Answer Date of Assessment Author Hearing - Right Ear Functional 06/05/2025 3:07 PM Meera Bhandari RN Hearing - Left Ear Functional 06/05/2025 3:07 PM Meera Roy RN Assistive Devices/DME Eyeglasses 06/05/2025 3:07 PM Meera Roy RN * Question Answer Date of Assessment Author BP Method Automatic 06/18/2025 8:30 AM Christie Cruz RN * BP Location Answer Date of Assessment Author Right arm 06/25/2025 10:35 AM Batsheva Ann * Fall Risk Interventions Question Answer Date of Assessment Author All Low Fall Interventions Applied Yes 06/18/2025 8:33 AM Christie Fung RN All Moderate Fall Interventions Applied No 06/18/2025 8:33 AM Christie Fung, MAGDALENA All Moderate Fall Risk Interventions EXCEPT: PT eval requested or obtained;OT eval requested or obtained;Fall risk sign with education 06/18/2025 8:33 AM Christie Fung, MAGDALENA Reason For Exception(s) PACU 06/18/20 25 8:33 AM Christie Fung, MAGDALENA documented as of this encounter Mental Status * Question Answer Entry Date Author Level of Consciousness Drowsy;Responds t o voice 06/18/2025 9:00 AM Christie Fung, MAGDALENA Orientation Oriented to person;Oriented to place;Oriented to situation 06/18/2025 9:00 AM Christie Fung, MAGDALENA Neuro (WDL) WDL 06/18/2025 10:00 AM Bessie Tapia RN documented in this encounter Plan of Treatment Not on file documented as of this encounter Procedures Procedure Name Priority Date/Time Associated Diagnosis Comments BREAST IMAGING MG SCREENING OUTSIDE REFERENCE Routine 12/14/2017 12:00 AM CDT documented in this encounter Results * Breast Imaging Screening Outside Reference (12/14/2017 12:00 AM CDT) Impressions [facility] - 04/17/2025 2:45 PM CDT These images are for Reference purposes only and have not been reviewed by [facility]. There will be no report generated by a [facility] Radiologist. Narrative [facility] - 04/17/2025 2:45 PM CDT EXAMINATION: Images For Reference Purposes Only us Provider Transcribed Order IMG MAMMO PROCEDURES Final Result [facility] documented in this encounter Visit Diagnoses Not on filedocumented in this encounter
--- OUTSIDE RECORDS SUMMARY | 2019-01-18 23:00 | XMS_ITS | Encounter Summary ---
Author Organization [facility] Healthcare Address [address] [place] [address] Care Team Providers Care Associate Trainer Name Role Phone Unavailable Primary Care Provider Unavailabl e Reason for Referral * Diagnostic Imaging (Routine) - Pending Review Specialty Diagnoses / Procedures Referred By Contac t Referred To Contact Procedures Breast Imaging Screening Outside Reference Transcribed Order, Provider Referral ID Status Reason Start Date Expiration Date V isits Requested Visits Authorized [id number] Pending Review 04/17/2025 05/17/2026 1 1 Reason for Visit * Diagnostic Imaging (Routine) - Pending Review Specialty Diagnoses / Procedures Referred By Contac t Referred To Contact Procedures Breast Imaging Screening Outside Reference Transcribed Order, Provider Referral ID Status Reason Start Date Expiration Date V isits Requested Visits Authorized [id number] Pending Review 04/17/2025 05/17/2026 1 1 Encounter Details Date Type Department Care Team (Late st Contact Info) Description 01/19/2019 Hospital Encounter [facility] [address] [place] [id number] Social History Tobacco Use Types Packs/Day Years [...] on file 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 There will be no report generated by a [facility] Radiologist. Narrative [facility] - 04/17/2025 2:45 PM CDT EXAMINATION: Images For Reference Purposes Only us Provider Transcribed Order IMG MAMMO PROCEDURES Final Result [facility] documented in this encounter Visit Diagnoses Not on filedocumented in this encounter
--- OUTSIDE RECORDS SUMMARY | 2020-03-26 23:00 | XMS_ITS | Encounter Summary ---
Author Organization [facility] Healthcare Address [address] [place] [address] Care Team Providers Care Tape Machine Tailer Name Role Phone Unavailable Primary Care Provider Unavailabl e Reason for Referral * Diagnostic Imaging (Routine) - Pending Review Specialty Diagnoses / Procedures Referred By Contac t Referred To Contact Procedures Breast Imaging Screening Outside Reference Transcribed Order, Provider Referral ID Status Reason Start Date Expiration Date V isits Requested Visits Authorized [id number] Pending Review 03/27/2025 04/26/2026 1 1 Reason for Visit * Diagnostic Imaging (Routine) - Pending Review Specialty Diagnoses / Procedures Referred By Contac t Referred To Contact Procedures Breast Imaging Screening Outside Reference Transcribed Order, Provider Referral ID Status Reason Start Date Expiration Date V isits Requested Visits Authorized [id number] Pending Review 03/27/2025 04/26/2026 1 1 Encounter Details Date Type Department Care Team (Late st Contact Info) Description 03/27/2020 Hospital Encounter [facility] [address] [place] [id number] Social History Tobacco Use Types Packs/Day Years [...] on file 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 Gender Identity Not on file Sexual Orientation [...] of Falling 0 06/18/2025 8:33 AM Christie Fung RN Secondary Diagnosis 15 06/18/2025 8:33 AM CS T Christie Pride RN Ambulatory Aids 0 06/18/2025 8:33 AM [...] Surgical incision 06/18/2025 10: 00 AM Bessie Tapia RN Skin Turgor Non-tenting 06/18/2025 8:30 AM Christie [...] Assistive Devices/DME Eyeglasses 06/05/2025 3:07 PM Meera Ryo RN * Question Answer Date of Assessment [...] BREAST IMAGING MG SCREENING OUTSIDE REFERENCE Routine 03/27/2020 12:00 AM CDT documented in this encounter Results * Breast Imaging Screening Outside Reference (03/27/2020 12:00 AM CDT) Impressions [facility] - 03/27/2025 7:55 AM CDT These images are for Reference purposes only and have not been reviewed by [facility]. There will be no report generated by a [facility] Radiologist. Narrative [facility] - 03/27/2025 7:55 AM CDT EXAMINATION: Images For Reference Purposes Only us Provider Transcribed Order IMG MAMMO PROCEDURES Final Result [facility] documented in this encounter Visit Diagnoses Not on filedocumented in this encounter
[2025-07-02 14:42] VITALS: BP 150/74; PULSE 87; RESP 18; TEMP 36.2; O2SAT 92
[2025-07-02 15:03] LABS: EDUAAPPEAR Cloudy; EDUABILI Negative (Negative); EDUABLOOD 1+ (Negative); EDUACOLOR1 Yellow; EDUAGLUCOSE Negative (Negative); EDUAKETONE Negative (Negative); EDUALEUKO 3+ (Negative); EDUANITRATE Negative (Negative); EDUAPH 6.0; EDUAPROTEIN Negative (Negative); EDUASPGRAVITY 1.005; EDUAUROBILI 0.2
--- NOTE | 2025-07-02 15:33 | ED_ITS ---
HPI - Female Genitourinary General Chief complaint: Urogenital-Female Stated complaint: UTI Time Seen by Provider: 07/02/25 15:29 Source: patient and RN notes reviewed Mode of arrival: ambulatory Limitations: no limitations History of Present Illness HPI Narrative: 75-year-old female patient presents today complaining of a 2 day history of lower abdominal pressure with cloudy and malodorous urine that started this morning. She also reports some slight increased urinary frequency. Denies back pain or fever. No recent antibiotic use except for inpatient antibiotics after a recent hysterectomy and bladder sling approximately 5 weeks ago. Related Data Home Medications ?Medication ?Instructions ?Recorded ?Confirmed ?Last Taken ?Type losartan 25 mg tablet 25 mg PO DAILY 07/07/2305/1005/27/25 History melatonin 1 mg tablet 1 mg PO DAILY 08/21/2405/17 Unknown History amitriptyline 25 mg tablet 25 mg PO HS 05/17/25 Unknown History Allergies Allergy/AdvReac Type Severity Reaction Status Date / Time hydrocodone AdvReac Intermediate Hyperactive Verified 05/28/25 07:09 shrimp AdvReac Intermediate Nausea Verified 05/28/25 07:09 lisinopril AdvReac Unknown Cough Verified 05/28/25 07:09 PMFSH Past Medical History Medical History Insomnia Encounter for immunization Arthritis of shoulder region, right Anxiety Chronic cholecystitis with calculus Essential (primary) hypertension Gastroesophageal reflux disease Pure hypercholesterolemia Vitamin D deficiency Surgical History Surgical History History of bilateral tubal ligation History of tonsillectomy History of cholecystectomy Family History Family History Father Hypertension Family history of thyroid disease Family history of coronary artery disease Mother Hypertension Family history of diabetes mellitus in first degree relative Family history of malignant neoplasm of brain Family history of heart disease in male family member before age 55 Diabetes mellitus Family history of hypercholesterolemia Family history of coronary artery disease, Onset Age: 70 Sibling Patient's sister is in good health Patient's brother is in good health Social History Social History Smoking status: Never smoker Second hand tobacco smoke exposure: No Alcohol intake: current Alcohol use details: rare Substance use: never Substance use type: does not use Lack of Transportation: No Lack of Food: Never True Current Housing: I Have Housing Concerned About Future Housing: No Difficulty Paying Gas/Electric Bills: No Difficulty Paying for Meds: Decline to Answer Currently Unemployed: No Education: Associate Degree Difficulty w/ Childcare or Family Care: No Living arrangements: with family Occupation/Education: retired Gender identity (if verbalized by the patient): Female Sexual Orientation (if Verbalized by the Patient): Straight or Heterosexual Spiritual care concerns: No Agree to blood products: Yes Comments At time of signature, I have reviewed and agree with nursing past medical, surgical, social and family history unless otherwise noted. Please see nursing chart for further information. There is no relevant family history pertinent to the presenting complaint Exam Narrative: GENERAL: Well-appearing, well-nourished, and in no acute distress. HEAD: Normocephalic, atraumatic. EYES: EOMI. No redness or drainage. Conjunctivae normal. ENT: Mucous membranes pink and moist. NECK: Normal AROM. CHEST: No respiratory distress. Clear to auscultation. HEART: Regular rate and rhythm. No murmur appreciated. ABDOMEN: Soft, nontender, nondistended, normal active bowel sounds. -CVAT EXTREMITIES: Normal range of motion. No edema. SKIN: Warm, dry, no rash. Capillary refill normal. Normal skin turgor. NEURO: No focal deficits. Alert and oriented x3. Gait steady. PSYCH: Normal affect. No signs of depression or anxiety. Course Course Level of Care: Express Care Visit Vital Signs Vital signs: Vital Signs Temperature 97.2 F L 07/02/25 14:42 Pulse Rate 87 07/02/25 14:42 Respiratory Rate 18 07/02/25 14:42 Blood Pressure 150/74 H 07/02/25 14:42 Pulse Oximetry 92 07/02/25 14:42 Oxygen Delivery Room Air 07/02/25 14:42 Temperature 97.2 F L 07/02/25 14:42 Pulse Rate 87 07/02/25 14:42 Respiratory Rate 18 07/02/25 14:42 Blood Pressure 150/74 H 07/02/25 14:42 Pulse Oximetry 92 07/02/25 14:42 Oxygen Delivery Room Air 07/02/25 14:42 Reviewed MDM - Female Genitourinary MDM Narrative Medical decision making narrative: 75-year-old female patient presents today complaining of a 2 day history of lower abdominal pressure with cloudy and malodorous urine that started this morning. She also reports some slight increased urinary frequency. Denies back pain or fever. No recent antibiotic use except for inpatient antibiotics after a recent hysterectomy and bladder sling approximately 5 weeks ago. Normal physical exam. Urinalysis showed 1+ blood and 2+ leukocytes. She will be started on some Keflex for acute UTI. Patient agrees with plan. Vital signs stable. Anticipatory guidance given. Differential Diagnosis Differential diagnosis: Likely urinary tract infection, cystitis and other (Pyelonephritis) Lab Data Attestation: I reviewed the patient's lab results. Labs: Lab Results 07/02/25 Range/Units 15:00 POC Urine Color Yellow POC Urine Clarity Cloudy POC Urine pH 6.0 POC Ur Specif [place] 1.005 POC Urine Protein Negative (Negative) POC Ur Glucose (UA) Negative (Negative) POC Urine Ketones Negative (Negative) POC Urine Blood 1+ (Negative) POC Urine Nitrite Negative (Negative) POC Urine Bilirubin Negative (Negative) POC Urine Urobilinogen 0.2 POC U Leukocyte Esteras 3+ (Negative) Critical Care Time Critical Care Time Critical Care Time: No Discharge Plan Discharge Clinical Impression: Urinary tract infection Qualifiers: Urinary tract infection type: acute cystitis Hematuria presence: with hematuria Qualified Code(s): N30.01 - Acute cystitis with hematuria Patient Disposition: Home Condition: Stable Instructions: Antibiotic Form, Urinary Tract Infection in Older Adults (ED) Additional Instructions: Your urine shows infection today. Take Keflex as prescribed until gone. Your urine will be sent of for a culture to identify what type of bacteria is causing your infection. If the culture shows that your medication will not get rid of your infection, you will be notified and a new antibiotic will be called in for you. If your symptoms worsen to include fever, sweats, chills, nausea, vomiting, severe abdominal or back pain, please go to the ER for further evaluation. Patient Language: Egyptian Prescriptions: New cephalexin 500 mg capsule 500 mg PO BID 7 Days Qty: 14 0RF No Action melatonin 1 mg tablet 1 mg PO DAILY metoprolol succinate 25 mg tablet extended release 24 hr 25 mg PO DAILY Qty: 90 3RF famotidine 20 mg tablet 20 mg PO BID Qty: 180 3RF calcium citrate-vitamin D3 [Calcium Citrate + D] 315-200 mg-unit tablet 1 tablet PO DAILY Qty: 30 0RF losartan 25 mg tablet 25 mg PO DAILY amitriptyline 25 mg tablet 25 mg PO HS tramadol 50 mg tablet 50 mg PO Q6H PRN (Reason: pain) Qty: 20 0RF docusate sodium [Colace] 100 mg capsule 100 mg PO BID Qty: 40 0RF tramadol 50 mg tablet 50 mg PO Q6H PRN (Reason: pain) Qty: 20 0RF simvastatin 20 mg tablet See Rx Instructions .ROUTE .COMPLEX Qty: 90 3RF Dose Instruction: TAKE 1 TABLET BY MOUTH EVERY DAY IN THE EVENING Rx Instructions: TAKE 1 TABLET BY MOUTH EVERY DAY IN THE EVENING ergocalciferol (vitamin D2) 1,250 mcg (50,000 unit) capsule 1,250 mcg PO WEEKLY Qty: 12 3RF Patient Comments: TAKES ON SATURDAYS Follow-up/Referrals: Blu,MD Meera [Primary Care Provider, Family Practice] Time of Disposition: 15:37
--- OUTSIDE RECORDS SUMMARY | 2025-07-02 17:12 | XMS_ITS | Encounter Summary ---
Author Organization [facility] Address [facility] [place] [address] Care Team Providers Care Illuminating Engineer Name Role Phone Meera Hurt MD Primary Care Provider [phone] Felipe Day MD Unavailable [phone] Encounter Details Date Type Department Care Team (Latest Contact Info) Description 03/15/2024 [facility] Message Enc [facility] Medical Group Multispecialty Care - [facility] [address] [facility], [address] [place] [phone] Oj Bills MD 3 [facility] [address] [place] [address] Refill Famotidine Social History Tobacco [...] Care Team (Late st Contact Info) Description 03/15/2026 9:30 AM CDT [facility] [address] [place] [address] Mesha Deras PA [address] [facility], [address] [place], [place] [id number] Albaro Drew MD Three [facility]. [address] [place], [place] [id number] documented as of this encounter Visit Diagnoses Not on filedocumented in this encounter Care Teams Illuminating Engineer Relationship Specialty Start Date End Date Meera Hurt MD PCP - General FAMILY PRACTICE 07/12/18 Felipe Day MD GASTROENTEROLOGY 08/16/18 documented as of this encounter
--- OUTSIDE RECORDS SUMMARY | 2025-07-02 17:12 | XMS_ITS | Encounter Summary ---
Author Organization [facility] Address [facility] [place] [address] Care Team Providers Care Health Care Analyst Name Role Phone Meera Hurt MD Primary Care Provider [phone] Felipe Day MD Unavailable [phone] Encounter Details Date Type Department Care Team (Late st Contact Info) Description 10/11/2023 [employer] Message Enc [facility] Medical Group Multispecialty Care - [facility] [address] [facility], [address] [place] [phone] Oj Bills MD 3 [facility] [address] [place], [place] [id number] Medication Social History Tobacco Use Types Packs/Day [...] Description 03/15/2026 9:30 AM CDT Office Visit [facility] [address] [place] [phone] Mesha Deras PA 3 [facility], [address] [place], [place] [address] Albaro Drew MD Three [facility]. [address] [place], [place] [phone] documented as of this encounter Visit Diagnoses Not on filedocumented in this encounter Care Teams Health Care Analyst Relationship Specialty Start Date End Date Meera Hurt MD PCP - General FAMILY PRACTICE 07/12/18 Felipe Day MD GASTROENTEROLOGY 08/16/18 documented as of this encounter
--- OUTSIDE RECORDS SUMMARY | 2025-07-02 17:12 | XMS_ITS | Encounter Summary ---
Author Organization [facility] Address [facility] [place] [address] Care Team Providers Care Farm Helper Name Role Phone Meera Hurt MD Primary Care Provider [phone] Felipe Day MD Unavailable [phone] Encounter Details Date Type Department Care Team (Late st Contact Info) Description 07/22/2021 Abstract [facility] [address] Jan Quintana MA Social History Tobacco Use [...] COVID-19? No / Unsure 07/17/2021 10:19 AM ORACLE APPLICATIONS ANALYST documented as of this encounter Plan of Treatment Upcoming Encounters Date Type Department Care Team (Late st Contact Info) Description 03/15/2026 9:30 AM CDT Office Visit [facility] [address] [place] [address] Mesha Deras PA [address] [facility], [address] [place], [place] [phone] Albaro Drew MD Three [facility]. [address] [place], [place] [id number] documented as of this encounter Procedures Procedure Name Priority Date/Time Associated Diagnosis Comments HEMOGLOBIN, GLYCOSYLATED Routine 09/19/2024 COMPREHENSIVE METABOLIC PANEL Routine 09/19/2024 LIPID PANEL Routine 09/19/2024 CBC, MANUAL DIFF Routine 09/19/2024 COMPREHENSIVE METABOLIC PANEL Routine 08/17/2023 LIPID PANEL Routine 08/17/2023 CBC, MANUAL DIFF Routine 08/17/2023 THYROID STIM HORMONE TSH Routine 08/17/2023 VITAMIN D, 25 OH Routine 08/17/2023 COMPREHENSIVE METABOLIC PANEL Routine 06/12/2022 LIPID PANEL Routine 06/12/2022 THYROID STIM HORMONE TSH Routine 06/12/2022 VITAMIN D, 25 OH Routine 06/12/2022 CBC (OUTSIDE LAB) Routine 05/23/2021 COMPREHENSIVE METABOLIC PANEL Routine 05/23/2021 documented in this encounter Results * COMPREHENSIVE METABOLIC PANEL (09/19/2024) SODIUM S/P/B 136 GLUCOSE 103 mg/dL AST 16 BUN 12 CREATININE S/P/B 0.61 0.5 - 1.0 CALCIUM S/P/B 9.7 POTASSIUM S/P/B 4.1 CHLORIDE S/P/B 97 ALT 15 GFR ESTIMATE 93 Default History Genericprovider LABORATORY Final Result * LIPID PANEL (09/19/2024) Pathologist [facility] CHOLESTEROL 141 TRIGLYCERIDES 111 HDL 52 LDL (CALCULATED) 79 NON HDL CHOLESTEROL 89 Default History Genericprovider LABORATORY Final Result * CBC, MANUAL DIFF (09/19/2024) Pathologist [facility] WBC 5.8 HGB 13.4 HCT 41.8 PLT 230 Default History Genericprovider LABORATORY Final Result * HEMOGLOBIN, GLYCOSYLATED (09/19/2024) Pathologist [facility] HGB A1C 6.2 % Default History Genericprovider LABORATORY Final Result * VITAMIN D, 25 OH (08/17/2023) Pathologist [facility] VITAMIN D 25 HYDROXY S/P/B 97 08/17/2023 Default History Genericprovider LABORATORY Final Result * COMPREHENSIVE METABOLIC PANEL (08/17/2023) Pathologist [facility] SODIUM S/P/B 138 GLUCOSE 107 mg/dL AST 15 BUN 10 CREATININE S/P/B 0.58 0.5 - 1.0 CALCIUM S/P/B 9.4 POTASSIUM S/P/B 3.8 CHLORIDE S/P/B 102 ALT 14 GFR ESTIMATE 94 Default History Genericprovider LABORATORY Final Result * LIPID PANEL (08/17/2023) Pathologist [facility] CHOLESTEROL 166 TRIGLYCERIDES 157 HDL 48 LDL (CALCULATED) 93 NON HDL CHOLESTEROL 118 Default History Genericprovider LABORATORY Final Result * CBC, MANUAL DIFF (08/17/2023) Pathologist [facility] WBC 5.2 HGB 13.5 HCT 40.2 PLT 248 Result [facility] History Genericprovider LABORATORY Final Result * THYROID STIM HORMONE TSH (08/17/2023) Pathologist [facility] TSH 1.94 Result [facility] Genericprovider LABORATORY Final Result * VITAMIN D, 25 OH (06/12/2022) Pathologist [facility] VITAMIN D 25 HYDROXY S/P/B 70 06/12/2022 Result [facility] Genericprovider LABORATORY Final Result * THYROID STIM HORMONE, TSH (06/12/2022) Pathologist [facility] TSH 1.67 06/12/2022 Result [facility] Genericprovider LABORATORY Final Result * (ABNORMAL) COMPREHENSIVE METABOLIC PANEL (06/12/2022) [facility] SODIUM S/P/B 136 POTASSIUM S/P/B 4.6 CO2 29 CHLORIDE S/P/B 100 GLUCOSE 91 mg/dL CALCIUM S/P/B 9.5 BUN 17 CREATININE S/P/B 0.69 0.5 - 1.0 EGFR NON-AFR. AMER. 91(A) <=90 ALKALINE PHOSPHATASE S/P/B 54 ALT 14 AST 14 BILIRUBIN TOTAL S/P/B 0.8 ALBUMIN S/P/B 4.3 3.5 - 5.0 TOTAL PROTEIN S/P/B 6.4 GLOBULIN 2.1 06/12/2022 Result [facility] History Genericprovider LABORATORY Final Result * LIPID PANEL (06/12/2022) Pathologist [facility] CHOLESTEROL 154 HDL 48 TRIGLYCERIDES 182 NON HDL CHOLESTEROL 106 LDL (CALCULATED) 78 06/12/2022 us Default History Genericprovider LABORATORY Edited Result - Final * CBC (OUTSIDE LAB) (05/23/2021) WBC 5.5 HGB 13.4 HCT 40.1 PLT 222 05/23/2021 us Doc [facility] Abstract LAB-OUTSIDE/ABSTRACTED Final Result * (ABNORMAL) COMPREHENSIVE METABOLIC PANEL (05/23/2021) Pathologist [facility] SODIUM S/P/B 138 POTASSIUM S/P/B 4.1 CO2 [...] on filedocumented in this encounter Care Teams Farm Helper Relationship Specialty Start Date End Date Meera Hurt MD PCP - General FAMILY PRACTICE 07/12/18 Felipe Day MD GASTROENTEROLOGY 08/16/18 documented as of this encounter
--- OUTSIDE RECORDS SUMMARY | 2025-07-02 17:12 | XMS_ITS | Encounter Summary ---
Author Organization [facility] Address [facility] [place] [address] Care Team Providers Care Refinery Operator Crude Unit Name Role Phone Meera Hurt MD Primary Care Provider [phone] Felipe Day MD Unavailable [phone] Encounter Details Date Type Department Care Team (Late st Contact Info) Description 05/26/2017 Abstract [facility] CONVERSION [address] [place] [address] , Generic MD Angle Social History Tobacco Use Types Packs/Day Years [...] Description 03/15/2026 9:30 AM CDT Office Visit [facility] [address] [place] [address] Mesha Deras PA [address] [facility], [address] [place] [address] Albaro Drew MD Three [facility]. [address] [place] [address] documented as of this encounter Visit Diagnoses Not on filedocumented in this encounter Care Teams Refinery Operator Crude Unit Relationship Specialty Start Date End Date Meera Hurt MD PCP - General FAMILY PRACTICE 07/12/18 Felipe Day MD GASTROENTEROLOGY 08/16/18 documented as of this encounter
--- OUTSIDE RECORDS SUMMARY | 2025-07-02 17:12 | XMS_ITS | Encounter Summary ---
Author Organization [facility] Address [facility] [place] [address] Care Team Providers Care Director Of District Office Name Role Phone Meera Hurt MD Primary Care Provider [phone] Felipe Day MD Unavailable [phone] Encounter Details Date Type Department Care Team (Late st Contact Info) Description 05/09/2013 Abstract [facility] CONVERSION [address] [place] [address] , Generic MD Angle Social History Tobacco [...] Description 03/15/2026 9:30 AM CDT Office Visit [facility] [address] [place] [address] Mesha Deras PA [address] [facility], [address] [place] [address] Albaro Drew MD Three [facility]. [address] [place] [address] documented as of this encounter Visit Diagnoses Not on filedocumented in this encounter Care Teams Director Of District Office Relationship Specialty Start Date End Date Meera Hurt MD PCP - General FAMILY PRACTICE 07/12/18 Felipe Day MD GASTROENTEROLOGY 08/16/18 documented as of this encounter
--- OUTSIDE RECORDS SUMMARY | 2025-07-02 17:12 | XMS_ITS | Clinical Summary ---
Author Organization [facility] Address [address] [place] [address] Care Team Providers Care Canoe Maker Name Role Phone Meera Hurt MD Primary Care Provider [phone] Felipe Day MD Unavailable [phone] Allergies Active Allergy Reactions Criticality Noted [...] by mouth once a week. 02/05/2024 Active amitriptyline (ELAVIL) 25 MG tabletIndication s:Gastroesophage al reflux disease, unspecified whether esophagitis present,Epigastr ic pain Take 1 tablet (25 mg total) by mouth nightly at bedtime. 90 tablet 1 10/09/2024 Active famotidine (PEPCID) 20 MG tabletIndication s:Epigastric pain TAKE 1 TABLET BY MOUTH 2 TIMES DAILY NEEDED FOR HEARTBURN. 180 tablet 1 10/09/2024 Active losartan (COZAAR) 25 MG tablet TAKE 1 TABLET (25 MG TOTAL) BY MOUTH DAILY. 90 tablet 3 04/03/2025 Active metoprolol succinate ER (TOPROL-XL) 25 MG 24 hr tablet TAKE 1 TABLET (25 MG TOTAL) BY MOUTH DAILY. 90 tablet 3 04/03/2025 Active Active Problems Problem Noted Date Diagnosed Date Class 1 obesity due to exces s calories without serious comorbidity with body mass index (BMI) of 31.0 to 31.9 in adult 02/18/2024 Assessment & Plan (03/09/2025 12:03 PM CDT): She is obese with a Body mass index is 31.18 kg/m . She was educated on lifestyle modifications including diet and exercise. Assessment & Plan (02/18/2024 9:51 AM CDT): [...] Essential (primary) hypertension 07/18/2021 Assessment & Plan (03/09/2025 12:02 PM CDT): Blood pressure well controlled at 130/70 mmHg in office today. Patient monitors blood pressure every few days at home with consistent readings. Continue losartan 25 mg and toprol-XL 25 mg daily. Assessment & Plan (02/18/2024 9:47 AM CDT): Blood pressure well controlled at 126/70 mmHg in office today. Patient monitors blood pressure every few days at home with consistent readings. Continue losartan 25 mg and toprol-XL 25 mg daily. Assessment & Plan (07/24/2022 9:18 AM OUT AND OUT CIGAR MAKER HAND): Well controlled on current regimen Although due to cough - could be due to lisinopril - we will switch to losartan Assessment & Plan (07/18/2021 10:12 AM OUT AND OUT CIGAR MAKER HAND): Her blood pressure is well controlled according to her home readings, even though her blood pressure in the office today is elevated. Continue lisinopril 10 mg daily. Palpitations 07/18/2021 Assessment & Plan (07/24/2022 8:49 AM OUT AND OUT CIGAR MAKER HAND): Well controlled No issues Assessment & Plan (07/18/2021 10:12 AM OUT AND OUT CIGAR MAKER HAND): Her palpitations are well controlled. Continue metoprolol succinate 25 mg daily. Hyperlipidemia, mixed 07/18/2021 Assessment & Plan (03/09/2025 12:03 PM CDT): Recent lipid panel in September 2024 with LDL of 79. Continue Simvastatin 20mg. Assessment & Plan (02/18/2024 9:49 AM CDT): Recent lipid panel in August with LDL of 93. Continue Simvastatin 20mg. Assessment & Plan (07/24/2022 9:19 AM OUT AND OUT CIGAR MAKER HAND): 06/12/22 Total cholesterol 154 Triglycerides 1822 HDL 48 LDL 78 Continued on simvastatin 20mg daily Assessment & Plan (07/18/2021 10:13 AM OUT AND OUT CIGAR MAKER HAND): Her total cholesterol has been between 160 [...] (Prevnar 13) 05/23/2018 Shingrix 02/22/2020,10/10/2019 Zoster (Zostavax) [address]302 Unt/0.65Ml 03/04/2013 Family History Medical History Relation [...] Sign Reading Time Taken Comments Blood Pressure 130/70 03/09/2025 11:41 AM CDT Pulse 71 03/09/2025 11:41 AM CDT Temperature 36.4 C (97.6 F) 10/09/2024 3:25 PM OUT AND OUT CIGAR MAKER HAND Respiratory Rate 18 10/09/2024 3:25 PM OUT AND OUT CIGAR MAKER HAND Oxygen Saturation 98% 10/09/2024 3:25 PM OUT AND OUT CIGAR MAKER HAND Inhaled Oxygen Concentration - - Weight 79.8 kg (176 lb) 03/09/2025 11:41 AM CDT Height 160 cm (5' 3) 03/09/2025 11:41 AM CDT Body Mass Index 31.18 03/09/2025 11:41 AM CDT Plan of Treatment Upcoming Encounters Date Type Department Care Team (Late st Contact Info) Description 03/15/2026 9:30 AM CDT Office Visit [facility] [address] [place] [phone] Mesha Deras PA [address] [facility], [address] [place] [address] Albaro Drew MD Three [facility]. [address] [place] [address] Health Maintenance Due Date Last Done Comments Hepatitis C 01/12/1966 DTaP, Tdap and Td Vaccines (1 - Tdap) 01/12/1967 Annual Medicare Wellness Visit 01/12/2013 Dexa Scan (General) 01/12/2013 RSV Immunization or 60+ Years (1 - 1-dose 75+ series) 01/12/2023 COVID-19 Vaccine (3 - 2024- season) 2025 10/03/2020, 09/05/2020 Influenza Adult (#1) 2025 05/07/2020, 05/26/2019, 05/02/2017, Additional history exists Pneumococcal Vaccine: 50+ Years Completed 05/24/2019, 05/23/2018 Zoster Vaccines Completed 02/22/2020, 10/2019, 03/04/2013 Colorectal Cancer Screening Colonoscopy (10 Years) Discontinued 11/03/2023 PHQ-2 (Physician [place]) Completed 10/09/2024 Hepatitis A Vaccines Aged Out No long er eligible based on patient's age to complete this topic Meningococcal B Vaccine Aged Out No l onger eligible based on patient's age to complete this topic Meningococcal Vaccine Aged Out No sheila catina eligible based on patient's age to complete this topic RSV Immunizations Under 20 Months Aged Out No longer eligible based on patient's age to complete this topic Insurance MEDICARE COUNTRY INSURANCE MEDICARE COUNTRY INSURANCE Care Teams Canoe Maker Relationship Specialty Start Date End Date Meera Hrut MD PCP - General FAMILY PRACTICE 07/12/18 Felipe Day MD GASTROENTEROLOGY 08/16/18
--- OUTSIDE RECORDS SUMMARY | 2025-07-02 17:12 | XMS_ITS | Continuity of Care Document ---
Author Organization [facility] Address [address] [place] [address] Care Team Providers Care Home Visitor [employer] Name Role Phone CHRISTIANA JOSEPH Primary Care Provider Assessment No assessment recorded. Plan of Treatment Reminders Order Date Submit Date Provider Last Modified By Organization Details Last Modified Time Details Appointments None record ed. Lab None record ed. Referral None record ed. Procedures None record ed. Surgeries None record ed. Imaging None record ed. Medication Orders None record ed. Patient TargetsNo targets recorded. Patient InstructionsNo instructions recorded. Reason for Referral None Reported. Results Created Date Observation Date Name Description Value Unit Range Abnormal Flag Note LastModifiedBy Organization Detail LastModifiedTime Result Notes None recorded. Problems Name Problem SNOMED Code Status Onset Date Resolution Date Notes Provider Name and Address Organization Details Recorded Time Microscop ic hematuria 663075538 Active 2011 MICROSCOPI C HEMATURIA; Recorded Elsewhere: No Locatio n: [facility] rce: EHR Chroni c: N Practice ID: 0001 Billa ble Time: 08:45:00 AM Not Available [facility] 0 21:52:51 Michael hematuria 684686112 Active 2012 GROSS HEMATURIA; Recorded Elsewhere: No Locatio n: [facility] rce: EHR Chroni c: N Practice ID: 0001 Billa ble Time: 11:15:00 AM Not Available [facility] 0 21:52:52 Leukocyto sis 661675869 Active 2012 LEUKOCYTOS IS NOS;Record ed Elsewhere: No Locatio n: [facility] rce: EHR Chroni c: N Practice ID: 0001 Billa ble Time: 11:15:00 AM Not Available [facility] 0 21:52:52 Adult health examinati on Active 2012 Routine general medical examinatio n at a health care facility;P ractice ID: 0001 Not Available [facility] 0 21:52:50 Specializ ed medical examinati on Active 2012 Routine gynecologi lakeisha examinatio n;Practice ID: 0001 Not Available [facility] 0 21:52:50 Screening for malignant neoplasm of cervix Active 2012 Pap Smear;Prac gavin ID: 0001 Not Available [facility] 0 21:52:50 Screening for malignant neoplasm of rectum Active 2012 Screening for malignant neoplasms of the rectum;Pra ctice ID: 0001 Not Available [facility] 0 21:52:50 Vaginitis and vulvovagi nitis Active 2012 Vaginitis and vulvovagin itis, unspecifie d;Practice ID: 0001 Not Available [facility] 0 21:52:50 Atrophic vaginitis 99339006 Active 2013 Vaginitis Atrophic Perimenopa usal;Pract ice ID: 0001 Not Available [facility] 0 21:52:[address] Concept Active 2015 Encntr for general adult medical exam w/o abnormal findings;P ractice ID: 0001 Not Available [facility] 0 21:52:[address] Concept Active 2015 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 abnormal findings;P ractice ID: 0001 Not Available [facility] 0 21:52:[address] Concept Active 2015 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 10:50:09 Problem Notes None recorded. Procedures Surgical History Date Name Laterality Status Provider Name and Address Organization Details Recorded Time 05/28/20 25 supracervical hysterectomy with removal of both tubes and ovaries completed [facility] 06/04/2025 10:52:01 07/09/20 24 Date of Last Mammogram completed [facility] 12/26/2024 09:49:47 09/09/19 23 Date of Last Colonoscopy completed [facility] 12/26/2024 09:50:34 12/20/19 19 Date of Last Pap Smear completed [facility] 12/26/2024 10:00:30 08/09/19 19 arthroscopy of knee completed [facility] 12/26/2024 09:56:34 09/17/19 18 Cholecystectomy completed Layla Nino [facility] 07/24/2020 10:56:35 08/09/18 80 Dilation and Curettage completed [facility] 12/26/2024 09:55:33 Tonsillectomy completed [facility] 12/26/2024 09:55:49 Imaging Results None recorded. Procedure Notes None recorded. Medical Equipment None Reported. Allergies Allergen ID Allergen Name Allergen Category Reaction Reaction Severity Criticality Documentation Date Start Date Code Code System Note Provider Name and Address Organization Details Recorded Time 33688 Iodine and/or iodine compound (substanc e) Not available Not available Not available Not available 07/26/2020 50101 6004 SNOMED Comme nt: [facility]; Not Available [facility] 0 14:20:48 2988 shrimp allergeni c extract food Not available Not available Not available 07/24/2020 23966 2 RxNorm Layla Nino [place], [place] - [facility] 0 10:57:10 Medications Name Sig Start [...] Prescrib ed Elsewher e: No Locat ion: [facility] melissa [facility] odify By: austyn morris DateTime : 08/17/19 19 05:18:19 PM Not Available Not Available Not Available amoxicill in 500 mg capsule take 1 capsule (500MG) by oral route 3 times every day for 10 days 09/04 completed Prescrib ed Elsewher e: No Locat ion: [facility] odify By: marianna Hortont er DateTime : 08/26/19 13 02:37:38 PM Not Available Not Available Not Available vitamin E 670 mg (1,000 unit) capsule 06/02 completed Prescrib ed Elsewher e: Yes Loca tion: [facility] odify By: mikal chambers DateTime : 05/30/20 11 03:36:51 PM Not Available Not Available Not Available Cholestyr amine 4 g oral powder Take 1 scoop every day by oral route. 12/26 completed Not Available Not Available Not Available meloxicam 15 mg tablet take 1 tablet (15MG) by oral route every day 06/21 completed Prescrib ed Elsewher e: Yes Loca tion: [facility] odify By: andrés morris DateTime : 06/13/20 13 10:30:00 AM Not Available Not Available Not Available alclometa sone 0.05 % topical cream apply by topical route every day a thin layer to the affected area(s) 12/26 completed Prescrib ed Elsewher e: No Locat ion: [facility] odify By: austyn morris DateTime : 12/22/19 19 04:04:29 PM Not Available Not Available Not Available clobetaso l 0.05 % topical cream apply by topical route every day a thin layer to the affected area(s) 09/03 completed Prescrib ed Elsewher e: No Locat ion: [facility] odify By: dayna Torres ncounter DateTime : 09/06/19 15 10:59:57 AM Not Available Not Available Not Available Zithromax Z-Mario 250 mg tablet take 2 tablet (500MG) by oral route every day for 1 day then 1 tablet (250 mg) by oral route once daily for 4 days 08/29 completed Prescrib ed Elsewher e: No Locat ion: [facility] odify By: mohsendical Encount er DateTime : 08/25/19 13 02:55:32 PM Not Available Not Available Not Available tramadol 50 mg tablet TAKE 1 TABLET BY MOUTH EVERY 6 HOURS NEEDED FOR PAIN active Not Available Not Available No t Available ketorolac 0.5 % eye drops PLACE 1 DROP INTO SURGICAL EYE 3 TIMES DAILY STARTING 2 DAYS BEFORE AND CONTINUE 2 WEEKS AFTER 12/26 completed Not Available Not Available Not Available Metrogel Vaginal 0.75 % (37.5 mg/5 gram) insert 1 applicat orful (37.5MG) by vaginal route every day at bedtime 06/13 completed Prescrib ed Elsewher e: No Locat ion: [facility] odify By: andrés morris DateTime : 08/25/19 13 02:55:32 PM Not Available Not Available Not Available famotidin e 20 mg tablet TAKE 1 TABLET BY MOUTH 2 TIMES DAILY NEEDED FOR HEARTBUR N. active Not Available Not Available No t Available amitripty line 25 mg tablet TAKE 1 TABLET ORALLY DAILY active Not Available Not Available No t [...] Elsewher e: Yes Loca tion: Fernando torres [facility] odify By: finesse germanuntabraham DateTime : 12/20/19 19 01:00:00 PM Not Available Not Available Not Available ciproflox acin 0.3 % eye drops INSTILL 1 DROP 3 TIMES PER DAY STARTING 2 DAYS PRIOR TO SURGERY, CONTINUE FOR 1 WEEK AFTER SURGERY 12/26 completed Not Available Not Available Not Available simvastat in 20 mg tablet TAKE 1 TABLET BY MOUTH EVERY DAY IN THE EVENING active Not Available Not Available No t Available lisinopri l 10 mg tablet TAKE 1 TABLET BY MOUTH EVERY DAY 12/26 completed Not Available Not Available Not Available losartan 25 mg tablet TAKE 1 TABLET (25 MG TOTAL) BY MOUTH DAILY. active Not Available Not Available No t Available magnesium 100 mg capsule 11/18 completed Prescrib ed Elsewher e: Yes Loca tion: [facility] torres [facility] odify By: dayna chambers DateTime : 08/22/19 13 11:15:00 AM Not Available Not Available Not Available hydrochlo rothiazid e 12.5 mg capsule take 2 capsule by oral route every day 06/21 completed Prescrib ed Elsewher e: Yes Loca tion: Lee melissa [facility] odify By: andrés morris DateTime : 06/13/20 13 10:30:00 AM Not Available Not Available Not Available Glucosami ne 500 mg tablet 11/18 completed Prescrib ed Elsewher e: Yes Loca tion: [facility] torres [facility] odify By: dayna chambers DateTime : 05/30/20 11 03:36:51 PM Not Available Not Available Not Available Prevalite 4 gram powder for suspensio n in a packet TAKE 1 PACKET BY MOUTH 2 TIMES DAILY WITH MEALS 05/20 /2025 completed Not Available Not Available Not Available [...] Prescrib ed Elsewher e: No [facility] By: dayna chambers DateTime : [...] ed Elsewher e: Yes Loca tion: Fernando [facility] odify By: andrés morris DateTime : 05/30/20 11 03:36:51 PM Not Available Not Available Not Available ondansetr on 4 mg disintegr ating tablet DISSOLVE 1 TABLET ON THE TONGUE EVERY 6 HOURS NEEDED FOR NAUSEA/V OMITING 12/26 completed Not Available Not Available Not Available glucosami ne-chondr oitin 500 mg-400 mg tablet 12/26 completed Prescrib ed Elsewher e: Yes Loca tion: [facility] torres [facility] odify By: finesse chambers DateTime : 12/20/19 01:00:00 PM Not Available Not Available Not Available Tums 200 mg (as calcium carbonate 500 mg) chewable tablet 12/26 completed Prescrib ed Elsewher e: Yes Loca tion: Fernando torres [facility] odify By: finesse germanuntabraham DateTime : 12/20/19 01:00:00 PM Not Available Not Available Not Available Calcium Citrate + D 315 mg-5 mcg (200 unit) tablet active Not Available Not Available Not Available Bactrim DS 800 mg-160 mg tablet take 1 tablet by oral route every 12 hours 06/13 completed Prescrib ed Elsewher e: No Locat ion: Fernando torres [facility] odify By: andrés morris DateTime : 09/21/19 09:38:30 AM Not Available Not Available Not Available Vitamin D3 25 mcg (1,000 unit) tablet 12/26 completed Prescrib ed Elsewher e: Yes Loca tion: Fernando torres [facility] odify By: finesse germanuntabraham DateTime : 12/20/19 01:00:00 PM Not Available [...] Elsewher e: Yes Loca tion: Fernando torres [facility] odify By: dayna chambers DateTime : 08/22/19 11:15:00 AM Not Available Not Available Not Available Azo 95 mg tablet 06/21 completed Prescrib ed Elsewher e: Yes Loca tion: Fernando torres [facility] odify By: andrés morris DateTime : [...] Elsewher e: Yes Loca tion: Fernando torres [facility] odify By: dayna Torres ncounter DateTime : 05/30/20 11 03:36:51 PM Not Available Not Available Not Available Vitamin D3 10 mcg (400 unit) capsule 08/22 completed Prescrib ed Elsewher e: Yes Loca tion: Fernando torres [facility] odify By: andrés morris DateTime : [...] Elsewher e: Yes Loca tion: [facility] torres [facility] odify By: dayna germanunter DateTime : 06/02/20 11 09:30:00 AM Not Available Not Available Not Available Citracal Plus Bone Density Builder 300 mg-200 unit-13.5 mg tablet 11/18 completed Prescrib ed Elsewher e: Yes Loca tion: Fernando torres [facility] odify By: dayna Torres ncounter DateTime : 05/30/20 11 03:36:51 PM Not Available Not Available Not Available Zolpimist 5 mg/spray (0.1 mL) oral spray spray 2 spray by translin gual route every day into the mouth, over the tongue at bedtime 12/19 completed Prescrib ed Elsewher e: Yes Loca tion: Fernando torres [facility] odify By: finesse germanunter DateTime : 06/02/20 11 09:30:00 AM Not [...] and Address Organization Details Last Updated DateTime 06/04/2025 161.29 cm 31 kg/m2 38163.44 g 146/82 mm[Hg] Judy Schwab [facility] 06/04/2025 10:49:36 Social History Question Answer Notes LastModified by Organizat ion Details LastModified Time Tobacco Smoking Status Never Smoker Judy Schwab [facility] 12/26/2024 09:53:27 Do You Have An Advance Directive? Yes [email or web address] Information n ot available 07/24/2020 Are You [...] Or The Highest Degree You Have Received? [id number] Information not available 12/26/2024 Are There Any [...] Functional Status Question Answer Note LastModified by [employer] Details LastModified Time Do you use any illicit or recreational drugs? No Information not available 12/26/2024 What is your level of alcohol consumption? Occasional Information not available 12/26/2024 Are you currently employed? No Information not available 12/26/2024 Are you able to walk independently without assistance or assistive devices? YESWOREST Information not available 12/26/2024 Are you [...] anxious, or unable to sleep at night)? [id number] Information not available 12/26/2024 Family History Relationship [...] Hyperlipidemia Medical History Condition Response Arthritis Y High Cholesterol Y Breast Cancer Y Acid Reflux (GERD) Y Cancer Y Hypertension Y GI Problems Y Gynecological History Statement/Question Response Abnormal Pap [...] Last Pap Smear 12/19/2018 Sexual Problems? N Desired Control Method Hysterectom y LMP Unknown Obstetrics History GPAL:G 6 P 0 0 2 4 Type Value Spontaneous 2 Living 4 Total 6 Past Encounters Encounter ID Performer Location Encounter Start Date Encounter Closed Date Diagnosis/Indication Diagnosis SNOMED-CT Code Diagnosis ICD10 Code Diagnosis IMO Codes Diagnosis Note [id number] Alvarado Orozco MD [place] [address] [address] 05/17/2025 14:10:21 05/17/2025 15:21:32 Prolapse of female genital organs 15921603 N81.9 [id number] This patient is a 75-year-ol d female with pelvic organ prolapse. We have agreed to perform robotic assisted supracervi lakeisha hysterecto my and bilateral salpingo-o ophorectom y conjunctio n with a sacral colpopexy done by Dr. David Winston. Patient understand s the risks, benefits, and alternativ es. She has completed the informed consent process and is ready to proceed. [id number] Alvarado Orozco MD [place] [address] [address] 06/04/2025 10:23:00 06/04/2025 15:08:17 Postoperative visit [id number] Z48.89 [id number] this patient is a 75-year-ol d female presents for postop follow-up. She underwent laparoscop ic / robotic supracervi lakeisha hysterecto my with BSO for prolapse. It was done in conjunctio n with sacral spinous ligament fixation. An incidental endometria l cancer was observed. She has been referred to Gynecology Oncology for consultati on on further treatment. She has no complaints . Her incisions are clean dry and intact. She has no vaginal bleeding. To follow up as needed. Health Concerns Section Related Observation LastModified by Organization Detai ls LastModified Time None Recorded Concern Status LastModified by Organization Details LastModified Time None Recorded Payers Encounter Date Sequence Insurance Name Policy Number Policy Malin Covered Member ID Malin Member ID Guarantor Name 06/04/2025 1 [place] Cornelia Busby [id number] Cornelia Busby 06/04/2025 2 [employer]TRY [employer] (MEDICARE SUPPLEMENT) Cornelia Busby [id number] Cornelia Busby Notes Date Note Type Note Provider Name and Address Organization Details Recorded Time 06/04/2025 text/html this patient is a 75-year-old female presents for postop follow-up. She underwent laparoscopic / robotic supracervical hysterectomy with BSO for prolapse. It was done in conjunction with sacral spinous ligament fixation. An incidental endometrial cancer was observed. She has been referred to Gynecology Oncology for consultation on further treatment. She has no complaints. Her incisions are clean dry and intact. She has no vaginal bleeding. To follow up as needed. Alvarado Orozco MD [address], [place], [address], [place] [facility] 06/04/2025 15:05:55 OBGyn Episode No OBEpisode recorded.
--- OUTSIDE RECORDS SUMMARY | 2025-07-02 17:12 | XMS_ITS | Encounter Summary ---
Author Organization [facility] Address On license of [facility] [place] [address] Care Team Providers Care Manager Student Services Name Role Phone Meera Hurt MD Primary Care Provider [phone] Felipe Day MD Unavailable [phone] Encounter Details Date Type Department Care Team (Late st Contact Info) Description 12/06/2019 Abstract [facility], [address] [id number] Jan Quintana MA Social History Tobacco Use [...] Description 03/15/2026 9:30 AM CDT Office Visit [facility] [address] [place] [id number] Mesha Deras PA [address] [facility], [address] [place], [place] [phone] Albaro Drew MD Three [facility]. [address] [place], [place] [id number] documented as of this encounter Procedures Procedure [...] on filedocumented in this encounter Care Teams Manager Student Services Relationship Specialty Start Date End Date Meera Hurt MD PCP - General FAMILY PRACTICE 07/12/18 Felipe Day MD GASTROENTEROLOGY 08/16/18 documented as of this encounter
--- OUTSIDE RECORDS SUMMARY | 2025-07-02 17:12 | XMS_ITS | Encounter Summary ---
Author Organization [facility] Address Counts include 234 beds at the [facility] [place] [address] Care Team Providers Care Cabinet Worker Name Role Phone Meera Hurt MD Primary Care Provider [phone] Felipe Day MD Unavailable [phone] Encounter Details Date Type Department Care Team (Latest Contact Info) Description 01/07/2023 SingWho Message Enc [facility] - [facility] [address] [facility] [place] [phone] Annamarie Lugo NP [address] [facility]. [address] [place] [address] Medication update Social History Tobacco [...] Description 03/15/2026 9:30 AM CDT [facility] [address] [place] [phone] Mesha Deras PA [address] [facility], [address] [place], [place] [id number] Albaro Drew MD Three [facility]. [address] [place], [place] [id number] documented as of this encounter Visit Diagnoses Not on filedocumented in this encounter Care Teams Cabinet Worker Relationship Specialty Start Date End Date Meera Hurt MD PCP - General FAMILY PRACTICE 07/12/18 Felipe Day MD GASTROENTEROLOGY 08/16/18 documented as of this encounter
--- OUTSIDE RECORDS SUMMARY | 2025-07-02 17:12 | XMS_ITS | Clinical Summary ---
Author Organization [facility] Address [address] [facility] [place] [address] Care Team Providers Care Research Nurse Practitioner Name Role Phone Meera Hurt MD Primary Care Provider [phone] Source Comments [facility],non-owned Affiliates and Associated Physician Practices is amultiple site organization consisting of ambulatory clinics and hospital sitesin [place], [place], [place]. This disclosure is being madepursuant to the Care Everywhere program and may not contain all information available regarding this patient. Last updated 18.[employer] Allergies Active Allergy Reactions Criticality Noted Date [...] Active vitamin D, ergocalciferol, (DRISDOL) 1.25 MG (10917 UT) capsule 1 Active famotidine (PEPCID) 20 [...] on file Legal Sex Female 2:05 PM [employer] Gender Identity Not on file Sexual Orientation Not on file Last Filed Vital Signs Vital Sign Reading Time Taken Comments Blood Pressure 149/81 08/15/2019 9:41 AM [employer] Pulse 67 08/15/2019 9:41 AM [employer] Temperature 36.3 C (97.4 F) 08/15/2019 9:41 AM [employer] Respiratory Rate 18 08/15/2019 9:41 AM [employer] Oxygen Saturation 98% 08/15/2019 9:41 AM [employer] Inhaled Oxygen Concentration - - Weight 77.6 kg (171 lb) 08/15/2019 5:58 AM [employer] Height 162.6 cm (5' 4) 08/15/2019 5:58 AM [employer] Body Mass Index 29.35 08/15/2019 5:58 AM [employer] Plan of Treatment Health Maintenance Due Date Last Done Comments BONE DENSITY TESTING 1950 MEDICARE AWV 12 MONTHS 1950 HEPATITIS C SCREENING 01/08/1966 DTAP/TDAP/TD VACCINES (1 - Tdap) 01/12/1967 PNEUMOCOCCAL VACCINE 50+ (1 of 1 - PCV) 01/12/1998 ZOSTER VACCINE (1 of 2) 01/12/1998 Respiratory Syncytial Virus (RSV) Vaccine Pt: or over 60 yrs (1 - 1-dose 75+ series) 01/12/2023 DEPRESSION SCREENING 08/09/2024 COVID-19 VACCINE (3 - 2024-2 6 season) 2025 10/03/2020, 09/05/2020 INFLUENZA VACCINE (#1) 2025 05/26/2019 HEPATITIS B [...] Insurance MEDICARE SUPPLEMENT PAYOR GENERIC MEDICARE MEDICARE [facility] INSURANCE MEDICARE SUPP SELF PAY NO INSURANCE Member Subscriber Plan / Payer (Ef fective for All Dates) Name:Nabor uBsby Member ID:Not on file Relation to Subscriber:Not on file Name:NABOR BUSBY Subscriber ID:Not on file (Home) Address: [address] [place] [id number] Payer ID:Not on file Group ID:Not on file Type:Self Pay Address: [place], [place] MEDICARE Care Teams Research Nurse Practitioner Relationship Specialty Start Date End Date Meera Hurt MD [address] [place] [address] PCP - General Family Medicine 05/09/19
--- OUTSIDE RECORDS SUMMARY | 2025-07-02 17:12 | XMS_ITS | Encounter Summary ---
Author Organization [facility] Address [address] [place] [address] Phone Care Team Providers Care Medical Genetics Director Name Role Phone Meera Hurt MD Unavailable [phone] Meera Hurt MD Primary Care Provider [phone] Janeen Cervantes MD Unavailable [phone] Encounter Details Date Type Department Care Team (Late st Contact Info) Description 06/22/2025 Results Follow-Up [facility] Medicine Surgery [address] [facility] [address] [place] [address] Janeen Cervantes MD [address] [address] Surgical pathology Social History Tobacco Use Types Packs/Day Years [...] on file Legal Sex Female 9:52 AM [employer] Gender Identity Not on file Sexual Orientation Not on file documented as of this encounter Functional Status * BP Location Answer Date of Assessment Author Right arm 06/25/2025 10:35 AM [employer] Batsheva Morelos * BP Location Answer Date of Assessment Author Right arm 06/25/2025 10:35 AM [employer] Batsheva Morelos documented as of this encounter Plan of Treatment Not on file documented as of this encounter Goals Goal Patient Goal Type Associated Problems Recent Progress Patient-Stated? Author Autogenera alvin Goal Care Plan Autogenerated Problem No Oswald Woodard RN documented as of this encounter Visit Diagnoses Not on filedocumented in this encounter Additional Health Concerns Active Problems Noted Date Diagnosed Date Autogenerated Problem 05/11/2025 documented as of this encounter Care Teams Medical Genetics Director Relationship Specialty Start Date End Date Meera Hurt MD PCP - General Family Medicine 03/21/25 Meera Hurt MD Referring Physician Family Medicine 03/12/25 Janeen Cervantes MD [phone] [address] Surgeon Surgical Oncology 06/18/25 documented as of this encounter
--- OUTSIDE RECORDS SUMMARY | 2025-07-02 17:12 | XMS_ITS | Clinical Summary ---
Author Organization [facility] Address [address] [place] [address] Care Team Providers Care Interactive Media Director Name Role Phone Meera Hurt MD Unavailable [phone] Meera Hurt MD Primary Care Provider Janeen Cervantes MD Unavailable [phone] Allergies Active Allergy Reactions Criticality Noted Date Comments Codeine Unknown 06/25/2025 Hydrocodone-Acetaminop hen Other (See comments) 08/15/2019 Couldn't sleep Iodine Unknown 06/05/2025 Iodine and/or iodine compound (substance)/ Iodine r/t shellfish allergy Has not actually had Iodine Lisinopril Cough Low 07/24/2022 Shellfish Nausea And Vomiting 08/15/2019 Medications ergocalciferol (VITAMIN D) 50,000 unit capsuleIndicatio ns:Vitamin D Deficiency Take 1 capsule (50,000 Units total) by mouth once a week Saturdays02/04/20 21 Active famotidine (PEPCID) 20 mg tabletIndication s:gastroesophage al reflux disease Take 1 tablet (20 mg total) by mouth 2 (two) times a day Active losartan (COZAAR) 25 mg tabletIndication s:hypertension Take 1 tablet (25 mg total) by mouth every morning 07/24/20 22 Active melatonin tabletIndication s:Insomnia Take 1 tablet (1 mg total) by mouth nightly Active metoprolol XL (TOPROL-XL) 25 mg extended release tabletIndication s:Heart Palpatations Take 1 tablet (25 mg total) by mouth every morning 06/23/20 19 Active simvastatin (ZOCOR) 20 mg tabletIndication s:hyperlipidemia Take 1 tablet (20 mg total) by mouth nightly 06/04/20 18 Active amitriptyline (ELAVIL) 25 mg tabletIndication s:gastroesophage al reflux disease Take 1 tablet (25 mg total) by mouth nightly Active carboxymethylcel lulose-glycern (Refresh Optive) 0.5-0.9 % dropsIndications :Dry Eye Administer 1 each into both eyes 2 (two) times a day Active docusate sodium (COLACE) 100 mg capsuleIndicatio ns:constipation Take 1 capsule (100 mg total) by mouth 2 (two) times a day Active calcium citrate-vitamin D3 (CITRACAL+D) 315 mg-5 mcg (200 unit) per tabletIndication s:Osteopenia Take 1 tablet by mouth 2 (two) times a day Active acetaminophen (TYLENOL) 500 mg tabletIndication s:Pain Take 1 tablet (500 mg total) by mouth every 6 (six) hours as needed for pain Just had Hysterectomy a week ago Active lisinopriL (PRINIVIL,ZESTRI L) 2.5 mg tablet Take by mouth daily Active oxyCODONE (ROXICODONE) 5 mg immediate release tabletIndication s:Pain Take 1 tablet (5 mg total) by mouth every 4 (four) hours as needed for pain 10 tablet 06/18/20 25 025 Discontin ued(Patie nt Reported) Active Problems Problem Noted Date Diagnosed Date Anxiety 06/25/2025 Arthritis 06/25/2025 Fatigue 06/25/2025 Insomnia 06/25/2025 Pure hypercholesterolemia 06/25/2025 Sacroiliac pain 06/25/2025 Vitamin D deficiency 06/25/2025 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 Continue lisinopril 10 mg daily. Hyperlipidemia, mixed 07/18/2021 Overview (06/25/2025): Last Assessment & Plan: Her total cholesterol has been between 160 and 180 per her report. We can continue to monitor and pursue lifestyle changes. She is currently not on statin therapy. Palpitations 07/18/2021 Overview (06/25/2025): Last Assessment & Plan: Her palpitations are well controlled. Continue metoprolol succinate 25 mg daily. Impingement syndrome of right shoulder Overview (06/25/2025): Last Assessment & Plan: Celebrex was giving relatively good relief until she forgot to take it for 3 days. She also stopped doing her exercises. Increased shoulder discomfort. Patient will get back on her Celebrex. Would like to avoid steroid injections. If pain increases consider steroid injection. Further evaluation with MRI if needed. Neck pain 04/01/2021 Right shoulder pain 07/09/2020 Bilateral hip pain 11/24/2019 Tear of meniscus of knee 05/12/2019 Knee pain, right 01/25/2019 Overview (06/25/2025): Physical Therapy Visit Note: Patient Name: Cornelia Busby Diagnosis: No primary diagnosis found. SUBJECTIVE OBJECTIVE Treatment provided today: ASSESSMENT PLAN Abdominal bloating 11/18/2017 Overview (06/25/2025): Abdominal distension (gaseous);Recorded Elsewhere: No Location: [facility] Source: EHR Chronic: N Practice ID: [id number] Billable Time: 08:45:00 AM Atrophic vaginitis 06/20/2014 Overview (06/25/2025): Vaginitis Atrophic Perimenopausal;Practice ID: [id number] Leukocytosis 08/21/2012 Overview (06/25/2025): LEUKOCYTOSIS NOS;Recorded Elsewhere: No Location: [facility] Source: EHR Chronic: N Practice ID: [id number] Billable Time: 11:15:00 AM Michael hematuria 06/07/2012 Overview (06/25/2025): MICROSCOPIC HEMATURIA;Recorded Elsewhere: No Location: [facility] Source: EHR Chronic: N Practice ID: [id number] Billable Time: 08:45:00 AM GROSS HEMATURIA;Recorded Elsewhere: No Location: [facility] Source: EHR Chronic: N Practice ID: [id number] Billable Time: 11:15:00 AM Encounters Date Type Department Care Team Description 06/25/2025 10:30 AM VAMP MARKER Office Visit [facility] Medicine Obstetrics and Gynecology [facility] Advanced Medicine 13th [place] [address] [place] [address] Joe Hadley MD Endometrioid adenocarcinoma of ovary, unspecified laterality (HCC) (Primary Dx) 06/25/2025 Telephone [facility] Medical Office Building 2 Radiation Oncology [address] [place] [address] Mehnaz Vaughn MA 06/22/2025 Telephone [facility] Medicine Surgery [address] [place] [phone] Natasha Mon RN 06/22/2025 Orders Only [facility] Medicine Surgery [address] [place] [phone] Janeen Cervantes MD Ductal carcinoma in situ (DCIS) of left breast (Primary Dx) 06/22/2025 Telephone [facility] Medicine Surgery [address] [place] [phone] Natasha Mon RN 06/22/2025 Results Follow-Up [facility] Surgery [address] [place] [phone] Janeen Cervantes MD Surgical pathology 06/18/2025 7:30 AM VAMP MARKER - 06/18/2025 8:45 AM VAMP MARKER Surgery [facility] ([facility]) [address] [place] [phone] Janeen Cervantes MD MASTECTOMY PARTIAL 06/18/2025 7:24 AM VAMP MARKER Anesthesia Event [facility] Operating [facility] ([facility]) [address] [place] [phone] Eddie Crabtree MD Gardner, Kari Elizabeth, NP 06/18/2025 6:45 AM VAMP MARKER - 06/18/2025 11:59 PM VAMP MARKER Hospital Encounter [facility] Breast [facility] ([facility]) [address] [place] [phone] Ductal carcinoma in situ (DCIS) of left breast Discharge Disposition: Discharge to home or self care 06/18/2025 5:29 AM VAMP MARKER - 06/18/2025 10:17 AM VAMP MARKER Hospital Encounter [facility] ([facility]) [address] [place] [phone] Janeen Cervantes MD Ductal carcinoma in situ (DCIS) of left breast Discharge Disposition: Discharge to home or self care 06/15/2025 [facility] Surgery [address] [place] [phone] Janeen Cervantes MD 05/23/2025 7:41 AM CDT - 05/23/2025 11:59 PM CDT Hospital Encounter [facility] - Breast Imaging [address] [place] [address] Ductal carcinoma in situ (DCIS) of left breast Discharge Disposition: Discharge to home or self care 05/18/2025 Results Follow-Up [facility] Advanced Medicine Breast [facility] ([facility]) [address] [place] [phone] Gertrudis Sultana RN Surgical pathology 05/16/2025 10:06 AM CDT - 05/16/2025 11:59 PM CDT Hospital Encounter [facility] Radiology [facility] ([facility]) [address] [place] [address] Ductal carcinoma in situ (DCIS) of left breast; Abnormal MRI, breast Discharge Disposition: Discharge to home or self care 05/16/2025 6:45 AM CDT - 05/16/2025 11:59 PM CDT Hospital Encounter [facility] Breast [facility] ([facility]) [address] [place] [address] Ductal carcinoma in situ (DCIS) of left breast; Abnormal MRI, breast Discharge Disposition: Discharge to home or self care 05/11/2025 11:45 AM CDT Office Visit [facility] Surgery [address] [place] [phone] Janeen Cervantes MD Ductal carcinoma in situ (DCIS) of left breast (Primary Dx) 05/08/2025 8:56 AM CDT - 05/08/2025 11:59 PM CDT Hospital Encounter [facility] ([facility]) [address] [place] [address] Ductal carcinoma in situ (DCIS) of left breast Discharge Disposition: Discharge to home or self care 05/08/2025 Telephone [facility] Advanced Medicine Breast [facility] ([facility]) [address] [place] [phone] Myrna Rodriguez RN 05/08/2025 Results Follow-Up [facility] Medicine Surgery [address] [place] [phone] Subha Fabian PA MRI Breast Bilateral W WO Contrast 04/19/2025 Results Follow-Up [facility] Medicine Surgery [address] [place] [phone] Subha Fabian PA Surgical pathology 04/18/2025 1:40 PM CDT - 04/18/2025 11:59 PM CDT Hospital Encounter [facility] - Breast Imaging [address] [place] [address] Abnormal mammogram Discharge Disposition: Discharge to home or self care 04/18/2025 1:21 PM CDT - 04/18/2025 11:59 PM CDT Hospital Encounter [facility] - Breast Imaging [address] [facility] Floor 8 [place] [address] Abnormal mammogram Discharge Disposition: Discharge to home or self care 04/18/2025 8:30 AM CDT Office Visit [facility] Surgery [facility] 8 [place] [phone] Subha Fabian PA Abnormal mammogram (Primary Dx) 04/17/2025 7:29 PM CDT - 04/17/2025 11:59 PM CDT Hospital Encounter [facility] Radiology [facility] ([facility]) [address] [place] [phone] Mass of left breast, unspecified quadrant; Abnormal mammogram Discharge Disposition: Discharge to home or self care 04/17/2025 Orders Only [facility] Breast [facility] ([facility]) [address] [place] [phone] ProviderKan MD 04/13/2025 Orders Only [facility] Medicine Surgery [address] [place] [phone] Subha Fabian PA from Last 3 Months Immunizations Immunization Administration Dates Next Due Hep B, Adolescent or Pediatric 12/30/1998,1997,04/02/1998 Influenza, Quadrivalent, Hig h Dose, Preservative Free, Intrr 05/17/2023,05/19/2022,05/08/2021,05/07 Influenza, Quadrivalent, Spl it, Preservative Free, Intramuscular 05/24/2014 Influenza, Trivalent, Adjuva nted, Intramuscular 05/23/2018 Influenza, Trivalent, High D ose, Split, Preservative Free, Intramuscular 05/30/2024,05/26/2019,05/02/2017,06/07,05/28/2015 Pneumococcal Conjugate PCV 13 05/23/2018 Pneumococcal Polysaccharide PPV23 05/24/2019 Tdap 06/09/2016 ZOSTER LIVE 03/04/2013 ZOSTER Recombinant 02/22/2020,10/10/2019 Surgical History Surgery Date Site/Laterality Comments GALLBLADDER SURGERY 08/09/2017 - 08/08/2018 BREAST BIOPSY 04/18/2025 Left BREAST BIOPSY 05/16/2025 Right ESOPHAGOGASTRODUODENOSCOPY 11/03/2023 Colonoscopy with polypectomy performed by Oj Bills MD at [facility] OR COLONOSCOPY 06/18/2005 Dr. Day tubular adenoma in descendin colon 1 cm. Repeat in 3 yrs COLONOSCOPY 09/19/2018 Dr. Bills normal findings with mild internal hemrrhoids, Repeat in 2023 KNEE ARTHROSCOPY 08/09/2019 - 08/08/2020 HYSTERECTOMY W/ BILATERAL SALPINGOOPHORECTOMY 05/28/2025 N/A for prolapsed uterus (found stage 1 cancer of uterus) CATARACT EXTRACTION W/ INTRA OCULAR LENS IMPLANT 09/09/2024 - 10/06/2024 Left CATARACT EXTRACTION W/ INTRA OCULAR LENS IMPLANT 09/09/2024 - 10/06/2024 Right TUBAL LIGATION 08/09/1983 - 08/08/1984 DILATION AND CURETTAGE OF UTERUS TONSILLECTOMY AND ADENOIDECTOMY Medical History Medical History Date Comments Hypertension Peptic ulcer disease Arthritis Endometrial carcinoma (HCC) stag e 1 found after hysterectomy Heart palpitations High cholesterol GERD (gastroesophageal reflux disease) Family History Medical History Relation Name Comments liver failure Brother 1 Parkinsonism Brother 2 levoy body Brother 2 Breast cancer Cousin dementia Father pituitary tumor Father glioblas Mother Anesthesia problems Neg Hx Relation Name Status Comments Brother 1 Brother 2 Alive Cousin Alive Father Mother Sister Alive Social History Tobacco Use Types Packs/Day Years Used Date Smoking Tobacco: Never Passive Smoke Exposure: Never Smokeless Tobacco: Never Tobacco Cessation:Counseling Given: Not Answered Alcohol Use Standard Drinks/Week Comments Yes 0 [...] on file Legal Sex Female 9:52 AM VAMP MARKER Gender Identity Not on file Sexual Orientation Not on file Obstetrics History Para Term AB IAB SAB Ectopic Multiple Livin g Live Births 6 1 Date Outcome GA Total Labor Labor/2nd/3rd Weight Sex Type Anes PTL Sujata A1 A5 Name Clin Last Filed Vital Signs Vital Sign Reading Time Taken Comments Blood Pressure 168/92 06/25/2025 10:35 AM VAMP MARKER Pulse 82 06/25/2025 10:35 AM VAMP MARKER Temperature 36.3 C (97.3 F) 06/25/2025 10:35 AM VAMP MARKER Respiratory Rate 16 06/25/2025 10:35 AM VAMP MARKER Oxygen Saturation 97% 06/25/2025 10:35 AM VAMP MARKER Inhaled Oxygen Concentration - - Weight 80.7 kg (178 lb) 06/25/2025 10:35 AM VAMP MARKER Height 159.3 cm (5' 2.72) 06/25/2025 10:[address] Body Mass Index 31.82 06/25/2025 10:35 AM VAMP MARKER Plan of Treatment Health Maintenance Due Date Last Done Comments Depression Screening 1950 Hepatitis C Screening 1950 Osteoporosis Screening-Bone Density Scan 1950 Well Visit 65+ 01/12/2013 Covid-19 Vaccine (2024-2 6 season) 2025 06/13/2021, 10/03/2020, 09/05/2020 Influenza Vaccine (#1) 2025 , 05/17/2023, 05/19/2022, Additional history exists DTaP/Tdap/Td Vaccine (2 - Td or Tdap) 06/09/2026 06/09/2016 Fall Risk Assessment 06/18/2026 06/18/2025 Hepatitis B Screening Completed 12/30/1998 , 05/13/1998, 04/02/1998 Pneumococcal vaccine 65+ Completed 05/24/2019, 05/09 Zoster Vaccine Completed 02/22/2021, 03/10/2020, 02/22/2020, Additional history exists Goals Goal Patient Goal Type Associated Problems Recent Progress Patient-Stated? Author Autogenera alvin Goal Care Plan Autogenerated Problem No Oswald Woodard, RN Medical Devices Implanted Type Area Delivery Analyst Device Identifier Shelf Expiration Date Model / Serial / Lot Intraocular Lens Implant-Left Left: Eye Intraocular Lens Implant-Right Right: Eye [employer] Marker Biospy Site Mini Cork Shape Deployment Device Titanium Securmark Eviva 13cm [id number] - [id number] Implanted:Qty: 1 on 04/18/2025 by Monet Finley MD at [facility] Left: Breast [employer] Partnership [id number] 10/31/2025 SMARK-EVIV A-13 / / [id number] Hologic Limited Partnership Trimark Mri Guided Rigid Deployment Device Cork Marker Breast Trimark Td 13-Mr - [id number] Implanted:Qty: 1 on 05/16/2025 at [facility] Right: Breast [employer] Partnership [id number] 03/08/2026 TRIMARK TD 13-MR / / [id number] [employer] Inc Marker Tissue Needle Delivery Spiral Capped Seed Radiopaque Vp Customer Service Stainless Steel Low Nickel Sentimag [id number] - [id number] Implanted:Qty: 1 on 05/23/2025 by Akua Martinez MD at [facility] Left: Breast [employer] Partnership [id number] 08/08/2026 [id number] / / [id number] [employer] Marker Tissue Needle Delivery Spiral Capped Seed Radiopaque Senior Living Stainless Steel Low Nickel Sentimag [id number] - [id number] Implanted:Qty: 1 on 05/23/2025 by Oswald Bautista MD at [facility] Left: Breast [employer] [id number] 08/08/2026 [id number] / [id number] Procedures Procedure Name Priority Date/Time Associated Diagnosis Comments RADIOLOGIC EXAMINATION OF SURGICAL SPECIMEN Schedule Routine, Read Routine (OP Routine) 06/18/2025 12:45 PM VAMP MARKER Ductal carcinoma in situ (DCIS) of left breast SURGICAL PATHOLOGY Routine 06/18/2025 8: 01 AM VAMP MARKER Ductal carcinoma in situ (DCIS) of left breast MA AN PROCEDURE PLACEHOLDER Routine 06/18/2025 7:51 AM VAMP MARKER MA AN ELECTIVE ENDOTRACHEAL AIRWAY Routine 06/18/2025 7:51 AM VAMP MARKER MAGNETIC SEED LOCALIZATION LUMPECTOMY 06/18/2025 7:28 AM VAMP MARKER Ductal carcinoma in situ (DCIS) of left breast Special Needs sentimag, magseed instruments MASTECTOMY PARTIAL 06/18/2025 7: 28 AM VAMP MARKER Ductal carcinoma in situ (DCIS) of left breast Special Needs sentimag, magseed instruments MAMMO GUIDED MAGSEED LOCALIZATION LEFT Schedule Routine, Read Routine (OP Routine) 05/23/2025 10:34 AM CDT Ductal carcinoma in situ (DCIS) of left breast BRIAN POST CLIP PLACEMENT RIGHT Schedule Routine, Read Routine (OP Routine) 05/16/2025 1:30 PM CDT Ductal carcinoma in situ (DCIS) of left breast Abnormal MRI, breast MRI GUIDED BREAST BIOPSY RIGHT Schedule Routine, Read Routine (OP Routine) 05/16/2025 12:48 PM CDT Ductal carcinoma in situ (DCIS) of left breast Abnormal MRI, breast SURGICAL PATHOLOGY Routine 05/16/2025 12:35 PM CDT Ductal carcinoma in situ (DCIS) of left breast Abnormal MRI, breast MRI BREAST BILATERAL W WO CONTRAST Schedule Routine, Read Routine (OP Routine) 05/08/2025 10:01 AM CDT Ductal carcinoma in situ (DCIS) of left breast BRIAN POST CLIP PLACEMENT LEFT Schedule Routine, Read Routine (OP Routine) 04/18/2025 3:05 PM CDT Abnormal mammogram STEREOTACTIC BREAST BIOPSY LEFT Schedule Routine, Read Routine (OP Routine) 04/18/2025 2:49 PM CDT Abnormal mammogram SURGICAL PATHOLOGY Routine 04/18/2025 2: 36 PM CDT Abnormal mammogram BREAST IMAGING MG DIAGNOSTIC OUTSIDE CONSULT Routine 04/17/2025 7:29 PM CDT Mass of left breast, unspecified quadrant Abnormal mammogram from Last 3 Months Results * Radiologic Examination of Surgical Specimen (06/18/2025 12:45 PM VAMP MARKER) Anatomical Region Laterality Modality Breast N/A Mammography 06/18/2025 1:50 PM VAMP MARKER Impressions 06/18/2025 2:28 PM VAMP MARKER FINDINGS/IMPRESSION: A LEFT surgical specimen was received from the operating room and was imaged using digital radiography. The lesion of interest is included at the edge of the surgical specimen. Included within the surgical specimen the mini Cork tissue marker and 2 magnetic seeds. These findings were communicated to the surgeon. Dictated by: Gi Jaquez MD The radiology attending physician has personally reviewed this study, and had reviewed and/or edited this written report and agrees with it. Electronically signed by: eMe Webb M.D. Narrative 06/18/2025 2:28 PM VAMP MARKER EXAMINATION: RADIOLOGIC EXAMINATION OF LEFT SURGICAL SPECIMEN HISTORY: 75-year-old female with left breast DCIS status post Magseed bracket localization undergoing breast conservation therapy. Janeen Cervantes MD IMG MAMMO PROCEDURES Fi nal Result * Surgical pathology (06/18/2025 8:01 AM VAMP MARKER) Tissue (Breast, excisional biopsy/ partial mastectomy) 06/18/2025 8:01 AM VAMP MARKER Tissue specimen (specimen) (Breast Additional Margin) 06/18/2025 8:04 AM VAMP MARKER Narrative PATHOLOGY [facility] - 06/22/2025 10:25 AM VAMP MARKER EPIC results best viewed via link to PDF [facility] [place] [address] Note to Patients: This report may contain a detailed description of human tissue sent by a health care provider to the laboratory for pathologic evaluation. The content of this report is essential for diagnosis and may provide important critical findings. This information may be unfamiliar to patients to review without a medical professional present. It is advised that the patient review this report in the presence of a health care provider who can answer questions and explain the details. SURGICAL PATHOLOGY REPORT FINAL WITH ADDENDUM Patient Name: CORNELIA BUSBY Gender: F : 1950 (Age: 75) Address: [address] [place] [phone] Hospital #: [id number] Taken:06/18/2025 Received:06/18/2025 Reported: 06/22/2025 Patient Type: [facility] Service: Surgery Location: Physician(s): Natalie Hammond M.D. Julie A. Margenthaler, M.D. Diagnosis: A. Breast, left, partial mastectomy - Ductal carcinoma in situ (DCIS) - Greatest estimated extent = 31 mm - Nuclear grade = 2/3 - Solid and cribriform patterns with comedonecrosis and calcifications - Surgical margins negative but close: nearest = <1mm, inferior (see comment) - Biopsy site changes - See synoptic report B. Breast, left, new margin around tumor, excision - Benign breast tissue - No evidence of atypia or malignancy 06/22/2025 08:47 By this signature, I attest that the above diagnosis is based upon my personal examination of the slides(and/or other material indicated in the diagnosis). Vicenta Wilson MD Report Electronically Reviewed and Signed Out By Vicenta Wilson MD 06/22/2025 10:25:23 Microscopic Description and Comment: Microscopic examination substantiates the above cited diagnosis. The final margins in the synoptic report incorporate the findings from parts A and B. The attending pathologist personally reviewed one or more Faxitron radiograph(s) taken for the purpose of radiographic/pathologic correlation, including localizing clip(s) and/or calcification(s). The radiographic findings were correlated with the histologic findings. The areas of interest were embedded for histologic examination. The imaging findings support the above diagnosis. Katharine Horton D.O. History: [place] but well The patient is a 75-year-old female with DCIS of the left breast. Operative procedure: partial mastectomy Specimen(s) Received: A: Left partial mastectomy short stitch. superior long stitch lateral B: Left new margin around tumor stitch guzman new margin Gross Description: Received in two formalin jars labeled with the patient's identifiers. A. Labeled left partial mastectomy short stitch superior, long stitch lateral -Collected: 800 on 06/18/25 -Received: 831 on 06/18/25 -Placed in formalin: 831 on 06/18/25 -Cold ischemic time: 31 minutes -Formalin Fixation time: 33.5 hours -Specimen dimensions: Medial to Lateral: 7.5 cm Superior to Inferior: 3.2 cm Anterior to Posterior: 5.6 cm -Skin dimensions: No skin included -Weight: 57.9 g -Orientation: Short stitch superior, long stitch lateral - Margins inked: Superior: Blue Inferior: Green Anterior: Yellow Posterior: Black -Sectioned: Medial to lateral -Number of slices: 12 -Gross findings: Fibrofatty tissue with no mass or lesion. A clip is located in slice 7. A Mag seed is also located in slice 7, and a Mag seed is located in slice 10. -Distance from surgical margin: 0.8 cm inferior Superior: 2.2 cm Inferior: 0.8 cm Anterior: 3.0 cm Posterior: 1.8 cm -Specimen radiographed: Yes -Radiograph findings: Mag seed in slice 7 and slice 10. Clip in slice 7 -Diagram: Yes Summary of sections: A1 Slice 7, area of clip A2 Slice 7, posterior to clip A3 Slice 7, anterior to clip A4 Slice 6, medial to the clip A5 Slice 8, lateral to clip A6 Slice 10, area of Mag seed A7 Slice 4 A8 Slice 3 A9 Slice 2 A10-A11 Slice 1, medial tip, radially sectioned A12-A13 Slice 12, lateral tip, radially sectioned Jar: 2 B. Labeled left new margin around tumor stitch guzman new margin is a piece of fibrofatty tissue with a stitch in it. The tissue measures 3.5 by 2.7 by 0.8 cm. No mass or lesion is felt. The new margin designated by the stitch is inked blue and the specimen is perpendicularly sectioned. In 3 cassettes as follows: B1-B3 Serial sectioning of new margin Jar 0. gp06/19/2025 16:03 Gross Resident:Katharine Horton, D.O. CANCER CASE SUMMARY FOR DUCTAL CARCINOMA IN SITU (DCIS) OF THE BREAST Procedure: Excision (less than total mastectomy) Specimen laterality: Left Tumor site: Upper outer quadrant Size (extent) of DCIS: Greatest dimension (using gross & microscopic evaluation): at least 31 mm Histologic type: Ductal carcinoma in situ Architectural patterns: Cribriform Solid Nuclear grade: Grade 2 (intermediate) Necrosis: Present, central (expansive c omedo necrosis) Margins: All margins negative for DCIS Greater than 5mm Regional lymph nodes: Not applicable (no regional lymph nodes submitted or found) Pathologic stage classification (pTNM, AJCC 8th Edition): TNM descriptors: Not applicable Primary tumor (pT): pTis (DCIS): Ductal carcinoma in situ Regional lymph nodes (pN): Not applicable pN Category: pN not assigned (no nodes submitted or found) pM Category: Distant Site(s) Involved, if applicable: Not applicable Breast Biomarker Testing performed on Previous Case: [id number] Estrogen Receptor (ER): Positive Benjamin score 8/8 Mircocalcifications: Present in DCIS The pathologic stage assigned here should be regarded as provisional, and may change after integration of clinical data not provided with this report. CAP VERSION: Breast DCIS 4.4.0.0 By this signature, I attest that the above diagnosis is based upon my personal examination of the slides(and/or other material). Addenda/Procedures Addendum Ordered:06/26/2025Status:Signed OutAddendum Complete:06/26/2025y:Isaiah Epstein DOAddendum Signed Out:06/27/2025 Addendum Comment A request for Molecular Archived Tissue Testing was received, which is to be performed on tissue from the attached case. The report, slides and blocks for the case were retrieved from archives. The pathologist whose signature appears below reviewed the original pathology report, examined H&E slides, and selected the blocks appropriate to the specifications of the ordered molecular analysis. Materials were forwarded to [facility] where the DCISion RT test will be performed. An addendum report will be issued when the results of this molecular test are available. By this signature, I attest that the above diagnosis is based upon my personal examination of the slides(and/or other material indicated in the diagnosis). Isaiah Epstein DOReport Electronically Reviewed and Signed Out By Isaiah Epstein DO 06/27/2025 08:23:20 The DCISionRT test was performed at [facility], [address] [place] [address]. The performance characteristics of some immunohistochemical stains, fluorescence in-situ hybridization tests and immunophenotyping by flow cytometry cited in this report (if any) were determined by the Surgical Pathology and Flow Cytometry Departments at [facility] as part of an ongoing coding quality coordinator program and in compliance with federally mandated regulations drawn from the Clinical Laboratory Improvement Act of 1988 (CLIA '88). Some of these tests rely on the use of analyte specific reagents and are subject to specific labeling requirements by the US Food and Drug Administration. Such diagnostic tests may only be performed in a facility that is certified by the Department of Health and Human Services as a high complexity laboratory under CLIA '88. The FDA has determined that such clearance or approval is not necessary. This test is used for clinical purposes. It should not be regarded as investigational or for research. Nevertheless, federal rules concerning the medical use of analyte specific reagents require that the following disclaimer be attached to the report: This test was developed and its performance characteristics determined by the Surgical Pathology and Flow Cytometry Departments of [facility]. It has not been cleared or approved by the U. S. Food and Drug Administration. IMAGES AND SCANNED DOCUMENTS, IF INCLUDED, ONLY VIEWABLE IN PDF VERSION OF REPORT us Janeen Cervantes MD LAB PATHOLOGY ORDERABLE S Final Result PATHOLOGY [facility] 3rd Floor [place], [place] [phone] * MA AN ELECTIVE ENDOTRACHEAL AIRWAY, MA AN PROCEDURE PLACEHOLDER (06/18/2025 7:51 AM VAMP MARKER) Narrative Jose Quintero CRNA - 06/18/2025 7:51 AM VAMP MARKER Jose Quintero CRNA 06/18/2025 7:51 AM Airway Patient location: OR Urgency: elective Date/time: 06/18/2025 7:51 AM Indications for airway management: anesthesia Difficult airway: no Staff: Supervising provider: Eddie Crabtree MD Placed by: AUTOMOTIVE STARTER REPAIRER: Jose Quintero CRNA Emergent airway documentation: Risks and benefits discussed: yes Consent obtained: yes Consent given by: patient Airway prep: Preoxygenated: yes Patient position: sniffing Spontaneous ventilation during airway: absent Sedation level during airway: GA Final airway details: Final airway type: endotracheal airway Tube type: ETT ETT size: 7.0 mm Cuffed: yes Technique used for successful ETT placement: video laryngoscopy Insertion site: oral Blade type: Tiana Video blade type: Saldaña Blade size: 3 Cormack-Lehane (video): grade I - full view of glottis Initial cuff pressure: 26 cm H2O Cuff inflated with: air ETT to lips: 21 cm Placement verified by: CO2 detection Airway secured with: silk tape Number of attempts: 1 us Eddie Crabtree MD ANESTHESIA ORDERABLES Final Resu lt * Mammo Guided Magseed Localization Left (05/23/2025 10:34 AM CDT) Anatomical Region Laterality Modality Breast Left Mammography 05/23/2025 12:0 7 PM CDT Impressions 05/23/2025 12:07 PM CDT Successful bracketed Magseed localization of the area of interest within the LEFT breast using mammographic guidance. Electronically signed by: Akua Martinez M.D. Narrative 05/23/2025 12:07 PM CDT EXAMINATION: LEFT BREAST MAGSEED LOCALIZATION UTILIZING MAMMOGRAPHIC GUIDANCE, BRACKET; LEFT FULL FIELD DIGITAL MAMMOGRAM HISTORY: 75-year-old woman with newly diagnosed left breast ductal carcinoma in situ from stereotactic biopsy of calcifications. Additional non-mass enhancement was seen extending posterior from the biopsy site on MRI. Patient underwent a benign MRI guided right breast biopsy. PROCEDURE AND FINDINGS: The procedure was discussed with the patient and informed consent was obtained. The breast was placed in a compression grid, and the area of interest was localized with digital mammography. After sterile preparation of the skin, 1% lidocaine was utilized for local anesthesia. A Magseed deployment needle was advanced bracketing the area of interest in the breast from a lateral approach utilizing digital mammographic guidance. Orthogonal views were obtained to confirm appropriate needle position, the magnetic localization seeds were deployed, and the needle removed. A Band-aid was placed on the skin. A two-view LEFT digital mammogram was performed post procedure and demonstrates the magnetic seeds are in expected position. There was no evidence of significant immediate complication. The attending radiologist, Dr. Akua Martinez M.D., was present throughout the entire procedure. Dr. Oswald Bautista (diagnostic international affairs vice president) also participated in this examination. us Janeen Cervantes MD IMG MAMMO PROCEDURES Fi nal Result * Brian Post Clip Placement Right (05/16/2025 1:30 PM CDT) Anatomical Region Laterality Modality Breast Right Mammography 05/16/2025 1:36 PM CDT Addenda Addendum by Presley Crabtree MD on 05/18/2025 12:40 PM CDT ADDENDUM: Pathology from biopsy of the right breast showed Breast, right, core biopsy - Pseudoangiomatous stromal hyperplasia - Columnar cell change - No evidence of atypia or malignancy Please refer to pathology report for details. Pathology is benign and concordant. Continued clinical and oncologic management of known LEFT breast ductal carcinoma in situ is recommended. Results and recommendations will be discussed with the patient by [facility] or referring provider staff and will be separately documented in the medical record. Electronically signed by: Presley Crabtree MD Impressions 05/16/2025 1:36 PM CDT Successful vacuum-assisted core needle biopsy of RIGHT breast utilizing MRI guidance. Pathology is pending. ASSESSMENT: Post Procedure Mammograms for Marker Placement The radiology attending physician has personally reviewed this study, and had reviewed and/or edited this written report and agrees with it. Electronically signed by: Presley Crabtree MD Narrative 05/16/2025 1:36 PM CDT EXAMINATION: RIGHT BREAST VACUUM-ASSISTED CORE BIOPSY UTILIZING MRI GUIDANCE, ONE LESION/SITE; PLACEMENT OF A BIOPSY TISSUE MARKER CLIP; AND RIGHT UNILATERAL FULL FIELD DIGITAL POST-PROCEDURE MAMMOGRAM WITH TOMOSYNTHESIS HISTORY: Abnormal breast MRI. 75-year-old woman with left breast ductal carcinoma in situ with enhancing mass identified in the right breast. MR guided core needle biopsy is requested to evaluate for malignancy. COMPARISON: MRI 05/08/2025 CONTRAST: Gadoterate meglumine, 14 ml BREAST PARENCHYMAL COMPOSITION: There are scattered areas of fibroglandular density. PROCEDURE AND FINDINGS: The risks, potential benefits, and reasonable alternatives of the procedure were discussed with the patient. Her questions were answered, and written informed consent was obtained. The patient was placed in the prone position on the MRI table. After sterile preparation of the skin, the breast was placed in a compression grid. Magnetic resonance imaging was performed with a dedicated breast imaging coil before and after intravenous administration of gadolinium, from which subtracted images were obtained. 1% lidocaine and 2% lidocaine with epinephrine were utilized for local anesthesia and hemostasis about the biopsy site. A small skin incision was made with a #11 scalpel blade. A 9 gauge Suros introducer needle and sheath were then advanced through the skin incision to the target lesion from a lateral approach utilizing MR guidance. Additional magnetic resonance images were obtained to confirm appropriate sheath positioning. Subsequently, a 9 gauge Suros vacuum assisted biopsy needle was advanced through the sheath and a total of 8 tissue cores were obtained. Post biopsy magnetic resonance images confirm biopsy site changes in the expected position. A TriMark cork-shaped tissue marker clip was then placed at the biopsy site. The sheath was removed and hemostasis was achieved. Dermabond and an ice pack were applied. There was no evidence of significant immediate complication. A postbiopsy hematoma is present. A compression wrap was applied prior to release from the department. The patient was given verbal as well as written post procedural instructions prior to release from the department. The tissue cores were submitted in formalin to surgical pathology for histologic analysis. A RIGHT unilateral two-view full field digital mammogram with digital breast tomosynthesis was obtained post procedure and this demonstrates that the tissue marker clip is along the inferior aspect of the biopsy cavity secondary to displacement by hematoma. The attending radiologist, Dr. Presley Crabtree MD, was present throughout the entire procedure. Dr. Oswald Bautista (diagnostic international affairs vice president) also participated in this examination. us Subha NICHOLSON IMG MAMMO PROCEDURES Edited Res ult - Final * MRI Guided Breast Biopsy Right (05/16/2025 12:48 PM CDT) Anatomical Region Laterality Modality Breast Right Magnetic Resonan ce 05/16/2025 1:36 PM CDT Addenda Addendum by Presley Crabtree MD on 05/18/2025 12:40 PM CDT ADDENDUM: Pathology from biopsy of the right breast showed Breast, right, core biopsy - Pseudoangiomatous stromal hyperplasia - Columnar cell change - No evidence of atypia or malignancy Please refer to pathology report for details. Pathology is benign and concordant. Continued clinical and oncologic management of known LEFT breast ductal carcinoma in situ is recommended. Results and recommendations will be discussed with the patient by [facility] or referring provider staff and will be separately documented in the medical record. Electronically signed by: Presley Crabtree MD Impressions 05/16/2025 1:36 PM CDT Successful vacuum-assisted core needle biopsy of RIGHT breast utilizing MRI guidance. Pathology is pending. ASSESSMENT: Post Procedure Mammograms for Marker Placement The radiology attending physician has personally reviewed this study, and had reviewed and/or edited this written report and agrees with it. Electronically signed by: Presley Crabtree MD Narrative 05/16/2025 1:36 PM CDT EXAMINATION: RIGHT BREAST VACUUM-ASSISTED CORE BIOPSY UTILIZING MRI GUIDANCE, ONE LESION/SITE; PLACEMENT OF A BIOPSY TISSUE MARKER CLIP; AND RIGHT UNILATERAL FULL FIELD DIGITAL POST-PROCEDURE MAMMOGRAM WITH TOMOSYNTHESIS HISTORY: Abnormal breast MRI. 75-year-old woman with left breast ductal carcinoma in situ with enhancing mass identified in the right breast. MR guided core needle biopsy is requested to evaluate for malignancy. COMPARISON: MRI 05/08/2025 CONTRAST: Gadoterate meglumine, 14 ml BREAST PARENCHYMAL COMPOSITION: There are scattered areas of fibroglandular density. PROCEDURE AND FINDINGS: The risks, potential benefits, and reasonable alternatives of the procedure were discussed with the patient. Her questions were answered, and written informed consent was obtained. The patient was placed in the prone position on the MRI table. After sterile preparation of the skin, the breast was placed in a compression grid. Magnetic resonance imaging was performed with a dedicated breast imaging coil before and after intravenous administration of gadolinium, from which subtracted images were obtained. 1% lidocaine and 2% lidocaine with epinephrine were utilized for local anesthesia and hemostasis about the biopsy site. A small skin incision was made with a #11 scalpel blade. A 9 gauge Suros introducer needle and sheath were then advanced through the skin incision to the target lesion from a lateral approach utilizing MR guidance. Additional magnetic resonance images were obtained to confirm appropriate sheath positioning. Subsequently, a 9 gauge Suros vacuum assisted biopsy needle was advanced through the sheath and a total of 8 tissue cores were obtained. Post biopsy magnetic resonance images confirm biopsy site changes in the expected position. A TriMark cork-shaped tissue marker clip was then placed at the biopsy site. The sheath was removed and hemostasis was achieved. Dermabond and an ice pack were applied. There was no evidence of significant immediate complication. A postbiopsy hematoma is present. A compression wrap was applied prior to release from the department. The patient was given verbal as well as written post procedural instructions prior to release from the department. The tissue cores were submitted in formalin to surgical pathology for histologic analysis. A RIGHT unilateral two-view full field digital mammogram with digital breast tomosynthesis was obtained post procedure and this demonstrates that the tissue marker clip is along the inferior aspect of the biopsy cavity secondary to displacement by hematoma. The attending radiologist, Dr. Presley Crabtree MD, was present throughout the entire procedure. Dr. Oswald Bautista (diagnostic international affairs vice president) also participated in this examination. Subha NICHOLSON [facility] MRI PROCEDURES Edited Resul t - Final * Surgical pathology (05/16/2025 12:35 PM CDT) Tissue (Breast biopsy, needle core) 05/16/2025 12:35 PM CDT Narrative PATHOLOGY [facility] - 05/17/2025 2:45 PM CDT EPIC results best viewed via link to PDF [facility] [place] [address] Note to Patients: This report may contain a detailed description of human tissue sent by a health care provider to the laboratory for pathologic evaluation. The content of this report is essential for diagnosis and may provide important critical findings. This information may be unfamiliar to patients to review without a medical professional present. It is advised that the patient review this report in the presence of a health care provider who can answer questions and explain the details. SURGICAL PATHOLOGY REPORT FINAL Patient Name: CORNELIA BUSBY Gender: F : 1950 (Age: 75) Address: [address] [place] [address] [place] [phone] [facility] #: [id number] Taken:05/16/2025 Received:05/16/2025 Reported: 05/17/2025 Patient Type: [facility] Ancillary Service: Laboratory Location: Physician(s): Unknown Doctor LYN Barriga M.D. Diagnosis: Breast, right, core biopsy - Pseudoangiomatous stromal hyperplasia - Columnar cell change - No evidence of atypia or malignancy elca/05/17/2025 14:45 By this signature, I attest that the above diagnosis is based upon my personal examination of the slides(and/or other material indicated in the diagnosis). Vicenta Wilson MD Report Electronically Reviewed and Signed Out By Vicenta Wilson MD 05/17/2025 14:45:54 History: The patient is a 75-year-old woman presenting with ductal carcinoma in-situ of left breast; abnormal MRI of right breast. Operative procedure: Right breast biopsy, BI-RADS 4B. Specimen(s) Received: A: Right breast mri biopsy, nme cat 4b Gross Description: Received in formalin, labeled with the patient s identifiers and right breast non mass enhancement BI-RADS 4B are 12 yellow and white, hemorrhagic cores of fibrofatty tissue (0.5-3.1 cm each in length by 0.2- 0.3 cm in diameter). Labeled A1 to A6. Jar 0. Placed in formalin immediately after collection. Total fixation time= 6.0 hours. sxst/05/16/2025 14:36 PA(s): Joleen Raines By this signature, I attest that the above diagnosis is based upon my personal examination of the slides(and/or other material). Addenda/Procedures The performance characteristics of some immunohistochemical stains, fluorescence in-situ hybridization tests and immunophenotyping by flow cytometry cited in this report (if any) were determined by the Surgical Pathology and Flow Cytometry Departments at [facility] as part of an ongoing coding quality coordinator program and in compliance with federally mandated regulations drawn from the Clinical Laboratory Improvement Act of 1988 (CLIA '88). Some of these tests rely on the use of analyte specific reagents and are subject to specific labeling requirements by the US Food and Drug Administration. Such diagnostic tests may only be performed in a facility that is certified by the Department of Health and Human Services as a high complexity laboratory under CLIA '88. The FDA has determined that such clearance or approval is not necessary. This test is used for clinical purposes. It should not be regarded as investigational or for research. Nevertheless, federal rules concerning the medical use of analyte specific reagents require that the following disclaimer be attached to the report: This test was developed and its performance characteristics determined by the Surgical Pathology and Flow Cytometry Departments of [facility]. It has not been cleared or approved by the U. S. Food and Drug Administration. IMAGES AND SCANNED DOCUMENTS, IF INCLUDED, ONLY VIEWABLE IN PDF VERSION OF REPORT Subha NICHOLSON LAB PATHOLOGY ORDERABLES Final Result PATHOLOGY [facility] 3rd Floor [place], [place] [phone] * (ABNORMAL) MRI Breast Bilateral W WO Contrast (05/08/2025 10:01 AM CDT) Anatomical Region Laterality Modality Breast Bilateral Magnetic Resonan ce 05/08/2025 11:0 2 AM CDT Impressions 05/08/2025 12:07 PM CDT A 3.2 area of irregular non-mass enhancement in the left upper outer breast consistent with biopsy-proven ductal carcinoma in situ. No suspicious mass or non-mass enhancement in the right breast. A 5 mm enhancing focus in the right lower slightly outer breast at anterior depth which is of moderate suspicion for malignancy, MRI guided biopsy is recommended. OVERALL FINAL ASSESSMENT: SUSPICIOUS. BI-RADS Category 4B: Moderate suspicion for malignancy. RECOMMENDATION: MRI-guided biopsy of 5 mm enhancing focus in the right lower slightly outer breast at anterior depth. Continue clinical and oncologic management of known malignancy. Dictated by: Mary Ann Posey M.D. The radiology attending physician has personally reviewed this study, and had reviewed and/or edited this written report and agrees with it. Electronically signed by: MD Lucy Jacobsen 05/08/2025 12:07 PM CDT EXAMINATION: 1. MRI EXAMINATION OF THE BREASTS WITH AND WITHOUT CONTRAST 2. 3D POST PROCESSING ON A DEDICATED 3D WORKSTATION HISTORY: New diagnosis of breast cancer. 75-year-old woman with newly diagnosed left upper outer breast ductal carcinoma in situ. TECHNIQUE: MRI examination of the breasts per breast tumor protocol with and without gadolinium contrast. A dedicated breast imaging coil was used. The images were transferred to a breast CAD system for 3D post processing and contrast kinetics analysis. CONTRAST: Gadoterate meglumine, 16 ml COMPARISON: Mammogram 04/18/2025 and 04/17/2025 BREAST COMPOSITION: Scattered fibroglandular tissue BACKGROUND PARENCHYMAL ENHANCEMENT: Mild FINDINGS: In the left upper outer breast at mid to posterior depth there is an irregular enhancing non-mass enhancement that measures 3.2 x 2.8 x 2.4 cm with associated mixed kinetics (H 78.3). There is a mildly irregular 5 mm focus of enhancement in the right lower slightly outer breast at anterior depth without significant kinetics (H 13.3). No abnormally enlarged lymph nodes are identified in the visualized portions of either axilla. Subha NICHOLSON [facility] MRI PROCEDURES Final Result * Brian Post Clip Placement Left (04/18/2025 3:05 PM CDT) Anatomical Region Laterality Modality Breast Left Mammography 04/18/2025 3:56 PM CDT Addenda Addendum by Monet Finley MD on 04/19/2025 12:25 PM CDT ADDENDUM: Pathology from stereotactic guided biopsy of calcifications in the upper outer posterior left breast, with appropriately positioned mini cork clip showed: - Ductal carcinoma in situ (DCIS) - Greatest linear dimension: at least 5 mm, present in multiple cores - Nuclear grade: 2/3 by SBR criteria - Cribriform and comedo sub-types - No invasion identified - Calcification identified in DCIS, but also present in stromal and benign ducts - Biomarkers pending Please refer to pathology report for details. Pathology is malignant and concordant. Surgical management and MRI (unless there are contraindications to MRI) are recommended. Results and recommendations will be discussed with the patient by [facility] or referring provider staff and will be separately documented in the medical record. Electronically signed by: Monet Finley MD Impressions 04/18/2025 3:56 PM CDT Uncomplicated vacuum-assisted core biopsy of calcifications in the upper outer posterior left breast, with appropriately positioned mini cork clip. Pathology is pending. ASSESSMENT: Post Procedure Mammograms for Marker Placement Electronically signed by: Monet Finley MD Narrative 04/18/2025 3:56 PM CDT EXAMINATION: LEFT STEREOTACTIC BREAST VACUUM-ASSISTED CORE BIOPSY UTILIZING TOMOSYNTHESIS AND STEREOTACTIC GUIDANCE, PLACEMENT OF A BIOPSY SITE TISSUE MARKER CLIP, AND LEFT FULL FIELD DIGITAL MAMMOGRAM WITH DIGITAL BREAST TOMOSYNTHESIS HISTORY: Abnormal mammogram. 75-year-old woman with calcifications in the upper outer posterior left breast. Image guided core needle biopsy is requested to evaluate for malignancy. COMPARISON: Outside hospital mammograms, with the most recent one dated 03/06/2025. BREAST PARENCHYMAL COMPOSITION: There are scattered areas of fibroglandular density. PROCEDURE AND FINDINGS: The risks and potential benefits of the procedures were discussed with the patient and written informed consent was obtained. After a time-out procedure, the patient was placed in the prone position on the biopsy unit. The area of interest was localized and targeted utilizing digital imaging with tomosynthesis and stereotaxis. After sterile preparation of the skin, 1% lidocaine and 2% lidocaine with epinephrine were utilized for local anesthesia. A small skin incision was made with a #11 scalpel blade and a 9 gauge standard Brevera vacuum-assisted biopsy needle was advanced to the area of interest from a lateral approach utilizing stereotactic guidance. A total of 9 tissue cores were then obtained; these were submitted to surgical pathology in formalin for histologic analysis. The specimen radiograph demonstrates that the calcifications of interest are included within the tissue cores. A SecurMark Mini Cork tissue marker clip was placed at the biopsy site. The needle was removed, hemostasis was achieved, and Dermabond was applied. There was no evidence of significant immediate complication. The patient was given verbal as well as written post procedural instructions prior to release from the department. There is a tiny residual calcification along the medial aspect of the biopsy site. A two-view LEFT digital mammogram, including digital breast tomosynthesis, post procedure demonstrates that the tissue marker clip is in the expected position. The attending radiologist, Dr. Monet Finley MD, was present throughout the entire procedure. [facility] NICHOL[facility] IMG MAMMO PROCEDURES Edited Res ult - Final * Stereotactic Breast Biopsy Left (04/18/2025 2:49 PM CDT) Anatomical Region Laterality Modality Breast Left Mammography 04/18/2025 3:56 PM CDT Addenda Addendum by Monet Finley MD on 04/19/2025 12:25 PM CDT ADDENDUM: Pathology from stereotactic guided biopsy of calcifications in the upper outer posterior left breast, with appropriately positioned mini cork clip showed: - Ductal carcinoma in situ (DCIS) - Greatest linear dimension: at least 5 mm, present in multiple cores - Nuclear grade: 2/3 by SBR criteria - Cribriform and comedo sub-types - No invasion identified - Calcification identified in DCIS, but also present in stromal and benign ducts - Biomarkers pending Please refer to pathology report for details. Pathology is malignant and concordant. Surgical management and MRI (unless there are contraindications to MRI) are recommended. Results and recommendations will be discussed with the patient by [facility] or referring provider staff and will be separately documented in the medical record. Electronically signed by: Monet Finley MD Impressions 04/18/2025 3:56 PM CDT Uncomplicated vacuum-assisted core biopsy of calcifications in the upper outer posterior left breast, with appropriately positioned mini cork clip. Pathology is pending. ASSESSMENT: Post Procedure Mammograms for Marker Placement Electronically signed by: Monet Finley MD Narrative 04/18/2025 3:56 PM CDT EXAMINATION: LEFT STEREOTACTIC BREAST VACUUM-ASSISTED CORE BIOPSY UTILIZING TOMOSYNTHESIS AND STEREOTACTIC GUIDANCE, PLACEMENT OF A BIOPSY SITE TISSUE MARKER CLIP, AND LEFT FULL FIELD DIGITAL MAMMOGRAM WITH DIGITAL BREAST TOMOSYNTHESIS HISTORY: Abnormal mammogram. 75-year-old woman with calcifications in the upper outer posterior left breast. Image guided core needle biopsy is requested to evaluate for malignancy. COMPARISON: Outside hospital mammograms, with the most recent one dated 03/06/2025. BREAST PARENCHYMAL COMPOSITION: There are scattered areas of fibroglandular density. PROCEDURE AND FINDINGS: The risks and potential benefits of the procedures were discussed with the patient and written informed consent was obtained. After a time-out procedure, the patient was placed in the prone position on the biopsy unit. The area of interest was localized and targeted utilizing digital imaging with tomosynthesis and stereotaxis. After sterile preparation of the skin, 1% lidocaine and 2% lidocaine with epinephrine were utilized for local anesthesia. A small skin incision was made with a #11 scalpel blade and a 9 gauge standard Brevera vacuum-assisted biopsy needle was advanced to the area of interest from a lateral approach utilizing stereotactic guidance. A total of 9 tissue cores were then obtained; these were submitted to surgical pathology in formalin for histologic analysis. The specimen radiograph demonstrates that the calcifications of interest are included within the tissue cores. A SecurMark Mini Cork tissue marker clip was placed at the biopsy site. The needle was removed, hemostasis was achieved, and Dermabond was applied. There was no evidence of significant immediate complication. The patient was given verbal as well as written post procedural instructions prior to release from the department. There is a tiny residual calcification along the medial aspect of the biopsy site. A two-view LEFT digital mammogram, including digital breast tomosynthesis, post procedure demonstrates that the tissue marker clip is in the expected position. The attending radiologist, Dr. Monet Finley MD, was present throughout the entire procedure. Subha NICHOLSON IM MAMMO PROCEDURES Edited Res ult - Final * Surgical pathology (04/18/2025 2:36 PM CDT) Tissue (Breast biopsy, needle core) 04/18/2025 2:36 PM CDT Comment:LEFT -stereo biopsy- calcifications- upper outer posterior- BIRADS 4C Narrative PATHOLOGY TEMP [facility]B FOR ASP - 04/19/2025 11:51 AM CDT EPIC results best viewed via link to PDF [facility] [place] [address] Note to Patients: This report may contain a detailed description of human tissue sent by a health care provider to the laboratory for pathologic evaluation. The content of this report is essential for diagnosis and may provide important critical findings. This information may be unfamiliar to patients to review without a medical professional present. It is advised that the patient review this report in the presence of a health care provider who can answer questions and explain the details. SURGICAL PATHOLOGY REPORT FINAL WITH ADDENDUM Patient Name: CORNELIA BUSBY Gender: F : 1950 (Age: 75) Address: [address] [place] [address] Hospital #: [id number] Taken:04/18/2025 Received:04/18/2025 Reported: 04/19/2025 Patient Type: [facility] Ancillary Service: UNKNOWN Location: Physician(s): MD Meera Mar M.D. LYN Barriga Diagnosis: A. Breast, left, upper outer calcifications, biopsy: - Ductal carcinoma in situ (DCIS) - Greatest linear dimension: at least 5 mm, present in multiple cores - Nuclear grade: 2/3 by SBR criteria - Cribriform and comedo sub-types - No invasion identified - Calcification identified in DCIS, but also present in stromal and benign ducts - Biomarker studies are pending and will be reported in a separate addendum juro/04/19/2025 11:31 By this signature, I attest that the above diagnosis is based upon my personal examination of the slides(and/or other material indicated in the diagnosis). Familia Lincoln M.D. Report Electronically Reviewed and Signed Out By Familia Lincoln M.D. 04/19/2025 11:51:12 Diagnosis Comment This result was flagged as significant and was sent to Dr. Hurt via [employer] chat on 04/19/25. Reason(s): To the best of our knowledge, this is the first diagnosis of this type of malignancy rendered for this patient. Jenn Arce D.O. History: The patient is a 75-year-old woman presenting with abnormal mammogram. Operative procedure: Left stereo biopsy BI-RADS 4C. Specimen(s) Received: A: Left stereo biopsy, calcifications, upper outer posterior, birads 4c Gross Description: Received in formalin, labeled with the patient s identifiers and left stereo biopsy calcifications upper outer posterior BI- RADS 4C are 20 yellow-red cores of fibrofatty tissue (measuring 0.8 to 2.5 cm in length by 0.4 cm in diameter. The cores designated on the jar lid are labeled A1 to A4 and the remaining cores are labeled A5 to A10. Jar 0. Placed in formalin immediately after collection. Total fixation time= 7.5 hours. elsw/04/18/2025 17:46 PA(s): Gertrudis Stuart By this signature, I attest that the above diagnosis is based upon my personal examination of the slides(and/or other material). Addenda/Procedures Addendum Ordered:04/20/2025Status:Signed OutAddendum Complete:04/20/2025y:Familia Lincoln M.D.Addendum Signed Out:04/20/2025 Addendum Diagnosis BREAST BIOMARKER RESULTS ESTROGEN RECEPTOR: Positive Benjamin Score: Proportion 5/5 Intensity 3/3 Total Score 8/8 TUMOR HISTOLOGIC TYPE: Ductal carcinoma in situ HISTOLOGICAL GRADE BY ESBR CRITERIA: N/A (for DCIS or metastatic carcinoma) Technical Notes Estrogen receptor (ER), progesterone receptor (MA), and HER2 were evaluated by immunohistochemistry (IHC) by morphometric analysis in routine formalin-fixed paraffin-embedded tissue using a proprietary polymer- based detection system and instrumentation by [employer] per third hand's recommendation. The IHC results for ER (antibody SP1) and MA (antibody 1E2) were quantified and interpreted (positive vs negative) using the Benjamin score (total score range = 0 to 8; positive >2) (see: Mod Pathol 11:155, 1997; J Clin Oncol 17:1474, 1998; Mod Pathol 17:1545, 2004; Arch Pathol Lab Med 144:545, 2020). Pathway Her2 is a trademark of [employer] The IHC results for Pathway Her2 (antibody 4B5 rabbit monoclonal antibody) were scored in compliance with the ASCO/CAP guidelines (see: J Clin Oncol 25:118, 2007; Arch Pathol Lab Med 131:18, 2007, Arch Pathol Lab Med 142:1364, 2018). Benjamin score for estrogen and progesterone receptor evaluation: The Benjamin score combines the percentage of positive cells [proportion score: 0 (0%), 1 (<1%), 2 (1-10%), 3 (11- 33%), 4 (34-66%), 5 (>67%)] and the intensity of the reaction product (intensity score: 0-3). The two scores are added together for a final score. A combined score of >2 is considered positive. Her2 Interpretation guide Score 0: No membrane staining is observed, or immunoreactivity in <=10% of tumor cells; score 1+: incomplete membrane staning that is faint/barely perceptible and within >10% of tumor cells; score 2+: circumferential membrane staining that is incomplete and/or weak/moderate and within >10% of tumor cells, or complete and circumferential membrane staining that is intense and within <=10% of tumor cells; score 3+: intense and uniform circumferential membrane staining in >10% of tumor cells. A strong membranous (chicken-wire) pattern should be present. Ki-67 Technical Note and Interpretation: Testing for Ki-67 is performed at the request of the clinical teams. Ki-67 was evaluated by immunohistochemistry (IHC) in routine formalin-fixed paraffin-embedded tissue using rabbit monoclonal antibody to Ki-67 (clone [id number])and a proprietary polymer-based detection system andinstrumentation by [employer] per third hand's recommendation. The index was determined by manual morphometric analysis of at least 3 high power lance and calculating the proportion of tumor cells with positive nuclear staining. Control expression, sample adequacy, and uniformity of staining were all assessed. For uniform staining the index is determined by 3 randomly selected high power lance and calculating the proportion of tumor cells with positive nuclear staining. For non-uniform staining, the average across the stained specimen is reported (see: J Natl Cancer Inst 103:1656, 2011). Given the absence of inter-laboratory standardization for this assay, proliferation indices must be interpreted with caution and no prognostic thresholds can be provided. Published thresholds may or may not be relevant to the reported results and findings should be interpreted in conjunction with allother relevant clinical and pathological data. By this signature, I attest that the above diagnosis is based upon my personal examination of the slides(and/or other material indicated in the diagnosis). Familia Lincoln M.D.Report Electronically Reviewed and Signed Out By Familia Lincoln M.D. 04/20/2025 08:29:54Jenn Arce D.O. The performance characteristics of some immunohistochemical stains, fluorescence in-situ hybridization tests and immunophenotyping by flow cytometry cited in this report (if any) were determined by the Surgical Pathology and Flow Cytometry Departments at [facility] as part of an ongoing coding quality coordinator program and in compliance with federally mandated regulations drawn from the Clinical Laboratory Improvement Act of 1988 (CLIA '88). Some of these tests rely on the use of analyte specific reagents and are subject to specific labeling requirements by the US Food and Drug Administration. Such diagnostic tests may only be performed in a facility that is certified by the Department of Health and Human Services as a high complexity laboratory under CLIA '88. The FDA has determined that such clearance or approval is not necessary. This test is used for clinical purposes. It should not be regarded as investigational or for research. Nevertheless, federal rules concerning the medical use of analyte specific reagents require that the following disclaimer be attached to the report: This test was developed and its performance characteristics determined by the Surgical Pathology and Flow Cytometry Departments of [facility]. It has not been cleared or approved by the U. S. Food and Drug Administration. IMAGES AND SCANNED DOCUMENTS, IF INCLUDED, ONLY VIEWABLE IN PDF VERSION OF REPORT [facility]OL[facility] LAB PATHOLOGY ORDERABLES Final Result PATHOLOGY TEMP LLB FOR ASP * (ABNORMAL) Breast Imaging DX Outside Consult (04/17/2025 7:29 PM CDT) Anatomical Region Laterality Modality Breast N/A Mammography 04/18/2025 8:27 AM CDT Impressions 04/18/2025 8:32 AM CDT 1. Fine-linear branching and fine pleomorphic calcifications in the upper outer LEFT breast are highly suspicious for malignancy. Recommend stereotactic biopsy for further evaluation. 2. No evidence of malignancy in the RIGHT breast. OVERALL FINAL ASSESSMENT: SUSPICIOUS. BI-RADS Category 4C: High suspicion for malignancy. RECOMMENDATION: Stereotactic biopsy. NOTE: The findings, conclusions and recommendations within this report do not replace the initial findings, conclusions and recommendations made at the facility where the study was performed based upon the imaging and clinical condition at that time. Review of the prior report and correlation with the clinical history are necessary. The provided images may or may not represent the [place] source data set and thus may contain changes which may lower the sensitivity of the second opinion interpretation. Dictated by: Jenn Willis MD The radiology attending physician has personally reviewed this study, and had reviewed and/or edited this written report and agrees with it. Electronically signed by: MD Lucy Carson 04/18/2025 8:32 AM CDT EXAMINATION: REVIEW AND INTERPRETATION OF OUTSIDE IMAGING FACILITY PERFORMING OUTSIDE IMAGING: [facility] EXAM(S) REVIEWED: 1. BILATERAL SCREENING MAMMOGRAM WITH TOMOSYNTHESIS, 02/13/2025 2. LEFT UNILATERAL DIAGNOSTIC MAMMOGRAM WITH TOMOSYNTHESIS, 03/06/2025 DATE OF INTERPRETATION: 04/18/2025 HISTORY: 75-year-old woman presenting with screen detected calcifications in the upper outer LEFT breast.. COMPARISON: Multiple prior mammograms dating to 01/14/2024 BREAST PARENCHYMAL COMPOSITION: There are scattered areas of fibroglandular density. FINDINGS: BILATERAL SCREENING MAMMOGRAM WITH TOMOSYNTHESIS, 02/13/2025: There is no new suspicious findings in the RIGHT breast. There are fine pleomorphic calcifications in a linear distribution in the upper outer LEFT breast. LEFT SCREENING MAMMOGRAM WITH TOMOSYNTHESIS, 03/06/2025: Additional magnification views of the LEFT breast were obtained. There are fine pleomorphic and fine-linear branching calcifications in a linear distribution in the upper outer LEFT breast at posterior depth. These span an area measuring 2.3 cm in transverse dimension and 2.4 cm in the craniocaudal dimension. There is no suspicious mass or area of architectural distortion in the LEFT breast. 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
--- OUTSIDE RECORDS SUMMARY | 2025-07-02 17:13 | XMS_ITS | Data Portability ---
Author Organization [facility] Address [address] [place] [place] [address] Care Team Providers Care Issue Clerk Name Role Phone CHRISTIANA JOSEPH Primary Care Provider [phone] Assessment Encounter Date Assessment Date Assessment LastModified by Organization Details LastModified Time 07/24/2020 07/24/2020 Annual gynecological exam performed. Patient will come back in a year unless there are new symptoms. Not available 07/24/2020 10:55:52 Plan of Treatment Reminders Order Date Submit Date Provider Last Modified By Organization Details Last Modified Time Details Appointments None recorded. Lab None recorded. Referral None recorded. Procedures None recorded. Surgeries None recorded. Imaging DEXA, axial skeleton + vertebral fracture assessment 2019 [facility], [address], [place], [address], 1 12:09:46 Medication Orders Premarin 0.625 mg/gram vaginal cream 2019 [id number], [address] [place] [address], [address], 5 09:48:28 alclometaso ne 0.05 % topical ointment 2019 [id number], [address] [place] [address], [address], 5 09:46:21 Patient TargetsNo targets recorded. Patient Instructions Encounter Date Encounter Id Patient Instructions Last Modified By Organization Details Last Modified Time 07/24/2020 [id number] [email or web address] Not available 11:15:57 Reason for Referral None Reported. Results Created Date Observation Date Name Description Value Unit Range Abnormal Flag Note LastModifiedBy Organization Detail LastModifiedTime Result Notes None recorded. Problems Name Problem SNOMED Code Status Onset Date Resolution Date Notes Provider Name and Address Organization Details Recorded Time Microscop ic hematuria 178860360 Active 2011 MICROSCOPI C HEMATURIA; Recorded Elsewhere: No Locatio n: [facility] rce: EHR Chroni c: N Practice ID: 0001 Billa ble Time: 08:45:00 AM Not Available [facility] 0 21:52:51 Michael hematuria 642105473 Active 2012 GROSS HEMATURIA; Recorded Elsewhere: No Locatio n: [facility] rce: EHR Chroni c: N Practice ID: 0001 Billa ble Time: 11:15:00 AM Not Available [facility] 0 21:52:52 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 LEUKOCYTOS IS NOS;Record ed Elsewhere: No Locatio n: [facility] rce: EHR Chroni c: N [...] itis, unspecifie d;Practice ID: 0001 Not Available [facility] 0 21:52:50 Atrophic vaginitis 07412050 Active 2013 Vaginitis Atrophic Perimenopa usal;Pract ice ID: 0001 Not Available [facility] 0 21:52:[address] Concept Active 2015 Encntr for general adult medical exam w/o abnormal findings;P ractice ID: 0001 Not Available [facility] 0 21:52:[address] Concept Active 2015 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) (routine) w abnormal findings;P ractice ID: 0001 Not Available [facility] 0 21:52:[address] Concept Active 2015 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 5 10:50:09 Problem Notes None recorded. Procedures Surgical History Date Name Laterality Status Provider Name and Address Organization Details Recorded Time 05/28/20 25 supracervical hysterectomy with removal of both tubes and ovaries completed Judy Abner [facility] 06/04/2025 10:52:01 07/09/20 24 Date of Last Mammogram completed Judy Zaheer [facility] 12/26/2024 09:49:47 09/09/19 23 Date of Last Colonoscopy completed Judy Zaheer [facility] 12/26/2024 09:50:34 12/20/19 19 Date of [facility] 12/26/2024 10:00:30 08/09/19 19 arthroscopy of knee completed [facility] 12/26/2024 09:56:34 09/17/19 18 Cholecystectomy completed Layla Nino [facility] 07/24/2020 10:56:35 08/09/18 80 Dilation and Curettage completed [facility] 12/26/2024 09:55:33 Tonsillectomy completed [facility] 12/26/2024 09:55:49 Imaging Results None recorded. Procedure Notes None recorded. Medical Equipment None Reported. Allergies Allergen ID Allergen Name Allergen Category Reaction Reaction Severity Criticality Documentation Date Start Date Code Code System Note Provider Name and Address Organization Details Recorded Time 68343 Iodine and/or iodine compound (substanc e) Not available Not available Not available Not available 07/26/2020 96000 6004 SNOMED Comme nt: Locat ion: [place] [facility]; Not Available [facility] 0 14:20:48 2988 shrimp allergeni c extract food Not available Not available Not available 07/24/2020 02784 2 RxNorm Layla Nino renetta, [facility] 0 10:57:10 Medications Name Sig Start [...] Prescrib ed Elsewher e: No [facility] odify By: austyn morris DateTime : 08/17/19 05:18:19 PM Not Available Not Available Not Available amoxicill in 500 mg capsule take 1 capsule (500MG) by oral route 3 times every day for 10 days 09/04 completed Prescrib ed Elsewher e: No Locat ion: [facility] odify By: marianna Hortont er DateTime : 08/26/19 13 02:37:38 PM Not Available Not Available Not Available vitamin E 670 mg (1,000 unit) capsule 06/02 completed Prescrib ed Elsewher e: Yes Loca tion: [facility] odify By: mikal Torres ncounter DateTime : 05/30/20 11 03:36:51 PM Not Available Not Available Not Available Cholestyr amine 4 g oral powder Take 1 scoop every day by oral route. 12/26 completed Not Available Not Available Not Available meloxicam 15 mg tablet take 1 tablet (15MG) by oral route every day 06/21 completed Prescrib ed Elsewher e: Yes Loca tion: [facility] odify By: andrés morris DateTime : 06/13/20 13 10:30:00 AM Not Available Not Available Not Available alclometa sone 0.05 % topical cream apply by topical route every day a thin layer to the affected area(s) 12/26 completed Prescrib ed Elsewher e: No Locat ion: [facility] odify By: melvihappel michelle Horton ter DateTime : 12/22/19 19 04:04:29 PM Not Available Not Available Not Available clobetaso l 0.05 % topical cream apply by topical route every day a thin layer to the affected area(s) 09/03 completed Prescrib ed Elsewher e: No Locat ion: [facility] odify By: dayna Torres ncounter DateTime : 09/06/19 15 10:59:57 AM Not Available Not Available Not Available Zithromax Z-Mario 250 mg tablet take 2 tablet (500MG) by oral route every day for 1 day then 1 tablet (250 mg) by oral route once daily for 4 days 08/29 completed Prescrib ed Elsewher e: No Locat ion: [facility] odify By: cmedical Encount er DateTime : 08/25/19 13 02:55:32 [...] Prescrib ed Elsewher e: No Locat ion: [facility] odify By: andrés morris DateTime : 08/25/19 [...] Prescrib ed Elsewher e: Yes Loca tion: [facility] odify By: amkuhl E ncounter DateTime : 12/20/19 19 01:00:00 PM Not [...] Prescrib ed Elsewher e: Yes Loca tion: [facility] odify By: dayna chambers DateTime : 08/22/19 13 11:15:00 AM Not Available Not Available Not Available hydrochlo rothiazid e 12.5 mg capsule take 2 capsule by oral route every day 06/21 completed Prescrib ed Elsewher e: Yes Loca tion: [facility] odify By: andrés morris DateTime : 06/13/20 13 10:30:00 AM Not Available Not Available Not Available Glucosami ne 500 mg tablet 11/18 completed Prescrib ed Elsewher e: Yes Loca tion: [facility] odify By: dayna chambers DateTime : 05/30/20 [...] Prescrib ed Elsewher e: No Locat ion: [facility] odify By: dayna chambers DateTime : 07/05/20 [...] Prescrib ed Elsewher e: Yes [facility] By: andrés morris DateTime : 05/30/20 03:36:51 PM Not Available Not Available Not Available ondansetr on 4 mg disintegr ating tablet DISSOLVE 1 TABLET ON THE TONGUE EVERY 6 HOURS NEEDED FOR NAUSEA/V OMITING 12/26 completed Not Available Not Available Not Available glucosami ne-chondr oitin 500 mg-400 mg tablet 12/26 completed Prescrib ed Elsewher e: Yes [facility] By: finesse chambers DateTime : 12/20/19 01:00:00 PM Not Available Not Available Not Available Tums 200 mg (as calcium carbonate 500 mg) chewable tablet 12/26 completed Prescrib ed Elsewher e: Yes [facility]oca [facility] odify By: finesse germanuntabraham DateTime : 12/20/19 01:00:00 PM Not Available Not Available Not Available Calcium Citrate + D 315 mg-5 mcg (200 unit) tablet active Not Available Not Available Not Available Bactrim DS 800 mg-160 mg tablet take 1 tablet by oral route every 12 hours 06/13 completed Prescrib ed Elsewher e: No Locat ion: [facility] odify By: andrés morris DateTime : 09/21/19 13 09:38:30 AM Not Available Not Available Not Available Vitamin D3 25 mcg (1,000 unit) tablet 12/26 completed Prescrib ed Elsewher e: Yes Loca tion: [facility] odify By: finesse chambers DateTime : [...] Elsewher e: Yes Loca tion: [facility] odify By: dayna germanuntabraham DateTime : 08/22/19 13 11:15:00 AM Not Available Not Available Not Available Azo 95 mg tablet 06/21 completed Prescrib ed Elsewher e: Yes Loca tion: [facility] odify By: andrés morris DateTime : [...] Elsewher e: Yes Loca tion: [facility] odify By: dayna chambers DateTime : 05/30/20 11 03:36:51 PM Not Available Not Available Not Available Vitamin D3 10 mcg (400 unit) capsule 08/22 completed Prescrib ed Elsewher e: Yes [facility] By: andrés morris DateTime : [...] Elsewher e: Yes Loca tion: [facility] odify By: dayna Torres ncounter DateTime : 06/02/20 11 09:30:00 AM Not Available Not Available Not Available Citracal Plus Bone Density Builder 300 mg-200 unit-13.5 mg tablet 11/18 completed Prescrib ed Elsewher e: Yes Loca tion: [facility] odify By: dayna Torres ncounter DateTime : 05/30/20 11 03:36:51 PM Not Available Not Available Not Available Zolpimist 5 mg/spray (0.1 mL) oral spray spray 2 spray by translin gual route every day into the mouth, over the tongue at bedtime 12/19 completed Prescrib ed Elsewher e: Yes Loca tion: [facility] odify By: amkdiallo Torres ncounter DateTime : 06/02/20 11 09:30:00 AM Not Available Not Available Not Available Vitamin D3 50 mcg (2,000 unit) capsule Take 1 capsule every day by oral route. 12/26 completed Not Available Not Available Not Available turmeric root extract 12/26 completed Not Available Not Available Not Available Shingrix (PF) 50 mcg/0.5 mL intramusc ular suspensio n, kit TO BE ADMINIST ERED BY [employer] FOR IMMUNIZA TION 12/26 completed Not Available [...] Updated DateTime 12/26/2024 161.29 cm 29.8 kg/m2 82974.3 g 138/75 mm[Hg] Judy Zaheer [facility] 12/26/2024 09:46:02 Date Recorded Body height Body mass index (BMI) Body weight Systolic And Diastolic Provider Name and Address Organization Details Last Updated DateTime 05/17/2025 161.29 cm 31.4 kg/m2 15089.63 g 158/89 mm[Hg] Judy Schwab [facility] 05/17/2025 14:26:51 Date Recorded Body height Body mass index (BMI) Body weight Systolic And Diastolic Provider Name and Address Organization Details Last Updated DateTime 06/04/2025 161.29 cm 31 kg/m2 06120.44 g 146/82 mm[Hg] Judy Schwab [facility] 06/04/2025 10:49:36 Date Recorded Body height Body mass index (BMI) Body weight Systolic And Diastolic Provider Name and Address Organization Details Last Updated DateTime 07/24/2020 160.02 cm 31.4 kg/m2 87302.85 g 125/74 mm[Hg] Layla Trung [facility] 07/24/2020 10:56:17 Social History Question Answer Notes LastModified by Organizat ion Details LastModified Time Tobacco Smoking Status Never Smoker Judy Schwab [facility] 12/26/2024 09:53:27 Do You Have An [...] Or The Highest Degree You Have Received? [id number] Information not available 12/26/2024 Are There Any [...] anxious, or unable to sleep at night)? [id number] Information not available 12/26/2024 Family History Relationship [...] ICD10 Code Diagnosis IMO Codes Diagnosis Note [id number] Sofia Peguero [facility] [address] [address] 07/24/2020 10:45:30 07/24/2020 11:17:12 Gynecologic examination 50624394 Z01.419 Take Calcium with Vitamin D 12-1500mg daily. Do monthly self breast exams. It is advised to get annual flu shot in the fall and she could obtain at [facility] or [facility] care clinic. If you haven't received the [...] hx Monogamous x 50yrs Not current SA bc spouse has dementia [place] w[place] 75752 Dexa wnl per pt 01/2020 PCP: dr. christiana Joseph UTD colonoscop y USPSTF recommends against screening for cervical cancer in women older than 65yo who have had adequate prior screening & are not otherwise at high risk for cervical cancer. Pt verbalized understand ing and agreeable. RTO for med check yearly. Postmenopa usal osteopenia 298540457 M85.80 Atrophic vaginitis 66797 000 N95.2 [id number] Alvarado Orozco MD [place] [address] [address] 12/26/2024 09:08:40 12/26/2024 10:29:01 Prolapse of female genital organs 41770744 N81.9 [id number] this patient is a 74-year-ol d female [...] cooperate with Dr. Winston on that surgery. [id number] Alvarado Orozco MD [place] [address] [address] 05/17/2025 14:10:21 05/17/2025 15:21:32 Prolapse of female genital organs 90891315 N81.9 [id number] This patient is a 75-year-ol d female with pelvic organ prolapse. We have agreed to perform robotic assisted supracervi lakeisha hysterecto my and bilateral salpingo-o ophorectom y conjunctio n with a sacral colpopexy done by Dr. David Winston. Patient understand s the risks, benefits, and alternativ es. She has completed the informed consent process and is ready to proceed. [id number] Alvarado Orozco MD [place] [address] [address] 06/04/2025 10:23:00 06/04/2025 15:08:17 Postoperative visit 341375118 Z48.89 [id number] this patient is a 75-year-ol d female presents for postop follow-up. She underwent laparoscop ic / robotic supracervi lakeisha hysterecto my with BSO for prolapse. It was done in [facility] with sacral spinous ligament fixation. An [...] Member ID Malin Member ID Guarantor Name 05/17/2025 1 [place] Cornelia Busby [id number] Cornelia Mayl 05/17/2025 2 [employer]TRY [employer] (MEDICARE SUPPLEMENT) Cornelia Busby [id number] Cornelia Mayl 05/17/2025 1 [place] Cornelia Mayl [id number] Cornelia Busby 05/17/2025 2 [place] Cornelia Busby [id number] Cornelia Busby 06/12/2025 2 UNSPECIFIED REMIT PAYOR Cornelia Busby 06/04/2025 2 [employer] (MEDICARE SUPPLEMENT) Cornelia Busby [id number] Cornelia Busby Notes Date Note Type Note Provider Name and Address Organization Details Recorded Time 0 text/html Annual GYNReported by PatientHistoryFor history, patient reportsno gynecologic complaints.Genitourina ry symptomsFor urinary symptoms, patient reportsno hematuriaandno incontinence. For vulva, patient reportsno genital lesion. For vagina, patient reportsnormal vaginal discharge. For menstrual cycle, (postmenopausal).Breas t symptomsFor breast, patient reportsno breast pain,no breast lump, andno nipple discharge.Endocrine symptomsFor sexual complaints, patient reportsno sexual complaints,no pain during intercourse, andnormal libido. For menopausal symptoms, patient reportsno menopausal symptomsandnormal vaginal lubrication.Psychologi lakeisha symptomsFor psychological symptoms, patient reportsno depression,no anxiety, andno pmdd.Preventative measuresFor preventive measures, patient reportsencourage self breast examination,encourage regular exercise,encourage no tobacco use,encourage regular mammograms starting age 40,mammogram performed within the past year, andup to date on colonoscopy screening. Sofia Peguero, [facility]- [address] [place], [address], [facility] 07/24/2020 11:17:10 5 text/html this patient is a 74-year-old female [...] Alvarado Orozco MD [address], [place], [address], [facility] 12/26/2024 10:26:01 5 text/html This patient is a 75-year-old female with pelvic organ prolapse. We have agreed to perform robotic assisted supracervical hysterectomy and bilateral salpingo-oophorectomy conjunction with a sacral colpopexy done by Dr. David Winston. Patient understands the risks, benefits, and alternatives. She has completed the informed consent process and is ready to proceed. The patient understands the procedure. The procedure was described to the patient in great detail. the patient also understands the risks. The risks were also explained in detail. She understands that injuries May occur during surgery. She understands these injuries can result in hospitalization, more surgery, and severe illness. She understands there is risk of hemorrhage and infection. Alvarado Orozco MD [address], [place], [address], [facility] 05/17/2025 15:18:37 5 text/html this patient is a 75-year-old female [...] follow up as needed. Alvarado Orozco MD [address], [place], [address], [facility] 06/04/2025 15:05:55 OBGyn Episode Ob Episode Information Episode Created Date Number of Fetuses Patient Bloodtype Patient rh Status Prepregnancy Weight lbs Domestic Partner Domestic Partner Phone Father Name Freezer Machine Operator Status 12/27/19 25 1 CLOSED Fetus Data First Name Last Name Admitted to NICU Weight (g) Sex Living Outcome Pediatric Complications Fetus ID Race Codes Race Delivery Type Full Term 68380 Vaginal Delivery Romie Calculation Initial Romie Date [...] Domestic Partner Domestic Partner Phone Father Name Freezer Machine Operator Status 12/27/19 25 1 CLOSED Fetus Data First Name Last Name Admitted to NICU Weight (g) Sex Living Outcome Pediatric Complications Fetus ID Race Codes Race Delivery Type Full Term 35256 Vaginal Delivery Romie Calculation Initial Romie Date [...] Domestic Partner Domestic Partner Phone Father Name Freezer Machine Operator Status 12/27/19 25 1 CLOSED Fetus Data First Name Last Name Admitted to NICU Weight (g) Sex Living Outcome Pediatric Complications Fetus ID Race Codes Race Delivery Type Full Term 66909 Vaginal Delivery Romei Calculation Initial Romie Date Initial Exam Date [...] Domestic Partner Domestic Partner Phone Father Name Freezer Machine Operator Status 12/27/19 1 CLOSED Fetus Data First Name Last Name Admitted to NICU Weight (g) Sex Living Outcome Pediatric Complications Fetus ID Race Codes Race Delivery Type , Spontane ous 10704 Romie Calculation Initial Romie Date Initial Exam [...] Domestic Partner Domestic Partner Phone Father Name Freezer Machine Operator Status 12/27/19 1 CLOSED Fetus Data First Name Last Name Admitted to NICU Weight (g) Sex Living Outcome Pediatric Complications Fetus ID Race Codes Race Delivery Type Full Term 42874 Vaginal Delivery Romie Calculation Initial Romie Date [...] Domestic Partner Domestic Partner Phone Father Name Freezer Machine Operator Status 12/27/19 1 CLOSED Fetus Data First Name Last Name Admitted to NICU Weight (g) Sex Living Outcome Pediatric Complications Fetus ID Race Codes Race Delivery Type , Spontane ous 88909 Romie Calculation Initial Romie Date Initial Exam [...]
--- OUTSIDE RECORDS SUMMARY | 2025-07-02 17:13 | XMS_ITS | Continuity of Care Document ---
Author Organization [facility] Address [address] [place] [address] Care Team Providers Care Cigarette Maker Name Role Phone CHRISTIANA JOSEPH Primary Care Provider [phone] Assessment No assessment recorded. Plan of Treatment [...] instructions recorded. Reason for Referral None Reported. Problems Name Problem SNOMED Code Status Onset Date Resolution Date Notes Provider Name and Address Organization Details Recorded Time Microscop ic hematuria 241460212 Active 2011 MICROSCOPI C HEMATURIA; Recorded Elsewhere: No Locatio n: [facility]: EHR Chroni c: N Practice ID: 0001 Billa ble Time: 08:45:00 AM Not Available [facility] 0 21:52:51 Michael hematuria 804074673 Active 2012 GROSS HEMATURIA; Recorded Elsewhere: No Locatio n: [facility]: EHR Chroni c: N Practice ID: 0001 Billa ble Time: 11:15:00 AM Not Available [facility] 0 21:52:52 Leukocyto sis 886279877 Active 2012 LEUKOCYTOS IS NOS;Record ed Elsewhere: No Locatio n: [facility]ce: EHR Chroni c: N Practice ID: 0001 Billa ble Time: 11:15:00 AM Not Available [facility] 0 21:52:52 Adult health examinati on Active 2012 Routine general medical examinatio n at a health care facility;P ractice ID: 0001 Not Available [facility] 0 21:52:50 Specializ ed medical examinati on Active 2012 Routine gynecologi lakeisha examinatio n;Practice ID: 0001 Not Available [facility] 0 21:52:50 Screening for malignant neoplasm of cervix Active 2012 Pap Smear;Prac gavin ID: 0001 Not Available [facility] 0 21:52:50 Screening for malignant neoplasm of rectum Active 2012 Screening for malignant neoplasms of the rectum;Pra ctice ID: 0001 Not Available [facility] 0 21:52:50 Vaginitis and vulvovagi nitis Active 2012 Vaginitis and vulvovagin itis, unspecifie d;Practice ID: 0001 Not Available [facility] 0 21:52:50 Atrophic vaginitis 17434792 Active 2013 Vaginitis Atrophic Perimenopa usal;Pract ice ID: 0001 Not Available [facility] 0 21:52:[address] Concept Active 2015 Encntr for general adult medical exam w/o abnormal findings;P ractice ID: 0001 Not Available [facility] 0 21:52:[address] Concept Active 2015 Encntr for classroom assistant exam (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) (routine) w abnormal findings;P ractice ID: 0001 Not Available [facility] 0 21:52:[address] Concept Active 2015 Encntr for classroom assistant exam (general) (routine) w/o abn findings;P ractice ID: 0001 Not Available [facility] 0 21:52:50 Abdominal bloating 734145975 Active 2017 Abdominal distension (gaseous); Recorded Elsewhere: No Locatio n: [facility]: EHR Chroni c: N Practice ID: 0001 Billa ble Time: 08:45:00 AM Not Available [facility] 0 21:52:51 Malignant adenomato us neoplasm 385535330 Active 2024 [facility] 10:50:09 Problem Notes None recorded. Procedures Surgical History Date Name Laterality Status Provider Name and Address Organization Details Recorded Time 05/28/20 25 supracervical hysterectomy with removal of both tubes and ovaries completed [facility] 06/04/2025 10:52:01 07/09/20 24 Date of Last Mammogram completed [facility] 12/26/2024 09:49:47 09/09/19 23 Date of Last Colonoscopy completed [facility] 12/26/2024 09:50:34 12/20/19 19 Date of Last Pap Smear completed [facility] 12/26/2024 10:00:30 08/09/19 19 arthroscopy of knee completed [facility] 12/26/2024 09:56:34 09/17/19 18 Cholecystectomy completed Layla Trung [facility] 07/24/2020 10:56:35 08/09/18 80 Dilation and Curettage completed [facility] 12/26/2024 09:55:33 Tonsillectomy completed [facility] 12/26/2024 09:55:49 Imaging Results None recorded. Procedure Notes None recorded. Medical Equipment None Reported. Allergies Allergen ID Allergen Name Allergen Category Reaction Reaction Severity Criticality Documentation Date Start Date Code Code System Note Provider Name and Address Organization Details Recorded Time 21304 Iodine and/or iodine compound (substanc e) Not available Not available Not available Not available 07/26/2020 89627 6004 SNOMED Comme nt: [facility]at [facility]; Not Available [facility] 0 14:20:48 2988 shrimp allergeni c extract food Not available Not available Not available 07/24/2020 91006 2 RxNorm Layla Trung [place], [place] - [facility] 0 10:57:10 Medications Name Sig Start [...] Prescrib ed Elsewher e: No Locat ion: [facility] odify By: austyn morris DateTime : 08/17/19 19 05:18:19 PM Not Available Not Available Not Available amoxicill in 500 mg capsule take 1 capsule (500MG) by oral route 3 times every day for 10 days 09/04 completed Prescrib ed Elsewher e: No Locat ion: [facility] odify By: marianna Encount er DateTime : 08/26/19 13 02:37:38 PM Not Available Not Available Not Available vitamin E 670 mg (1,000 unit) capsule 06/02 completed Prescrib ed Elsewher e: Yes Loca tion: [facility]ify By: mikal chambers DateTime : 05/30/20 11 03:36:51 PM Not Available Not Available Not Available Cholestyr amine 4 g oral powder Take 1 scoop every day by oral route. 12/26 completed Not Available Not Available Not Available meloxicam 15 mg tablet take 1 tablet (15MG) by oral route every day 06/21 completed Prescrib ed Elsewher e: Yes Loca tion: [facility]ify By: andrés morris DateTime : 06/13/20 13 10:30:00 AM Not Available Not Available Not Available alclometa sone 0.05 % topical cream apply by topical route every day a thin layer to the affected area(s) 12/26 completed Prescrib ed Elsewher e: No Locat ion: [facility] odify By: austyn morris DateTime : 12/22/19 04:04:29 PM Not Available Not Available Not Available clobetaso l 0.05 % topical cream apply by topical route every day a thin layer to the affected area(s) 09/03 completed Prescrib ed Elsewher e: No [facility]ify By: dayna germanunter DateTime : 09/06/19 10:59:57 AM Not Available Not Available Not Available Zithromax Z-Mario 250 mg tablet take 2 tablet (500MG) by oral route every day for 1 day then 1 tablet (250 mg) by oral route once daily for 4 days 08/29 completed Prescrib ed Elsewher e: No Locat ion: [place] [facility] odify By: mohsendical Encount er DateTime : [...] Prescrib ed Elsewher e: No [facility]ify By: andrés morris DateTime : 08/25/19 [...] Elsewher e: Yes Loca tion: [facility] odify By: finesse chambers DateTime : 12/20/19 19 01:00:00 PM [...] Elsewher e: Yes Loca tion: [facility] odify By: dayna chambers DateTime : 08/22/19 13 11:15:00 AM Not Available Not Available Not Available hydrochlo rothiazid e 12.5 mg capsule take 2 capsule by oral route every day 06/21 completed Prescrib ed Elsewher e: Yes Loca tion: [facility] odify By: andrés morris DateTime : 06/13/20 13 10:30:00 AM Not Available Not Available Not Available Glucosami ne 500 mg tablet 11/18 completed Prescrib ed Elsewher e: Yes Loca tion: [facility] odify By: dayna chambers DateTime : [...] ed Elsewher e: No Locat ion: [facility] odify By: dayna germanunter DateTime : 07/05/20 17 03:14:11 PM Not [...] ed Elsewher e: Yes Loca tion: [facility] odify By: andrés morris DateTime : 05/30/20 11 03:36:51 PM Not Available Not Available Not Available ondansetr on 4 mg disintegr ating tablet DISSOLVE 1 TABLET ON THE TONGUE EVERY 6 HOURS NEEDED FOR NAUSEA/V OMITING 12/26 completed Not Available Not Available Not Available glucosami ne-chondr oitin 500 mg-400 mg tablet 12/26 completed Prescrib ed Elsewher e: Yes Loca tion: [facility] odify By: finesse germanuntabraham DateTime : 12/20/19 01:00:00 PM Not Available Not Available Not Available Tums 200 mg (as calcium carbonate 500 mg) chewable tablet 12/26 completed Prescrib ed Elsewher e: Yes Loca tion: [facility] odify By: finesse germanunter DateTime : 12/20/19 01:00:00 PM Not Available Not Available Not Available Calcium Citrate + D 315 mg-5 mcg (200 unit) tablet active Not Available Not Available Not Available Bactrim DS 800 mg-160 mg tablet take 1 tablet by oral route every 12 hours 06/13 completed Prescrib ed Elsewher e: No Locat ion: [facility] odify By: andrés morris DateTime : 09/21/19 09:38:30 AM Not Available Not Available Not Available Vitamin D3 25 mcg (1,000 unit) tablet 12/26 completed Prescrib ed Elsewher e: Yes Loca tion: [facility] odify By: finesse Torres ncounter DateTime : [...] Elsewher e: Yes Loca tion: [facility] odify By: dayna chambers DateTime : 08/22/19 13 11:15:00 AM Not Available Not Available Not Available Azo 95 mg tablet 06/21 completed Prescrib ed Elsewher e: Yes Loca tion: [facility] odify By: andrés morris DateTime : 06/13/20 [...] Elsewher e: Yes Loca tion: [facility] odify By: dayna chambers DateTime : 05/30/20 11 03:36:51 PM Not Available Not Available Not Available Vitamin D3 10 mcg (400 unit) capsule 08/22 completed Prescrib ed Elsewher e: Yes Loca tion: [facility] odify By: andrés morris DateTime : 06/02/20 [...] Elsewher e: Yes Loca tion: [facility] odify By: dayna chambers DateTime : 06/02/20 11 09:30:00 AM Not Available Not Available Not Available Citracal Plus Bone Density Builder 300 mg-200 unit-13.5 mg tablet 11/18 completed Prescrib ed Elsewher e: Yes Loca tion: [facility] odify By: dayna chambers DateTime : 05/30/20 11 03:36:51 PM Not Available Not Available Not Available Zolpimist 5 mg/spray (0.1 mL) oral spray spray 2 spray by translin gual route every day into the mouth, over the tongue at bedtime 12/19 completed Prescrib ed Elsewher e: Yes Loca tion: [facility] odify By: finesse chambers DateTime : 06/02/20 [...] Not Available Not Available Fluzone High-Dose Quad 2020-21 (PF) 240 mcg/0.7 mL IM syringe PHARMACI ST ADMINIST ERED IMMUNIZA TION ADMINIST ERED AT TIME OF DISPENSI NG 12/26 completed Not Available Not Available Not Available Vitals Date Recorded Body height Body mass index (BMI) Body weight Systolic And Diastolic Provider Name and Address Organization Details Last Updated DateTime 05/17/2025 161.29 cm 31.4 kg/m2 01240.63 g 158/89 mm[Hg] Judy Schwab [facility] 05/17/2025 14:26:51 Social History Question Answer Notes LastModified by Organizat ion Details LastModified Time Tobacco Smoking Status Never Smoker Judy Schwab [facility], [facility] 12/26/2024 09:53:27 Do You Have An [...] Or The Highest Degree You Have Received? [id number] Information not available 12/26/2024 Are There Any [...] Functional Status Question Answer Note LastModified by [employer] ion Details LastModified Time Do you use [...] anxious, or unable to sleep at night)? [id number] Information not available 12/26/2024 Family History Relationship [...] ICD10 Code Diagnosis IMO Codes Diagnosis Note [id number] Alvarado Orozco MD [place] [address] [address] 05/17/2025 14:10:21 05/17/2025 15:21:32 Prolapse of female genital organs 17920327 N81.9 [id number] This patient is a 75-year-ol d female with pelvic organ prolapse. We have agreed to perform robotic assisted supracervi lakeisha hysterecto my and bilateral salpingo-o ophorectom y conjunctio n with a sacral colpopexy done by Dr. David Winston. Patient understand s the risks, benefits, and alternativ es. She has completed the informed consent process and is ready to proceed. Health Concerns Section Related Observation LastModified by Organization Detai ls LastModified Time None Recorded Concern Status LastModified by Organization Details LastModified Time None Recorded Payers Encounter Date Sequence Insurance Name Policy Number Policy Malin Covered Member ID Malin Member ID Guarantor Name 05/17/2025 1 [place]ARE[place] (MEDICARE[place] Cornelia Busby [id number] Cornelia Busby Notes Date Note Type Note Provider Name and Address Organization Details Recorded Time 05/17/2025 text/html This patient is a 75-year-old female with pelvic organ prolapse. We have agreed to perform robotic assisted supracervical hysterectomy and bilateral salpingo-oophorecto my conjunction with a sacral colpopexy done by [...] Alvarado Orozco MD [address], [place], [address], [facility] 05/17/2025 15:18:37 OBGyn Episode No OBEpisode recorded.
== END 2025-07-02 15:42 | disposition home or self-care (01) ==
PROVIDERS: Emergency Provider Nurse Practitioner; PCP Family Medicine
DX: N30.01 Acute cystitis with hematuria (principal); I10 Essential (primary) hypertension
CPT/HCPCS: 81003; 87077; 87086; 87186; 99213; G0463